=== PATIENT | female | born 1945 | race Caucasian/White ===

== ENCOUNTER 2023-12-21 10:20 | Outpatient (CLI) | payer MEDICARE, OTHER, SELFPAY ==
[2023-12-21 11:41] LABS: Basophils Absolute Auto 0.1 K/mm3 (0.0-0.1); Eosinophils Absolute Auto 0.2 K/mm3 (0-0.3); Hematocrit 37.6 % (37.0-47.0); Immature Granulocyte Absolute 0.02 K/mm3 (0.00-0.031); Immature Granulocyte Percent A 0.3 % (0-0.5); Lymphocytes Percent Auto 28.7 % (18.3-44.2); Mean Corpuscular HGB Conc 34.6 g/dl (32-36); Mean Corpuscular Hemoglobin 33.7 pg (26-34); Mean Corpuscular Volume 97.4 fl (80-100); Mean Platelet Volume 9.4 fl (7.4-10.4); Monocytes Absolute Auto 0.5 K/mm3 (0.1-0.6); Monocytes Percent Auto 8.1 % (2.6-8.5); Neutrophils Absolute Auto 3.5 K/mm3 (1.3-6.7); Neutrophils Percent Auto 58.9 % (45.5-73.1); Platelet Count Result 171 k/mm3 (150-375); Red Blood Count 3.86 M/mm3 (4.2-5.4); White Blood Count 5.9 K/mm3 (4.5-10.0)
[2023-12-21 11:59] LABS: Alanine Aminotransferase 49 U/L (6-35); Albumin Level 4.6 g/dL (3.5-5.1); Alkaline Phosphatase 40 U/L (38-126); Anion Gap 8 mmol/L (4-12); Aspartate Amino Transferase 49 U/L (14-36); Bilirubin,Total 0.7 mg/dL (0.2-1.3); Blood Urea Nitrogen 15 mg/dL (7-17); Calcium 8.7 mg/dL (8.4-10.2); Carbon Dioxide 29 mmol/L (22-30); Chloride 102 mmol/L (98-107); Cholesterol 148 mg/dL (0-200); Estimated Glomerular Filt Rate > 60; Glucose 88 mg/dL (65-110); HDL Direct 68 mg/dL; Potassium 4.6 mmol/L (3.4-5.0); Sodium 139 mmol/L (137-145); Triglycerides 116 mg/dL (<150)
[2023-12-21 12:09] LABS: LDL Cholesterol Direct 56 mg/dL
== END 2023-12-21 10:21 | disposition home or self-care (01) ==
DX: I10 Essential (primary) hypertension (principal); E78.5 Hyperlipidemia, unspecified
CPT/HCPCS: 36415; 80053; 80061; 84443; 85025

== ENCOUNTER 2024-09-26 21:56 | Inpatient (IN) | payer MEDICARE, OTHER, SELFPAY ==
[2024-09-26] VITALS (7 sets, daily range): BP systolic 93–138; BP diastolic 48–106; PULSE 73; RESP 16; TEMP 36.3; O2SAT 99–100
--- NOTE | ~2024-09-26 | MR_ITS ---
EXAMINATION: MR MRCP wo/w con/w 3D wo ind DATE: 09/28/2024 11:53 INDICATION: Pancreatic lesion. Elevated liver function tests. TECHNIQUE: Magnetic resonance imaging (MRI) of the abdomen was performed without and with 14 mL Multi tara intravenous contrast. Sequences included coronal T2-weighted SS-FSE, coronal T2-weighted FS SS- FSE, coronal T2-weighted FS FIESTA, axial T2-weighted FS FIESTA, axial T2-weighted FIESTA, sagittal T 2-weighted SS-FSE, axial T1-weighted dual-echo FSPGR, axial T2-weighted SS-FSE, axial T1-weighted LAV A, axial T2-weighted STIR FSE. Thick-slab T2-weighted FRFSE-XL images were obtained for magnetic reso nance cholangiopancreatography (MRCP). Rotating maximum intensity projection 3-D reconstructions of t he volumetric data were created by the technologist. Postcontrast sequences included a time course of axial T1-weighted LAVA. COMPARISON: CT dated 09/27/2024 FINDINGS: ABDOMEN MRI: Heart size is normal. No pericardial effusion. Small bilateral pleural effusions with dependent conso lidation in the bilateral lower lobes. Couple T2 hyperintense nonenhancing hepatic cysts the larger m easuring 1.5 cm in the right hepatic lobe with a few thin internal septations. Gallbladder, spleen, p ancreas, bilateral adrenal glands and left kidney are normal. 5 mm T2 hyperintense cyst at the mid ri ght kidney. 1.6 x 1.2 cm cystic lesion at the head of the pancreas with a few smaller cystic lesions at the tail of the pancreas the next largest measuring 9 mm in maximal diameter. These all appear to demonstrate communication to the main pancreatic duct and are without evident solid enhancing soft ti ssue components again seen is edematous wall thickening of the colon beginning at the mid transverse colon and extending through the descending colon consistent with colitis. The appendix and visualized small bowel are unremarkable. Small amount of ascites scattered throughout the abdomen and pelvis. M etallic magnetic field artifact associated with bilateral vertical yarelis and pedicle screw fixation for an L2-L5 instrumented posterior spinal fusion as well as an anterior plate and screws for L5-S1 ante rior spinal fusion. ABDOMEN MRCP: No intrahepatic biliary ductal dilation. Common bile duct measures up to 5 mm in janee l diameter which is normal. No intraluminal filling defects to suggest choledocholithiasis. IMPRESSION: 1. Prominent edematous wall thickening of the distal transverse and descending colon consistent with colitis which could be infectious, inflammatory or ischemic in etiology. 2. 1.6 x 1.2 cm cystic lesion at the head of the pancreas with a few subcentimeter cystic lesions at the tail the pancreas which appear to demonstrate communication with the main pancreatic duct favorin g either pseudocysts and dilated pancreatic side branches related to prior acute pancreatitis or intr aductal papillary mucinous neoplasm (IPMN) versus less likely mucinous cystic neoplasm (MCN), and the less common serous cystadenoma and neuroendocrine tumor. Correlate for history of pancreatitis. Cons ider 2 year follow-up pre and postcontrast MRI. 3. Small amount of likely reactive ascites in the abdomen and pelvis. 4. Small bilateral pleural effusions with dependent consolidation the bilateral lower lobes which cou ld represent atelectasis or pneumonia. Reviewed, dictated and finalized at location A. IMPRESSION: 1. Prominent edematous wall thickening of the distal transverse and descending colon consistent with colitis which could be infectious, inflammatory or ischem ic in etiology. 2. 1.6 x 1.2 cm cystic lesion at the head of the pancreas with a few subcentime ter cystic lesions at the tail the pancreas which appear to demonstrate communi cation with the main pancreatic duct favoring either pseudocysts and dilated pa ncreatic side branches related to prior acute pancreatitis or intraductal papil deja mucinous neoplasm (IPMN) versus less likely mucinous cystic neoplasm (MCN) , and the less common serous cystadenoma and neuroendocrine tumor. Correlate fo r history of pancreatitis. Consider 2 year follow-up pre and postcontrast MRI. 3. Small amount of likely reactive ascites in the abdomen and pelvis. 4. Small bilateral pleural effusions with dependent consolidation the bilateral lower lobes which could represent atelectasis or pneumonia.
--- NOTE | ~2024-09-26 | CT_ITS ---
CT of the Abdomen and Pelvis: Indication: Abdominal pain Technique: 2.5 mm axial scans were obtained through the abdomen and pelvis following intravenous adm inistration of 100 cc of Omnipaque 350. Dose reduction technique was used on this scan by utilizing a utomated exposure control and iterative reconstruction technique. The dose-length product (DLP) was 6 47.05 mGy-cm. Findings: Scans through the lung bases are unremarkable. Small hepatic cysts are present. There is a probable cystic mass of the pancreatic head/neck measurin g 1.5 cm in diameter (axial image 69). The spleen, gallbladder, adrenals and kidneys are within letha l limits. There are atherosclerotic calcifications of the aorta. No lymphadenopathy. Suspected mild wall thickening of the large bowel, especially the distal transverse colon, descending colon, and sigmoid colon. No bowel obstruction. No abscess or free air. Images through the pelvis were performed. Urinary bladder unremarkable. No pelvic mass evident. No as cites. There is fusion of the spine from L2 through S1. Impression: Suspected infectious/inflammatory colitis involving the distal transverse colon, descending colon, an d sigmoid colon. No bowel obstruction. No abscess or free air. 1.5 cm probable cystic mass in the pancreatic head/neck. Consider follow-up MR/MRCP to further evalua te. Reviewed, dictated and finalized at location . Impression: Suspected infectious/inflammatory colitis involving the distal transverse colon , descending colon, and sigmoid colon. No bowel obstruction. No abscess or free air. 1.5 cm probable cystic mass in the pancreatic head/neck. Consider follow-up MR/ MRCP to further evaluate.
--- NOTE | ~2024-09-26 | XR_ITS ---
CHEST RADIOGRAPH CLINICAL HISTORY: syncope . COMPARISON: None available TECHNIQUE: Single portable view of the chest. FINDINGS The cardiomediastinal silhouette is unremarkable. The lungs are clear. IMPRESSION: No focal infiltrate or effusion. Reviewed, dictated and finalized at location A.
--- NOTE | ~2024-09-26 | CT_ITS ---
History: Syncope PROCEDURE: CT head without contrast. COMPARISON: None TECHNIQUE: Axial imaging of the head performed from the skull base to the vertex without IV contrast. Sagittal a nd coronal reformations obtained. DLP: 681 mGy-cm FINDINGS: The ventricles are enlarged. The dilatation of the ventricles is proportional to the degree of sulcal prominence, not uncommon in the senescent brain. Calcifications of the basal ganglia are present, a nonspecific finding. Decreased attenuation is identified within the periventricular white matter, likely secondary to micr ovascular ischemic disease, in a patient of this age. There is no mass, mass effect or midline shift. There is no abnormal extra-axial fluid collection or intracranial hemorrhage. Air-fluid level is identified within the bilateral maxillary sinuses. Mucoperiosteal thickening within the ethmoid sinuses. Air-fluid levels within the sphenoid sinuses. The mastoid air cells are well aerated. No acute displaced fractures within the overlying cranium. Impression: No acute intracranial hemorrhage or suspicious mass effect. Inflammatory sinus disease Reviewed, dictated and finalized at location A. Impression: No acute intracranial hemorrhage or suspicious mass effect. Inflammatory sinus disease
--- NOTE | 2024-09-26 22:07 | ECG_ITS ---
Test Date: 2024-09-26 22:01:22 Measurements Intervals [place] Rate: 70 P: 4 [place]: 176 QRS: -48 QRSD: 151 T: 92 QT: 449 QTc: 485 Interpretive Statements SINUS RHYTHM LEFT AXIS DEVIATION LEFT BUNDLE BRANCH BLOCK BASELINE ARTIFACT- I, II, III, AVR, AVL, AVF, V1-V2 ABNORMAL ECG No previous ECG available for comparison Electronically Signed On 09-27-2024 07:07:33 CDT by Vicente Potter D.O.
--- NOTE | 2024-09-26 22:17 | ED_ITS ---
HPI - General Adult General Chief complaint: Syncope Stated complaint: syncope Time Seen by Provider: 09/26/24 22:02 History of Present Illness HPI narrative: Patient 79-year-old female who presents emergency department with chief complaint of syncope and abdominal pain. The patient reports that she has had problems with irritable bowel and reports that she normally has a bowel movement every other day patient states that this evening she started having cramping in her abdomen reports he had ago the bathroom and went to the bathroom the patient states her stomach was cramping and then she became very lightheaded diaphoretic and briefly passed out the patient states she is having no chest pain reports she feels weak and reports he feels as though she needs to have a bowel movement. The patient reports that she has had issues since she had a surgery that was complicated with a bowel perforation that was done in [place] Related Data Allergies Allergy/AdvReac Type Severity Reaction Status Date / Time No Known Allergies Allergy Mild Unverified 12/09/03 08:12 Penicillins Allergy Unknown Verified 08/25/10 10:22 NKDA, NKFA Allergy Unknown Uncoded 10/01/02 12:10 Review of Systems 2 Review of Systems: A 10 system review of systems was completed on the patient and is negative except for what is stated in the HPI. Nursing and ancillary documentation was reviewed. [facility] Social History Social History Smoking status: Never smoker Alcohol intake: never Exam 2 Narrative: GENERAL: Ill-appearing, well-nourished, and in no acute distress. Diaphoretic HEAD: Normocephalic, atraumatic. EYES: PERRLA and EOMI. ENT: Nares clear, no rhinorrhea or epistaxis. Mucous membranes moist. NECK: Supple. CHEST: Clear to auscultation. No respiratory distress. HEART: Regular rate and rhythm. No murmur heard. Normal peripheral pulses. ABDOMEN: Soft, diffusely tender to palpation, nondistended, normal active bowel sounds. gu: guiac positive stool EXTREMITIES: Normal range of motion. No edema. SKIN: Warm, dry, no rash. NEURO: No focal deficits. Alert and oriented x3. PSYCH: Normal mood and affect. Course Vital Signs Vital signs: Vital Signs Temperature 36.3 C L 09/26/24 21:56 Pulse Rate 73 09/26/24 21:56 Respiratory Rate 16 09/26/24 21:56 Blood Pressure 93/48 L 09/26/24 21:56 Pulse Oximetry 100 09/26/24 21:56 Oxygen Delivery Room Air 09/26/24 21:56 Temperature 36.3 C L 09/26/24 21:56 Pulse Rate 83 09/27/24 01:00 Respiratory Rate 17 09/27/24 01:00 Blood Pressure 121/59 L 09/27/24 01:00 Pulse Oximetry 100 09/27/24 01:00 Oxygen Delivery Room Air 09/26/24 21:56 Medical Decision Making Vital Signs Vital Signs: Vital Signs Temperature 36.3 C L 09/26/24 21:56 Pulse Rate 73 09/26/24 21:56 Respiratory Rate 16 09/26/24 21:56 Blood Pressure 93/48 L 09/26/24 21:56 Pulse Oximetry 100 09/26/24 21:56 Oxygen Delivery Room Air 09/26/24 21:56 Temperature 36.3 C L 09/26/24 21:56 Pulse Rate 83 09/27/24 01:00 Respiratory Rate 17 09/27/24 01:00 Blood Pressure 121/59 L 09/27/24 01:00 Pulse Oximetry 100 09/27/24 01:00 Oxygen Delivery Room Air 09/26/24 21:56 Lab Data 09/26/24 22:23 09/26/24 22:23 Labs: Lab Results 09/26/24 09/26/24 09/26/24 Range/Units 22:22 22:23 22:39 WBC 7.9 (4.5-10.0) K/mm3 RBC 4.35 (4.2-5.4) M/mm3 Hgb 13.8 (12.0-15.0) g/dL Hct 40.6 (37.0-47.0) % MCV 93.3 (80-100) fl MCH 31.7 (26-34) pg MCHC 34.0 (32-36) g/dl RDW 11.9 (11.5-14.5) % Plt Count 197 (150-375) k/mm3 MPV 9.0 (7.4-10.4) fl Immature Gran % (Auto) 0.3 (0-0.5) % Neut % (Auto) 44.1 L (45.5-73.1) % Lymph % (Auto) 47.9 H (18.3-44.2) % [place] % (Auto) 3.5 (2.6-8.5) % Eos % (Auto) 3.4 (0-4.4) % Baso % (Auto) 0.8 (0.2-1.2) % Lymph # (Auto) 3.80 H (0.9-3.2) K/mm3 [place] # (Auto) 0.3 (0.1-0.6) K/mm3 Eos # (Auto) 0.3 (0-0.3) K/mm3 Baso # (Auto) 0.1 (0.0-0.1) K/mm3 Abs Immat Gran (auto) 0.02 (0.00-0.031) K/mm3 Absolute Neuts (auto) 3.5 (1.3-6.7) K/mm3 Absolute Nucleated RBC 0.000 (0.0-0.012) K/mm3 Nucleated RBC % 0.0 (0.0-0.2) % PT 13.9 (11.1-14.7) Seconds INR 1.1 APTT 24.1 (22.3-36.8) Seconds Sodium 138 (137-145) mmol/L Potassium 3.4 (3.4-5.0) mmol/L Chloride 106 (98-107) mmol/L Carbon Dioxide 22 (22-30) mmol/L Anion Gap 10 (4-12) mmol/L BUN 18 H (7-17) mg/dL Creatinine 0.81 (0.7-1.0) mg/dL Estim Creat Clear Calc 42 ml/min Estimated GFR > 60 (59 - ) Glucose 122 H (65-110) mg/dL Lactic Acid 2.7 H (0.7-2.0) mmol/L Calcium 9.5 (8.4-10.2) mg/dL Magnesium 3.1 H (1.6-2.3) mg/dL Total Bilirubin 0.8 (0.2-1.3) mg/dL AST 49 H (14-36) U/L ALT 47 H (6-35) U/L Alkaline Phosphatase 46 (38-126) U/L Troponin I < 0.012 (0.000-0.034) ng/mL Total Protein 7.6 (6.3-8.2) g/dL Albumin 4.6 (3.5-5.1) g/dL Lipase 190 (23-300) U/L Urine Color Dark yellow (Yellow) Urine Appearance Clear (Clear) Urine pH 6.5 (5.0-9.0) Ur Specific [place] 1.020 (1.001-1.035) Urine Protein 1+ H (Negative) mg/dL Urine Glucose (UA) Negative (Negative) mg/dL Urine Ketones Trace H (Negative) mg/dL Ur Blood (Man) Negative (Negative) Urine Nitrate Negative (Negative) Urine Bilirubin Negative (Negative) Urine Urobilinogen 1.0 (<2.0) mg/dL Add Ur Microanalysis Reviewed Leukocyte Esterase Rfl Negative (Negative) LAURIE/UL Urine RBC 0-2 (0-2) /hpf Urine WBC 0-5 (0-3) /hpf Ur Squamous Epith Cells None seen (Few) /hpf Urine Bacteria None seen /hpf Urine Casts 3-5 Hyaline Casts Present (None) /lpf Blood Type Antibody Screen 09/27/24 Range/Units 00:51 WBC (4.5-10.0) K/mm3 RBC (4.2-5.4) M/mm3 Hgb (12.0-15.0) g/dL Hct (37.0-47.0) % MCV (80-100) fl MCH (26-34) pg MCHC (32-36) g/dl RDW (11.5-14.5) % Plt Count (150-375) k/mm3 MPV (7.4-10.4) fl Immature Gran % (Auto) (0-0.5) % Neut % (Auto) (45.5-73.1) % Lymph % (Auto) (18.3-44.2) % [place] % (Auto) (2.6-8.5) % Eos % (Auto) (0-4.4) % Baso % (Auto) (0.2-1.2) % Lymph # (Auto) (0.9-3.2) K/mm3 [place] # (Auto) (0.1-0.6) K/mm3 Eos # (Auto) (0-0.3) K/mm3 Baso # (Auto) (0.0-0.1) K/mm3 Abs Immat Gran (auto) (0.00-0.031) K/mm3 Absolute Neuts (auto) (1.3-6.7) K/mm3 Absolute Nucleated RBC (0.0-0.012) K/mm3 Nucleated RBC % (0.0-0.2) % PT (11.1-14.7) Seconds INR APTT (22.3-36.8) Seconds Sodium (137-145) mmol/L Potassium (3.4-5.0) mmol/L Chloride (98-107) mmol/L Carbon Dioxide (22-30) mmol/L Anion Gap (4-12) mmol/L BUN (7-17) mg/dL Creatinine (0.7-1.0) mg/dL Estim Creat Clear Calc ml/min Estimated GFR (59 - ) Glucose (65-110) mg/dL Lactic Acid 2.2 H (0.7-2.0) mmol/L Calcium (8.4-10.2) mg/dL Magnesium (1.6-2.3) mg/dL Total Bilirubin (0.2-1.3) mg/dL AST (14-36) U/L ALT (6-35) U/L Alkaline Phosphatase (38-126) U/L Troponin I < 0.012 (0.000-0.034) ng/mL Total Protein (6.3-8.2) g/dL Albumin (3.5-5.1) g/dL Lipase (23-300) U/L Urine Color (Yellow) Urine Appearance (Clear) Urine pH (5.0-9.0) Ur Specific [place] (1.001-1.035) Urine Protein (Negative) mg/dL Urine Glucose (UA) (Negative) mg/dL Urine Ketones (Negative) mg/dL Ur Blood (Man) (Negative) Urine Nitrate (Negative) Urine Bilirubin (Negative) Urine Urobilinogen (<2.0) mg/dL Add Ur Microanalysis Leukocyte Esterase Rfl (Negative) LAURIE/UL Urine RBC (0-2) /hpf Urine WBC (0-3) /hpf Ur Squamous Epith Cells (Few) /hpf Urine Bacteria /hpf Urine Casts Hyaline Casts (None) /lpf Blood Type A Positive Antibody Screen Negative Discharge Plan Discharge Clinical Impression: Colitis, Vasovagal syncope Patient Disposition: Still a Patient Condition: Stable Patient Language: Urdu Follow-up/Referrals: [place], [place] [Other] Time of Disposition: 03:28
--- OUTSIDE RECORDS SUMMARY | 2024-09-26 22:23 | XMS_ITS | Data Portability ---
Author Organization [place] - [facility], [facility] - Address [address] [place] [address] Assessment No assessment recorded. Plan of Treatment Reminders Order Date Submit Date Provider Last Modified By Organization Details Last Modified Time Details Appointments None recorded. Lab CMP, serum or plasma 2024 025 [facility] (Lab), [place], [address], 5 13:41:52 CMP, serum or plasma [address] (Lab), [place], [address], 4 13:08:30 CBC [address] (Lab), [place] [address], [address], 4 13:08:31 TSH, serum or plasma [address] (Lab), [place] [address], [address], 4 13:08:31 LDL, calculated , serum (OBS) [address] (Lab), [place] [address], [address], 4 13:08:31 Referral physical therapist [facility] [address] [place], [address], 4 15:15:22 Procedures None recorded. Surgeries None recorded. Imaging US, breast, unilateral 2022 023 [email or web address] 0 [facility] (Radiology), [address], [place], [address], 3 16:40:32 Medication Orders dexamethas one sodium phosphate 10 mg/mL injection solution 2024 025 [email or web address], [address] [place] [address], [id number], 5 14:11:15 metoprolol succinate ER 25 mg tablet,ext ended release 24 hr 2023 024 [email or web address], [address] [place] [address], [id number], 5 13:16:06 gabapentin 100 mg capsule 2023 024 [email or web address], [address] [place] [address], [address], 5 13:15:25 Valium 2 mg tablet [address]23 [address] [facility]Pharmacy #[id number], [address] [place], [address], 4 16:39:28 Actonel 150 mg tablet 2022 [address] [facility]/Pharmacy #[id number], [address] [place], [address], 3 16:36:01 Voltaren Arthritis Pain 1 % topical gel [address]22 [address] [facility]/Pharmacy #[id number], [address] [place], [address], 3 16:25:22 Patient TargetsNo targets recorded. Patient Instructions Encounter Date Encounter Id Patient Instructions Last Modified By Organization Details Last Modified Time 04/17/2024 [id number] high blood pressure: care instructions Not available 04/17/2024 13:41:52 learning about high blood pressure Not available 04/17/2024 13:41:52 high cholesterol : care instructions Not available 04/17/2024 13:41:52 Reason for Referral Physical Therapist Referral for Spasm of back muscles Referring Physician: Clinton Mckay, Family Medicine, Encounter Date: 04/27/2023 Results Created Date Observation Date Name Description Value Unit Range Abnormal Flag Note LastModifiedBy Organization Detail LastModifiedTime 02/29/20 23 02/15/2023 MAMMO , scree robert, digit al, bilat eral No observ ation record ed. [id number] [place], [place], [address], 06/10/2023 10:38:04 03/21/20 23 02/15/2023 MAMMO , scree robert, bilat eral No observ ation record ed. [email or web address] Not Available 2022 18:21:24 Result Notes None recorded. Problems Name Problem SNOMED Code Status Onset Date Resolution Date Notes Provider Name and Address Organization Details Recorded Time Essential hypertensio n 28202491 Active 2022 Jordyn armendariz [facility] [place] 3 11:33:07 Mammography abnormal 716286748 Active [address], [address], [facility] 3 16:21:52 Osteoarthri tis 223589193 Active [address], [address], [facility] [place] 3 16:24:28 Osteoporosi s 10602259 Active [address], [place], [address], [place] [facility] 3 16:35:08 Spasm of back muscles 523932703 Active [address], [place], [address], [place] [facility] 4 15:46:32 Hyperlipide mya 05602115 Active 2023 Jordyn Gianni null, [facility] 4 09:27:56 Occult blood detected in feces 06660844 Active 2023 Jordyn Gianni null, [facility] 4 09:28:07 Pain of right knee joint 6728061005771 00 Active 2023 Jordyn Gianni null, [facility] 4 09:28:13 Rheumatoid arthritis 59535846 Active 2023 Jordyn Gianni [facility], [facility] 4 09:28:17 Strain of neck muscle 224399578 Active [address], [address], [place] [facility] 4 17:21:12 Neuropathy 562615179 [facility], [address], [place] [facility] 4 17:10:18 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 Procedures Surgical History Date Name Laterality Status Provider Name and Address Organization Details Recorded Time 08/10/19 Knee Replacement completed Not Available [facility] 05/2023 10:37:05 Neurosurgery completed Jennifer Prince [facility] 04/24/2018 16:21:54 Back Surgery [facility] 10:37:05 Cataract Surgery completed Not Available [facility] 06/10/2023 10:37:05 Unlisted procedure stomach completed Not Available [facility] 06/10/2023 10:37:05 Unlisted procedure shoulder completed Not Available [facility] 06/10/2023 10:37:05 Imaging Results None recorded. Procedure Notes None recorded. Medical Equipment None Reported. Allergies No known drug allergies Medications Name Sig Start Date Stop Date Status Note LastModified by Organization Details LastModified Time atorvasta tin 40 mg tablet Take 1 tablet every day by oral route. 03/13 completed Not Available Not Available Not Available atorvasta tin 80 mg tablet take 1 tablet by oral route every day 2023 active Not Available Not Available Not Avai lable doxycycli ne hyclate 100 mg capsule TAKE 1 CAPSULE BY MOUTH TWICE A DAY 02/02 completed Not Available Not Available Not Available sulfasala zine 500 mg tablet 12/28 completed Not Available Not Available Not Available Medrol (Liam) 4 mg tablets in a dose pack take tablets as directed 07/04 completed Not Available Not Available Not Available Noritate 1 % topical cream APPLY TO AFFECTED AREA EVERY DAY 12/28 completed Not Available Not Available Not Available tramadol 50 mg tablet Take 1 tablet every 6 hours by oral route. active Not Available Not Available No t Available oxycodone -acetamin ophen 5 mg-325 mg tablet TAKE 1 TABLET BY MOUTH EVERY 6 HOURS NEEDED 07/04 completed Not Available Not Available Not Available quinapril 10 mg tablet Take 1 tablet every day by oral route. 03/13 completed Not Available Not Available Not Available Valium 2 mg tablet Take 1 tablet 3 times a day by oral route. 07/04 completed Not Available Not Available Not Available oxycodone -acetamin ophen 10 mg-325 mg tablet TAKE 1 TABLET BY MOUTH EVERY 4 HOURS NEEDED FOR PAIN 12/28 completed Not Available Not Available Not Available cephalexi n 500 mg capsule TAKE 1 CAPSULE (500 MG) BY ORAL ROUTE EVENING AFTER SURGERY AND TAKE ONE THE FOLLOWIN G MORNING. 07/04 completed Not Available Not Available Not Available pantopraz ole 40 mg tablet,de layed release take 1 tablet by oral route every day 02/02 completed Prescrib ed Elsewher e: No Brand Name: PANTOPRA ZOLE SODIUM M odify By: HATTIE Elizabeth e ID: [id number] Enc ounter DateTime : 09/09/19 11:53:42 AM Not Available Not Available Not Available erythromy zenia 5 mg/gram (0.5 %) eye ointment PLACE A THIN RIBBON ON THE THE AFFECTED EYELID 4 TIMES DAILY FOR 5-7 DAYS 02/02 completed Not Available Not Available Not Available Cipro 500 mg tablet take 1 tablet by oral route every 12 hours 10/19 completed Prescrib ed Elsewher e: No Brand Name: CIPRO Or iginal Start Date: 20211007 Modify By: HATTIE Elizabeth e ID: [id number] Enc ounter DateTime : 10/08/19 02:26:48 PM Not Available Not Available Not Available lisinopri l 10 mg tablet Take 1 tablet(s ) every day by oral route. 2023 active Not Available Not Available Not Avai lable mupirocin 2 % topical ointment APPLY A SMALL AMOUNT TO THE AFFECTED AREA BY TOPICAL ROUTE 3 TIMES PER DAY. 07/04 completed Not Available Not Available Not Available gabapenti n 100 mg capsule TAKE 1 CAPSULE BY MOUTH THREE TIMES DAILY 04/17 completed Not Available Not Available Not Available metoprolo l succinate ER 25 mg tablet,ex tended release 24 hr Take 1 tablet(s ) every day by oral route. 2024 active Not Available Not Available Not Avai lable hydroxych loroquine 200 mg tablet Take 1 tablet twice a day by oral route. 04/17 completed Not Available Not Available Not Available celecoxib 100 mg capsule 02/02 completed Not Available Not Available Not Available ondansetr on 4 mg disintegr ating tablet TAKE 1 TABLET BY MOUTH EVERY 4 HOURS 12/28 completed Not Available Not Available Not Available dexametha sone sodium phosphate 10 mg/mL injection solution Take 10 mg by injectio n route. 2024 active Not Available Not Available Not Avai lable metronida zole 0.75 % topical gel APPLY TO AFFECTED AREA ON FACE EVERY DAY 04/17 completed Not Available Not Available Not Available azelaic acid 15 % topical gel 02/02 completed Not Available Not Available Not Available nitrofura ntoin monohydra te/macroc rystals 100 mg capsule TAKE 1 TABLET BY MOUTH TWICE A DAY 12/28 completed Not Available Not Available Not Available Cymbalta 60 mg capsule,d elayed release Take 1 capsule every day by oral route. 03/13 completed Not Available Not Available Not Available calcium 333 mg-vit D3 200 unit-magn esium 133 mg-zinc 5 mg tablet Take by oral route. 03/13 completed Not Available Not Available Not Available risedrona te 150 mg tablet TAKE 1 TABLET BY MOUTH EVERY MONTH 2024 active Not Available Not Available Not Avai lable Eliquis 5 mg tablet TAKE 1 TABLET BY MOUTH TWICE A DAY 12/28 completed Not Available Not Available Not Available ivermecti n 1 % topical cream APPLY TO AFFECTED AREA AT BEDTIME 04/17 completed Not Available Not Available Not Available Voltaren Arthritis Pain 1 % topical gel APPLY 2 GRAMS TO THE AFFECTED AREA(S) BY TOPICAL ROUTE 4 TIMES PER DAY 2024 active Not Available Not Available Not Avai lable Sutab 1.479-0.1 88-0.225 gram tablet USE DIRECTED . 07/04 completed Not Available Not Available Not Available Vitals Date Recorded Body height Body mass index (BMI) Body weight Heart rate Oxygen saturation Oxygen saturation in Arterial blood by Pulse oximetry Systolic blood pressure Diastolic blood pressure Provider Name and Address Organization Details Last Updated DateTime 152.4 cm 27.7 kg/m2 85173.1 2 g 72 /min 97 % 97 % 110 mm[Hg] 68 mm[Hg] [facility] 5 13:19:10 Date Recorded Body height Oxygen saturation Oxygen saturation in Arterial blood by Pulse oximetry Heart rate Body mass index (BMI) Body weight Systolic blood pressure Diastolic blood pressure Provider Name and Address Organization Details Last Updated DateTime 4 152.4 cm 99 % 99 % 97 /min 26.4 kg/m2 36480.9 7 g 97 mm[Hg] 53 mm[Hg] Gail montalvo [facility] 4 15:24:57 Date Recorded Body height Heart rate Oxygen saturation Oxygen saturation in Arterial blood by Pulse oximetry Systolic blood pressure Diastolic blood pressure Provider Name and Address Organization Details Last Updated DateTime 4 152.4 cm 101 /min 99 % 99 % 116 mm[Hg] 62 mm[Hg] [facility] [place] 4 17:26:11 Date Recorded Body height Body mass index (BMI) Body weight Heart rate Oxygen saturation Oxygen saturation in Arterial blood by Pulse oximetry Systolic blood pressure Diastolic blood pressure Provider Name and Address Organization Details Last Updated DateTime 4 152.4 cm 26.6 kg/m2 50744.5 6 g 80 /min 98 % 98 % 110 mm[Hg] 60 mm[Hg] [facility] [place] 4 16:43:21 Date Recorded Body weight Body mass index (BMI) Body height Oxygen saturation Oxygen saturation in Arterial blood by Pulse oximetry Heart rate Systolic blood pressure Diastolic blood pressure Provider Name and Address Organization Details Last Updated DateTime 3 37132.3 8 g 26.2 kg/m2 152.4 cm 98 % 98 % 78 /min 120 mm[Hg] 62 mm[Hg] [facility] [place] 3 16:13:28 Social History Question Answer Notes LastModified by Organizat ion Details LastModified Time Tobacco Smoking Status [facility]2018 16:29:31 Do You Have An Advance Directive? Yes Information not available 04/24/2018 Are You Blind Or Do You Have Difficulty Seeing? No Information not available 04/17/2024 What Is Your Level Of Caffeine Consumption? Occasional Information not available 03/13/2023 Are You Deaf Or Do You Have Serious Difficulty Hearing? No [email or web address] Information not available 04/17/2024 Diabetes No Information no t available 04/24/2018 What Type Of Diet Are You Following? REGULAR Information not available 04/24/2018 Family History Of Heart Disease? Yes Information not available 04/24/2018 High Blood Pressure Yes Information not available 04/24/2018 High Cholesterol No Informat ion not available 04/24/2018 Do You Have Difficulty Bathing Yourself Without Assistance? No [email or web address] Information not available 04/17/2024 Are You Able To Eat And Drink Without Assistance? Yes [email or web address] Information not available 04/17/2024 Is It Difficult To Get Yourself Up And Out Of Bed Or A Chair? No Information not available 04/17/2024 Marital Status Informatio n not available 04/24/2018 Do You Have A Medical Power Of Radiator Repairer? Yes [email or web address] Information not available 04/17/2024 What Was The Date Of Your Most Recent Tobacco Screening? 04/17/2024 Information not available 04/17/2024 What Is Your Relationship Status? [id number] Information not available 06/10/2023 Do You Use Your Seat Belt Or Car Seat Routinely? Yes [email or web address] Information not available 04/17/2024 How Much Tobacco Do You Smoke? No Information not available 04/24/2018 General Stress Level Low Information not available 04/24/2018 Do You Use Sunscreen Routinely? Yes [email or web address] Information not available 04/17/2024 Has Tobacco Cessation Counseling Been Provided? Yes Information not available 03/13/2023 On What Date Was Tobacco Cessation Counseling Provided? 04/17/2024 [email or web address] Information not available 04/17/2024 How Many Years Have You Smoked Tobacco? 0 Information not available 04/24/2018 Do You Have Difficulty Walking Or Climbing Stairs? No [email or web address] Information not available 04/17/2024 Sex: Unknown Functional Status Question Answer Note LastModified by Organizat ion Details LastModified Time Do you use any illicit or recreational drugs? No Information not available 03/13/2023 Do you or have you ever used any other forms of tobacco or nicotine? No Information not available 03/13/2023 What is your level of alcohol consumption? None Information not available 04/24/2018 Do you have transportation difficulties? No Information not available 04/17/2024 Are you able to walk? YESWOREST [email or web address] Information not available 04/17/2024 Do you have difficulty doing errands alone? No [email or web address] Information not available 04/17/2024 Are you able to care for yourself? Yes [id number] Information not available 06/10/2023 What is your occupation? retired Information not available 04/24/2018 Do you have difficulty dressing or bathing? No [email or web address] Information not available 04/17/2024 What is your exercise level? Occasional Information not available 04/24/2018 Mental Status Question Answer Note LastModified by Organization D etails LastModified Time Do you have difficulty concentrating, remembering or making decisions? No [email or web address] Information no t available 04/17/2024 Family History Relationship Description Onset Age of this Age Resolved Age Notes LastModified by Organization Details LastModified Time Father Heart disease Not available 2018 16:21:13 Mother Heart disease Not available 2018 16:21:13 Medical History Condition Response Coronary Artery Disease N CVA/TIA (Stroke) N Neurologic Disorder (Parkinson's, tremor , MS) N COPD N Depression/Anxiety N Pacemaker N Peripheral Arterial Disease N Anemia N Genitourinary Disease N Gastrointestinal Disease N Heart Attack (CA) N Deep Vein Thrombosis N Diabetes N Cardiomyopathy N Antiplatelet/Anticoagulant Therapy N Congestive Heart Failure (CHF) N Hyperlipidemia N Cancer Y Asthma N Aortic Aneurysm N Liver Disease N Valvular Abnormalities N Arrhythmia N Hypertension Y Kidney Disease N Hematologic Disease N Gynecological HistoryNo gynecological history recorded. Obstetrics History GPAL:G 0 P 0 0 0 0 Past Encounters Encounter ID Performer Location Encounter Start Date Encounter Closed Date Diagnosis/Indication Diagnosis SNOMED-CT Code Diagnosis ICD10 Code Diagnosis Note [id number] PEDRO JOHN MD. OFFICE - [facility] (SPECIAL[facility] Y OFFICE) [address] [place] [address] 04/24/2018 15:42:55 08/15/2020 03:48:50 Peripheral cyanosis 72271189 R23.0 Patient here to establish with CV with discolorat ion of her digits. Had been doing well with h/o RA until few months ago when she began to notice blue fingers/to es. Not painful and doesn't have any set trigger. Saw PCP who referred to Rhe[facility] and sent here. No CV c/o at all. Differenti al of this situation is very narrow from the cardiology . Doubt CHD Exam- no significan t abnormalit ies. Plan- echo and f/u in four weeks. Does not appear to be CV in origin. Rheumatoid arthritis 698 80113 M06.9 See above [id number] PEDRO JOHN MD. OFFICE - [facility] ([facility] OFFICE) [address] [place] [place] [address] 06/05/2018 14:17:41 06/05/2018 14:36:14 Peripheral cyanosis 76571241 R23.0 Patient here to establish with CV with discolorat ion of her digits. Had been doing well with h/o RA until few months ago when she began to notice blue fingers/to es. Not painful and doesn't have any set trigger. Saw PCP who referred to Rheum and sent here. No CV c/o at all. Differenti al of this situation is very narrow from the cardiology . Since our last visit, her echo was negative for etiology of her problem and her EF is normal. To have surgery and ok from my perspectiv e. Exam- no changes Plan- f/u six months and sooner if needed. Rheumatoid arthritis 698 95899 M06.9 See above Pre-surger y evaluation 492409114 Z01.818 RCRI would be moderate with FC >4 METs. No on exam and EKG noted No further testing needed prior prior [id number] [facility] [address] [place] [address] 03/13/2023 15:36:33 03/13/2023 16:40:32 Mammography abnormal 945005504 R92.8 will order ultrasound of left breast Osteoarthritis 021386924 M19.90 trial voltaren gel AAA qidl prn Osteoporosis 73782618 M8 1.0 will cont vitamin d and calciumwil l start actonel 150mg monthly [id number] [facility] [address] [place] [address] 04/27/2023 15:13:02 04/27/2023 16:17:05 Essential hypertension 62084647 I10 cont to monitor bp at homelow salt and caffeineco nt medication Osteoporosis 83528765 M8 1.0 will cont vitamin d and calciumwil l resume actonel 150mg monthly Spasm of back muscles 20 6033109 M62.830 will cont pain medication will refer to physical therapy [id number] [facility] [address] [place] [address] 05/16/2023 16:18:36 05/16/2023 17:37:00 Strain of neck muscle 692478866 S16.1XXA will give valium 2mg one po tid prn.use otc motrin /[facility]olma [facility] [id number] K[facility] [address] [place] [address] 02/02/2022 00:00:00 02/02/2022 16:50:16 [id number] [facility] [address] [place] [address] 12/28/2022 00:00:00 12/28/2022 14:06:10 [id number] [facility] [address] [place] [address] 01/18/2023 00:00:00 01/18/2023 15:08:02 [id number] [facility] [address] [place] [address] 07/05/2023 16:29:41 07/05/2023 17:44:30 Essential hypertension 39205263 I10 cont to monitor bp at homelow salt and caffeineco nt medication Hyperlipidemia 25405059 E78.5 discussed diet and exerciseco nt current medication labs in 3-6 mos Neuropathy 345039428 G62 .9 medication refilled. [id number] [facility] [address] [place] [address] 04/17/2024 13:00:42 04/17/2024 14:11:16 Essential hypertension 61595564 I10 cont to monitor bp at homelow salt and caffeineco nt medication Hyperlipidemia 90898765 E78.5 discussed diet and exerciseco nt current medication labs in 3-6 mos Physical examination 588 0005 Z00.00 exam completed today Rheumatoid arteritis 399 462585 M05.20 will give decadron 10mg imfollow up with rheumatolo gy in [place] Liver enzy mes level above reference range 753304562 R74.8 will repeat liver enzymes in 6 moscall with results. Health Concerns Section Related Observation LastModified by Organization Detai ls LastModified Time None Recorded Concern Status LastModified by Organization Details LastModified Time None Recorded Advance Directives Directive Y: Payers Insurance Date Sequence Insurance Name Policy Number Policy Cárdenas Covered Member ID Cárdenas Member ID Guarantor Name 05/14/2024 2 [employer] (MEDICARE SUPPLEMENT) Belen Miriam [id number] Belen Pineda 04/17/2024 1 [place] Belen Pineda [id number] Belen Miriam Notes Date Note Type Note Provider Name and Address Organization Details Recorded Time 023 text/ht ml Pt is here for f/u mammo.dexa scan demonstrates osteoporosis of upper ext and osteopenia of lower spine and pelvis. [facility] [address] [place] [address], [place], [address] , [facility] 03/13/2023 16:36:45 024 text/ht ml Mrs. Pineda is a 77yo female who has a history of basal cell carcinoma and hypertension. Pt is here for a medication review. Risedronate- states took it and felt woozy. Thinks this caused her fall. Been taking hydrocodone 5/325 from [facility], states not helping.Fell 03/21/23. seen at [facility]. got Xrays. Theresefarzana did surgery 03/31/23. currently doing rehab in [place] for wrist. Also has pain in shoulder and neck on lft side. Requesting muscle relaxer instead of pain pill. ELIF [address] [place] [address], [address] , [facility] 04/27/2023 15:48:31 024 text/ht ml Pt requesting referral. Pt reports left shoulder aching pain. She has noted since recent fall 03/21. Pt fell onto left side and tried to catch herself with the left wrist. She states pain is episodic. She has treated with acupuncture/massage/ice/heat with mild improvement. She would like to discuss options. ELIF [address] [place] [address], [place], [address] , [facility] 05/16/2023 17:33:28 024 text/ht ml HyperlipidemiaReported bypatient.Compliance:compliantHyperte nsionReported bypatient.Associated Symptoms:no shortness of breath; no palpitations Pt is here to have labs ordered for annual wellness appt. ELIF [address] [place] [address], [place], [address] , [facility] 07/05/2023 17:11:42 025 text/ht ml Annual Wellness VisitReported bypatient.Diet and Nutrition:healthy diet Fracture Risk:no recent explained fracture Physical Activity:exercises on a regular basis; good physical condition Additional Lifestyle Factors:no tobacco use Depression Risk:never feels sad, empty, or tearful; no loss of interest in activities; no significant changes in weight; no sleep disturbances or insomnia; no agitation; no loss of energy; no feelings of worthlessness or guilt; no thoughts of suicide; no history of depression; no history of mood disorders Hearing:wears hearing aids Vision:no vision problems Activities of Daily Living:able to bathe independently; able to dress independently; able to feed self independently; able to get out of chair or bed independently; able to groom independently; able to shop independently; able to toilet independently Falling:no fall in the past year Instrumental activities of daily living:able to grocery shop independently; able to manage medications independently; able to manage money independently; able to meal prep independently; able to use the phone independentlyHyperlipidemiaReported bypatient.Prior Tests:highest cholesterol level: 148 date:; highest LDL level: 56 date:; highest triglyceride level: 116 date:HypertensionReported bypatient.Associated Symptoms:no shortness of breath; no palpitations Pt is here for annual wellness visit with labs.Last colon screening-[facility]BT 01/02/23 negativeLast mammo-3DEXA-3Depress ion-noneUrinary esivyg-[id number] blood count-3.86 [facility] [address] [place] [address], [id number] , [facility] 04/17/2024 15:01:51 OBGyn Episode No OBEpisode recorded.
--- OUTSIDE RECORDS SUMMARY | 2024-09-26 22:23 | XMS_ITS | Continuity of Care Document ---
Author Organization [facility] Address [facility] [address] Phone Care Team Providers Care Costumer Assistant Name Role Phone Brian Ontiveros MD Unavailable Unavailable Allergies, Adverse Reactions, Alerts Substance Reaction Status Criticality No Known Allergies Active No Inform ation Medications Medication Instructions Dosage Effective Dates (start - stop) Status Comments Systane Balance 0.6 % eye drops - Active metoprolol tartrate 25 mg tablet take 1 tablet by oral route 2 times every day 25 MG - Active atorvastatin 40 mg tablet take 1 tablet by oral route every day 40 MG - Active PLAQUENIL (unknown strength) take 1 tablet by oral route every day Not Available - Active 10 mg quinapril 10 mg tablet take 1 tablet by oral route every day 10 MG - Active Procedures Procedure Date Scan Computerized; Retina Est Patient E/M Moderate MDM Scan Computerized; Retina Est Pt Complete Visual Akers, Extended Scan Computerized; Retina Est Pt Complete Est Patient E/M Low MDM Chalazion Exc Single Ophth Serv: Med Exam; Interm E Visual Akers, Extended Est Patient E/M Low MDM Scan Computerized; Retina Est Patient E/M Moderate MDM Ophth Serv: Exam-eval; Interme 20 Visual Akers, Extended Est Pt Complete Visual Akers, Extended Est Pt Complete Scan Computerized; Retina Visual Akers, Extended Est Pt Exp Prob Focused Visual Akers, Extended Est Pt Exp Prob Focused Visual Akers, Extended Scan Computerized; Retina Est Pt Complete Visual Akers, Extended Scan Computerized; Retina Est Pt Exp Prob Focused Est Pt Complete Visual Akers, Extended Est Pt Complete Visual Akers, Extended Scan Computerized; Retina Advance Directives Directive Yes / No Effective Date File Name No Information Encounters Encounter Description Practice Location Reason(s) For Visit Diagnoses Date Provider Providers Copied on Encounter [facility], [address] [place] [address], [id number] , tel:[phone] [facility] No Information 4 Rama Torres. [address] [place], [place], [id number], [place]. tel:[phone] Est Patient E/M Moderate MDM [email or web address], [address] [place], [place], [id number] , [place] tel:[phone] [facility] high risk med follow up (chief complaint) Drusen (degenerative) of macula, bilateralOther alf (current) drug therapy 4 Rama Torres. [address] [place], [place], [id number], [place]. tel:[phone] Referring Provider: Marc Chisholm, [address], [place], [address] . tel:[phone] [email or web address], [address] [place], [place], [id number] , tel:[phone] [facility] Plaquenil Check (chief complaint) Other alf (current) drug therapyDrusen (degenerative) of macula, bilateral Feb-2 0- 4 Senamdelyn Marc. [address] [facility], [place], [place], [id number], [place]. tel:[phone] Referring Provider: Marc Chisholm, [address] [facility], [place], [address] . tel:[phone] [email or web address], [address] [place] [address], [id number] , [place] tel:[phone] [facility] plaquenil (chief complaint) Other alf (current) drug therapyRheumatoid arthritis, unspecifiedVitreou s degeneration, bilateralDrusen (degenerative) of macula, bilateral Nov- 2 Yosi Tran. [address] [facility], [place], [place], [id number], [place]. tel:[phone] Referring Provider: Marc Chisholm, [address] [facility] [address] [facility], [place], [address] . tel:[phone] Est Patient E/M Low MDM [email or web address], [address] [place] [address], [id number] , [place] tel:[phone] [facility] Follow Up of Chalazion (chief complaint) Chalazion right upper eyelid Carlos-0 2 Rush Parr. [address], [place], [place], [id number], [place]. tel:[phone] Referring Provider: Keshav Beverly, [address], [place], [address] . tel:[phone] [email or web address], [address] [place] [address], [id number] , [place] tel:[phone] [facility] Chalazion excision (chief complaint) Chalazion right upper eyelid Apr-2 2 Rush Parr. [address], [place], [place], [id number], [place]. tel:[phone] Referring Provider: Keshav Beverly, [address], [place], [address] . tel:[phone] [email or web address], [address], [id number] , [place] tel:[phone] [facility] stye (chief complaint) Neoplasm of uncertain behavior of skin Apr-2 0- 2 Rush Parr. [address], [place], [place], [id number], [place]. tel:[phone] Est Patient E/M Low MDM [email or web address], [address] [place], [place], [id number] , [place] tel:[phone] [facility] Follow Up of CVF (chief complaint) Other extermination supervisor (current) drug therapyRheumatoid arthritis, unspecified 1 Yosi Tran. [address] [facility], [place], [place], [id number], [place]. tel:[phone] Referring Provider: Marc Chisholm, [address] [facility], [place], [address] . tel:[phone] Est Patient E/M Moderate MDM [email or web address], [address] [place], [place], [id number] , [place] tel:[phone] [facility] Plaquenil (chief complaint) Other extermination supervisor (current) drug therapy 1 Yosi Tran. [address], [place], [place], [id number], [place]. tel:[phone] Referring Provider: Marc Chisholm, [address] [facility], [place], [address] . tel:[phone] [email or web address], [address] [place], [place], [id number] , [place] [phone] [facility] Other secondary cataract, bilateral 0 No Information Referring Provider: Marc Chisholm, [address], [place], [address] . tel:[phone] [email or web address] [facility], [address] [place] [address], [id number] , tel:[phone] [facility] Other alf (current) drug therapyRheumatoid arthritis, unspecifiedOther secondary cataract, bilateral Nov-0 3-202 0 Senica Marc. [address], [place], [place], [id number], [place]. tel:[phone] Referring Provider: Marc Yosi Phan, [address], [place], [address] . tel:[phone] [email or web address], [address] [place] [address], [id number] , tel:[phone] [facility] Other extermination supervisor (current) drug therapyRheumatoid arthritis, unspecifiedOther secondary cataract, bilateral Aug-2 8-201 9 Senica Marc. [address], [place], [place], [id number], [place]. tel:[phone] Referring Provider: Marc Yosi Phan, [address], [place], [address] . tel:[phone] Est Pt Exp Prob Focused [facility], [address] [place] [address], [id number] , tel:[phone] [facility] Other alf (current) drug therapyRheumatoid arthritis, unspecified Apr-2 0-201 8 Senica Marc. [address], [place], [place], [id number], [place]. tel:[phone] Referring Provider: Marc Yosi Phan, [address], [place], [address] . tel:[phone] Est Pt Exp Prob Focused [facility], [address] [place] [address], [id number] , tel:[phone] [facility] Other alf (current) drug therapy 2-201 8 Senica Marc. [address] [facility], [place], [place], [id number], [place]. tel:[phone] Referring Provider: Marc Chisholm, [address] [facility], [place], [address] . tel:[phone] [email or web address], [address] [place] [address], [id number] , tel:[phone] [facility] Other extermination supervisor (current) drug therapy 5 8 Senica Marc. [address] [facility], [place], [place], [id number], [place]. tel:[phone] Referring Provider: Marc Chisholm, [address] [facility], [place], [address] . tel:[phone] Est Pt Exp Prob Focused [email or web address], [address] [place] [address], [id number] , tel:[phone] [facility] Other alf (current) drug therapy 8 7 Yosi Tran. [address] [facility], [place], [place], [id number], [place]. tel:[phone] Referring Provider: Marc Chisholm, [address] [facility], [place], [address] . tel:[phone] [email or web address], [address] [place] [address], [id number] , tel:[phone] [facility] Other alf (current) drug therapyOcular pain, right eye 6 Yosi Tran. [address] [facility], [place], [id number], [place]. tel:[phone] Referring Provider: Marc Chisholm, [address] [facility], [place], [address] . tel:[phone] [facility], [address] [place] [address], [id number] , tel:[phone] [facility] No Information 8-201 6 Senmadelyn Pembertonant. [address] [facility] [address] [place] [address], [id number], . tel:[phone] [facility], [address] [place] [address], [id number] , tel:[phone] [facility] No Information 0-201 5 Senmadelyn Tran. [address], [id number], . tel:[phone] Referring Provider: Marc Chisholm, [address], [address] . tel:[phone] [facility], [address] [place] [address], [id number] , tel:[phone] [facility] No Information 4 5 Yosi Tran. [address], [id number], . tel:[phone] Referring Provider: Kortney Driver, [address] [facility] [address] [place] [address], [address]. tel:[phone] Family History Family Member Type Diagnosis Age At Onset Problem (finding) Family history of Arthr itis Payers Payer name Insurance type Covered democrat ID Authoriza tion(s) [place] [employer] MB [id number] [facility] [id number] Social History Type Description Quantity Date Captured Comments Alcohol Use Details Unknown Caffeine Use Details Unknown Tobacco Use Status No Information Smoking Status No Information Sex Female Sexual Orientation Choose not to disclose Chief Complaint And Reason For Visit No Information Reason For Referral Reason For Referral No Information Plan Of Treatment Date Type Action Status Goal Tobacco cessation counseling completed Future Order: Radiology Order OC T Retina ([id number]), Ordered on: Ordered Future Order: Radiology Order OC T Retina ([id number]), Ordered on: Ordered History Of Present Illness Encounter Date Complaint History Of Prese nt Illness high risk med follow up 78 year old female here for high risk med follow up, patient still taking Plaquenil and has noticed it's taking longer for her to focus when reading. Patient isn't using any gtts at this time but does take Lutein Plaquenil Check The 78 year old female presents for evaluation of Plaquenil Check, Pt report blurriness at near only and occasionally having difficulties reading NVA OU on pill bottles. Normal reading has been fine. Pt denies any pain or irritation OU. Pt is not using eye drops at this time. Patient has been taking plaquenil for about 30 plus years. plaquenil The 76 year old female presents for evaluation of plaquenil. Pt reports no va changes. Pt reports some glare at night time although they've had it since after YAG OU. Pt uses OTC lubricant gtts PRN. Follow Up of Chalazion The 76 ye ar old female presents for Follow Up of Chalazion in the RUL. The patient had an office procedure about 6 weeks ago and she states the bump never went away. She did continue warm compresses but it did not seem to help. Chalazion excision The 76 year o ld female presents for Chalazion excision in the RUL. The patient was informed of procedure details and has signed the consent form. She has no concerns at this time. stye The 76 year old female presents for evaluation of stye in the right eye. The symptom is constant. The condition is described as itchy. Pt states she went to see primary doctor and had the doctor diane the growth on RUL. Pt states the growth started to get a little better but hasn't gone away. Pt states she can see the growth in VA. Pt denies using any gtts. Follow Up of CVF The 75 year old female presents for evaluation of Follow Up of (plaquenil) CVF in the right eye and left eye. Patient reports vision stable. Plaquenil The 75 year old female presents for evaluation of Plaquenil Evaluation in right and left eye. Patient was not scheduled for CVF today. Patient denies any vision changes since last visit. Functional Status Date Functional Assessmen t No Information Instructions Date Instruction Additional Infor kaela Impression/Plan - Th e exam and OCT show no significant RPE changes OU. Return in one year for a dilated exam and MAC OCT. Related to Drusen (degenerative) of macula, bilateral Impression/Plan - No Plaquenil toxicity noted in exam or OCT. 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 Discussed the potential of irreversible retinal toxicity secondary to Plaquenil therapy increases with increased cumulative dose. Discussed any pre-existing macular conditions can make monitoring for macular toxicity extremely difficult. Discussed importance of compliance with follow up and need to be seen if any vision change noted. RTC soon with Dr Ontiveros for evaluation regarding potential early toxicity with 10-2 CVF or RTC LESLY if decreased VA or AG change. Related to Other alf (current) drug therapy Impression/Plan - Di scussed Macular drusen findings with patient. Will continue to monitor vision and the patient has been instructed to call with any vision changes. Discussed AREDS II recommendations and studies showing potential slowing of progression. Consult with FMD to make sure there is no contraindication to AREDS II formulation use from their perspective. Pt. given written list of AREDS II formulation. Discussed home Amsler Grid (AG) monitoring QD and demonstrated use in office. Pt. given AG for home monitoring. Pt. instructed to call LESLY if acute VA change or change on AG, as that may indicate conversion to exudative macular degeneration. Related to Drusen (degenerative) of macula, bilateral Impression/Plan - Te sting completed today. Discussed the potential of irreversible retinal toxicity secondary to Plaquenil therapy increases with increased cumulative dose. Discussed any pre-existing macular conditions can make monitoring for macular toxicity extremely difficult. Discussed importance of compliance with follow up and need to be seen if any vision change noted. Return in 1 year for CEE with 5 line OCT, 10-2 CVF, and color VA or LESLY if decreased VA or AG change. 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 Will continue to monitor vision and the patient has been instructed to call with any vision changes. Discussed AREDS II recommendations and studies showing potential slowing of progression. Consult with FMD to make sure there is no contraindication to AREDS II formulation use from their perspective. Pt. given written list of AREDS II formulation. Discussed home Amsler Grid (AG) monitoring QD and demonstrated use in office. Pt. given AG for home monitoring. Pt. instructed to call LESLY if acute VA change or change on AG, as that may indicate conversion to exudative macular degeneration. Related to Drusen (degenerative) of macula, bilateral Impression/Plan - PV D without current retinal detachment or retinal tear. Warning signs of retinal tear (RT) and retinal detachment (RD) discussed with patient. Pt. instructed to contact our office LESLY if loss of vision, any worsening of symptoms, or changes consistent with RT or RD. 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 Impression/Plan - Di scussed reoccurent Chalazion RUL. Re roofed opening with sterile 30Gneedle. Initiate Keflex 500mg 4 times a day for 1 week. RTC in February for routine annual exam for Plaquenil. Related to Chalazion right upper eyelid Follow up - RTC in 6 months for CEE with Dr. Deluca or LESLY if pain, decreased VA, or any worsening of symptoms. Impression/Plan - Dustin temple presents for surgical approach with incision and curettage today for Chalazion Right Upper Lid(see procedure notes). Patient instructed to continue warm compresses with massages 2-3 times daily for a few days. Related to Chalazion right upper eyelid Follow up - as sched uled or sooner if change in condition or vision occurs Impression/Plan - Di scussed findings with patient. Educated patient on recommended surgical excision with and treatment options. Pt elects surgical approach with excision. REC no NSAID x2 weeks and if on any blood thinners D.C 5 days prior. Related to Neoplasm of uncertain behavior of skin Impression/Plan - Di scussed stable findings with patient. No toxicity or change on CVF. Continue to monitor annually with routine testing. 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 Impression/Plan - Di scussed the potential of irreversible retinal toxicity secondary to Plaquenil therapy increases with increased cumulative dose. Discussed importance of compliance with follow up and need to be seen if any vision change noted. Return soon for 10-2 CVF and follow up. 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 The patient elects to proceed OD first then OS Related to Other secondary cataract, bilateral - See Above Related to Rheum atoid arthritis, unspecified - Discussed the pote ntial of irreversible retinal toxicity secondary to Plaquenil therapy increases with increased cumulative dose. Discussed importance of compliance with follow up and need to be seen if any vision change noted. RTC for Yag Cap eval with DR. Craig and a 5-line OCT. VF OD) No progressive change from last CVF. VF OS) No progressive change from last CVF. VF Assessment/Plan: See today's plan for further clinical correlation and recommendations based on test results and other clinical findings.. Related to Other alf (current) drug therapy - Opacified capsule with option for YAG laser capsulotomy. Discussed procedure, risks, benefits and side effects. Patient would like to schedule a consult with Dr. Craig for a Yag Cap eval with a 5-line OCT. Related to Other secondary cataract, bilateral - OCT MAC OD) no sig nificant thinning. OCT MAC OS) no significant thinning. OCT Macula Assessment/Plan: See today's plan for further clinical correlation and recommendations based on test results and other clinical findings.. VF OD) no significant defect. VF OS) no significant defect. VF Assessment/Plan: See today's plan for further clinical correlation and recommendations based on test results and other clinical findings.. Testing completed today. Discussed the potential of irreversible retinal toxicity secondary to Plaquenil therapy increases with increased cumulative dose. Discussed importance of compliance with follow up and need to be seen if any vision change noted. Return in 1 year or LESLY if decreased VA or AG change. Related to Other extermination supervisor (current) drug therapy - Opacified capsule with option for YAG laser capsulotomy. Discussed procedure, risks, benefits and side effects. Patient declines YAG laser capsulotomy at this time. YAG laser can be done PRN in future if patient desires. Related to Other secondary cataract, bilateral - See Above Related to Rheum atoid arthritis, unspecified - VF OS) NO repeatab le defect. VF Assessment/Plan: See today's plan for further clinical correlation and recommendations based on test results and other clinical findings.. Follow up in 1 year with CEE, OCT, 10-2 CVF, and color VA.Discussed the potential of irreversible retinal toxicity secondary to Plaquenil therapy increases with increased cumulative dose. Return in 1 year or LESLY if decreased VA or AG change. 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 Pt. reports head not in position for portion of test. discussed abnormal VF again today, however defect in different area of field so question of reliability. Repeat CVF again OS soon with careful attention to head postitioning in instrument. If defect is repeatable, will recommend D/C plaquenil. Related to Other alf (current) drug therapy - OCT MAC OD) No thi nning. OCT MAC OS) No thinning. VF OD) normal. VF OS) scatt depression. Testing completed today. Discussed the potential of irreversible retinal toxicity secondary to Plaquenil therapy increases with increased cumulative dose. Need for repeat CVF 10-2 OS only and f/u. Related to Other alf (current) drug therapy - OCT MAC OD) No thi nning. OCT MAC OS) No thinning. VF OD) No defect. VF OS) No defect. Testing completed today. Discussed the potential of irreversible retinal toxicity secondary to Plaquenil therapy increases with increased cumulative dose. Return in 1 year or LESLY if decreased VA or AG change. RTC 11 months CEE with CVF10-2, OCT5-line and color va. Related to Other extermination supervisor (current) drug therapy - No signs of inflam mation or other findings from the ophthalmic perspective expected to be contributory regarding patients intermittent symptoms. Discussed ophthalmodynia. Related to Ocular pain, right eye - Need for testing. Discussed the potential of irreversible retinal toxicity secondary to Plaquenil therapy increases with increased cumulative dose. Return soon for OCT, CVF with follow up. Related to Other alf (current) drug therapy Assessments Type Assessment Date No Information Patient Care Teams Name Effective Dates (start - stop) Status Members No Information
--- OUTSIDE RECORDS SUMMARY | 2024-09-26 22:23 | XMS_ITS | Patient Health Record ---
Author Organization [facility] Address [address] [place] [address] Care Team Providers Care Atmospheric Scientist Name Role Phone ALANNA [phone] [facility] Primary Care Provider Unavailable Hugo Alarcon Unavailable [phone] Reason For Referral No Information Medications Medication SIG (Take, Route, Frequency, Duration) Notes Start Date End Date Status Atorvastatin Calcium 40 MG 1 tablet Oral ly Once a day Active Aspir-81 81 MG 1 tablet Orally Once a day Active Fish Oil 1000 MG 1 capsule Orally Onc e a day Active Plaquenil 200 MG 1 tablet with food o r milk Orally Once a day Active Metoprolol Succinate ER 25 MG 1 tablet Orally Once a day Active Zinc 10 MG Orally Active D3 Adult 1000 UNIT 1 tablet Orally Once a day Active Lecithin 1200 MG 1 capsule Orally Onc e a day Active Calcium & Magnesium Carbonates 311-232 MG Orally Active Fiber 600 MG Orally Active HYDROcodone-Acetaminophen 7.5-325 MG 1 tablet as needed Orally every 6 hrs Active Vitamin E 100 UNIT 1 capsule Orally Onc e a day Active Cinnamon 500 MG Orally Acti ve Social History Tobacco Use: Social History Observation Description Date Details (start date - stop date) Never Smoker NA - NA Alcohol screen Question Answer Notes Did you have a drink containing alcohol in the p ast year? No Points 0 Interpretation Negative Tobacco Use: Question Answer Notes Are you a: Never Smoker Problems Problem Type SNOMED Code ICD Code Onset Dates Problem Status W/U Status Risk Notes Problem [id number] Pain of both sacroiliac joints (M53.3) Active confirmed Problem 682958800 Hx of laminectomy (Z98.890) Active confirmed Plan Of Treatment No Information Insurance Providers Payer Name Payer Address Payer Phone Subscriber Number Group Number Insured Name Patient Relationship to Insured Coverage Start Date Coverage End Date MEDICARE PART B [address] [phone] [id number] SINTIA GUEVARA Self - [place] [address] [id number] PLAN F SINTIA GUEVARA Self - patient is the insured Medical (General) History Medical History History ICD Code HTN Surgical History Surgery Date(Month/Year) HYSTERECTOMY 1974 LEFT SHOULDER SURGERY 1981 RT SHOULDER SURGERY 1983 LEFT/RT TOE SURGERY CARPAL TUNNEL LEFT HAND 2002 BIG TOE RIGHT FOOT 2003 BACK SURGERY 2008 EYE SURGERY ON BOTH EYES/CATARACTS 2013 BACK SURGERY 07/2016 BASIL CELL-SCALP 02/2017 Hospitalization History Reason Date(Month/Year) NONE IN THE PAST 6 MONTHS 02/2017
--- OUTSIDE RECORDS SUMMARY | 2024-09-26 22:23 | XMS_ITS | Data Portability ---
Author Organization [facility], [facility] Address [address] [place] [address] Assessment No assessment recorded. Plan of Treatment Reminders Order Date Submit Date Provider Last Modified By Organization Details Last Modified Time Details Appointments None record ed. Lab None record ed. Referral None record ed. Procedures None record ed. Surgeries None record ed. Imaging None record ed. Medication Orders None record ed. Patient TargetsNo targets recorded. Patient InstructionsNo instructions recorded. Reason for Referral None Reported. Problems Name Problem SNOMED Code Status Onset Date Resolution Date Notes Provider Name and Address Organization Details Recorded Time Lumbosacral radiculitis 85275303 Active Asha Janneth [facility] 8 17:36:13 Chronic pain syndrome 823011277 Active Asha Janneth [facility] 8 17:36:32 Low back pain 579164382 Active Asha Janneth [facility] 8 17:36:56 Ischemic neuropathy 603216303 Completed 04/13/2018 Juli Sharpe [facility] 9 13:02:40 Hyperlipide mya 13139977 Active Asha Janneth [facility] 8 17:38:38 Obesity 017852333 Active Asha Janneth [facility] 8 17:39:01 Insomnia 251812001 Active Asha Janneth [facility] 8 17:39:23 Rheumatoid arthritis 71342448 Active Asha Janneth [facility] 8 17:39:54 Carpal tunnel syndrome 10336699 Active [facility] 8 17:40:25 Essential hypertensio n 10436021 Active [facility] 8 17:40:49 Neuropathy 673078429 Active 2018 [facility] 9 13:02:48 Problem Notes None recorded. Procedures Surgical History Date Name Laterality Status Provider Name and Address Organization Details Recorded Time 06/09/19 12 Back Surgery completed [facility] 04/13/2018 13:05:41 04/10/19 09 Back Surgery completed [facility] 04/13/2018 13:04:11 04/10/18 80 Carpal tunnel surgery completed [facility] 04/13/2018 13:04:47 04/10/18 70 hysterectomy completed [facility] 04/13/2018 13:04:26 Unlisted procedure shoulder completed [facility] 04/13/2018 13:05:03 Unlisted px foot/toes completed [facility] 04/13/2018 13:05:18 Imaging Results None recorded. Procedure Notes None recorded. Medical Equipment None Reported. Allergies No known drug allergies Medications Name Sig Start Date Stop Date Status Note LastModified by Organization Details LastModified Time Plaquenil 200 mg tablet Take 1 tablet every day by oral route. active Not Available Not Available No t Available simvastatin 40 mg tablet Take 1 tablet every day by oral route. active Not Available Not Available No t Available Neurontin 100 mg capsule Take 2 capsules every day by oral route. 02/28 completed Not Available Not Available Not Available Accupril 10 mg tablet Take 1 tablet every day by oral route. 2018 active Not Available Not Available Not Avai lable metoprolol succinate ER 25 mg tablet,exte nded release 24 hr TAKE 1 TABLET BY MOUTH EVERY DAY active Not Available Not Available No t Available [place] 5 mg-325 mg tablet Take 1 tablet every day by oral route. 03/05 completed Not Available Not Available Not Available metoprolol succ 25 mg-hydrochl orothiazide 12.5 mg tablet,ext. rel 24 hr Take 1 tablet every day by oral route. 03/05 completed Not Available Not Available Not Available Vitals Date Recorded Body weight Oxygen saturation Oxygen saturation in Arterial blood by Pulse oximetry Heart rate Respiratory rate Systolic blood pressure Diastolic blood pressure Provider Name and Address Organization Details Last Updated DateTime 9 08753.2 2 g 97 % 97 % 88 /min 16 /min 112 mm[Hg] 60 mm[Hg] Cecilia Randolph [facility] 9 17:21:22 Social History Question Answer Notes LastModified by Organizat ion Details LastModified Time Tobacco Smoking Status [facility] 13:03:56 What Was The Date Of Your Most Recent Tobacco Screening? 04/13/2018 Information n ot available 11/02/2018 Sex: Unknown Functional Status None recorded. Mental Status None recorded. Family History Relationship Description Onset Age of this Age Resolved Age Notes LastModified by Organization Details LastModified Time Father Heart disease [facility] Not available 04/13/2018 13:03:26 Mother Malignant tumor of pancreas [facility] Not available 04/13/2018 13:03:52 Medical History Condition Response Coronary Artery Disease N Other N Gout N Kidney Stones N Blood Diseases N Hyperthyroidism N Breast Cancer N Blood Transfusion N Depression N Hypothyroidism N Lung Disease N COPD N Developmental or Behavioral Disorders N Defects or Inherited Disease N Breast Problem N Difficulty Swallowing N Anesthesia Complications N Meniere's disease N Anxiety Disorder N Muscle, Joint, or Bone Problems N Vision or Eye Problems N Arthritis N Polyps N Infertility N Cancer N Varicosities N Stroke N Endometriosis N Bladder or Kidney Problems N High Cholesterol N Liver Disease N Headaches N Fibromyalgia N Kidney Disease N Allergies/Hayfever N Heart Problems N Ear or Hearing Problems N Hospitalizations N Thyroid Problems N GI Problems N ADD/ADHD N Skin Problems N Eating Disorder N Anemia N Constipation N Mental Illness N Ovarian Cancer N Diabetes N Bedwetting N Seizures/Epilepsy N Tuberculosis N Eczema N Diverticulitis N Abuse/Domestic Violence N Asthma N Reflux/GERD N Hepatitis N Heart Disease N Pulmonary Embolism N Pre-Eclampsia N Hypertension N Chronic Ear Infections N Osteoporosis N Chicken Pox N Autism Spectrum Disorder (ASD) N Thrombophilias N Gynecological History Statement/Question Response Last Eye Exam 07/28/2017 Obstetrics History GPAL:G 0 P 0 0 0 0 Past Encounters Encounter ID Performer Location Encounter Start Date Encounter Closed Date Diagnosis/Indication Diagnosis SNOMED-CT Code Diagnosis ICD10 Code Diagnosis Note [id number] Mark Roberts MD [facility] [address] [place] [address] 03/05/2018 13:30:32 03/05/2018 15:21:46 [id number] Mark Roberts MD [facility] [address] [place] [address] 04/16/2018 16:57:34 04/16/2018 19:14:12 Raynaud's phenomenon 625044131 I73.00 pt will discuss with her rheumatolo gist. Consider amlodipine if cond worsens. Health Concerns Section Related Observation LastModified by Organization Detai ls LastModified Time None Recorded Concern Status LastModified by Organization Details LastModified Time None Recorded Advance Directives Directive None Recorded Payers Insurance Date Sequence Insurance Name Policy Number Policy Cárdenas Covered Member ID Cárdenas Member ID Guarantor Name 04/13/2018 1 [place] [employer] - [facility] Belen Pineda [id number] Belen Pineda 04/13/2018 2 [employer] (MEDICARE SUPPLEMENT) Belen Pineda [id number] Belen Pineda Notes Date Note Type Note Provider Name and Address Organization Details Recorded Time 04/16/2018 text/html Went to ER 03/29 with blue hands. Dx with Raynauds, B UE arterial US was normal. Pt has been to several dermatologists for finger cracking and bleeding. Denies H/O ulceration. Has had 2 episodes of hands turning blue. Denies pain. Never a smoker. Manuel armendariz, [facility] 04/16/2018 17:39:02 OBGyn Episode No OBEpisode recorded.
--- OUTSIDE RECORDS SUMMARY | 2024-09-26 22:23 | XMS_ITS | Data Portability ---
Author Organization [place] [facility] [place], OFFICE Address [address] [facility] [address] [address] [address] [place] [address] Care Team Providers Care Instrument Mechanic Name Role Phone DARLING MONDRAGON Referring Provider Assessment Encounter Date Assessment Date Assessment LastModified by Organization Details LastModified Time 01/20/2016 01/20/2016 01/20/2016 70 year old female comes in today for back pain. Pt c/o B/L LBP that radiates to B/L legs, Rt worse than Lt, to the ankle. She has the pain for many years, and it is getting worse over the past couple of years. She describes constant ache. Ice and pain medication helps the pain. Walking and lifting make the pain worse. She is taking hydrocodone 5-325mg TID PRN and gabapentin 200mg TID which help the pain. She has tried physical therapy which did not help the pain. She had injections prior to L2-5 instrumented fusion in [address]with Dr. Sheppard in [place] but none since surgery. CT Lspine done 12/29/15 and MRI Lspine done 10/13/15. Following her surgery, her pain improved, but she does have episodes of low back and bilateral leg pain. MRI scan done 10/13/15 shows L2 to L5 pedicle screw construct in good position with solid posterolateral arthrodesis. There appears to be a decompression from L2 to 5 as well. At L5/S1, there is marked spondylosis and disc space narrowing resulting in moderately severe klaus foraminal stenosis. Her neurologic examination is benign. Options were discussed with the pt. She is managing on her analgesics at this time. She declines therapy. Surgery would be an option. She would require a decompresssion and aninstrumented posterior and interbody L5/S1 fusion with likely sacral fixation. The risks and benefits of the surgery were discussed with the pt. At this point in time, she would like to continue to manage with medications. Follow up with us should her pain worsen. [email or web address] Not available 01/20/2016 18:17:19 03/08/2016 03/08/2016 01/20/2016 70 year old female comes in today for back pain. Pt c/o B/L LBP that radiates to B/L legs, Rt worse than Lt, to the ankle. She has the pain for many years, and it is getting worse over the past couple of years. She describes constant ache. Ice and pain medication helps the pain. Walking and lifting make the pain worse. She is taking hydrocodone 5-325mg TID PRN and gabapentin 200mg TID which help the pain. She has tried physical therapy which did not help the pain. She had injections prior to L2-5 instrumented fusion in [address]with Dr. Sheppard in [place] but none since surgery. CT Lspine done 12/29/15 and MRI Lspine done 10/13/15. Following her surgery, her pain improved, but she does have episodes of low back and bilateral leg pain. MRI scan done 10/13/15 shows L2 to L5 pedicle screw construct in good position with solid posterolateral arthrodesis. There appears to be a decompression from L2 to 5 as well. At L5/S1, there is marked spondylosis and disc space narrowing resulting in moderately severe klaus foraminal stenosis. Her neurologic examination is benign. Options were discussed with the pt. She is managing on her analgesics at this time. She declines therapy. Surgery would be an option. She would require a decompresssion and aninstrumented posterior and interbody L5/S1 fusion with likely sacral fixation. The risks and benefits of the surgery were discussed with the pt. At this point in time, she would like to continue to manage with medications. Follow up with us should her pain worsen. 03/08/2016 Pt comes in today for a low back pain. Pt c/`o B/L LBP that radiates to B/L legs, Rt worse than Lt, to the ankle. She has the pain for many years, and it is getting worse over the past couple of years. She describes constant ache. Ice and pain medication helps the pain. Walking and lifting make the pain worse. She is taking hydrocodone 5-325mg TID PRN and gabapentin 200mg TID which help the pain. She has tried physical therapy which did not help the pain. She had injections prior to L2-5 instrumented fusion [place] [address] Sheppard in [place] but none since surgery. CT Lspine done 12/29/15 and MRI Lspine done 10/13/15. Pt with adjacent level disease and unfortunately severe facet spurs into neural foraminal L5/S1 Leading to bilateral facet hypertrophy. Pt with fusion L2-L5 and L1/L2 also severe facet hypertrophy and pressure on the fecets and fusion mass. I discussed options of stimulator or L1-L2 lumbar fusion to L5/S1 ALIF and lumbar fusion, vs MIS TLIF. Pt will discuss with family. COMPARISON: Compared to MRI dated 10/13/2015. FINDINGS: Shows spinal instrumentation, pedicular screw and yarelis fixation spanning L2 through L5 without acute compression fracture. Grade I listhesis L4-5. Moderate to severe left neuroforaminal stenosis secondary to facet disease at L1-2. L2 pedicular screws appear well aligned without definite stenosis. L3 pedicular screw is also well aligned without evidence of significant stenosis or hardware fracture. L4 posterior decompression, pedicular screws appear intact. L5 moderate facet disease, posterior decompression. Pedicular screws also appear intact. IMPRESSION: 1. Pedicular screw and yarelis fixation spans L2 through L5 without acute compression fracture. Hardware appears intact. Grade I listhesis L4-5. 2. Moderate to severe left neuroforaminal stenosis secondary to facet disease at L1-2. 3. Moderate to severe bilateral neuroforaminal stenosis at L5-S1, left greater than right. [email or web address] Not available 03/08/2016 18:33:46 Plan of Treatment Reminders Order Date Submit Date Provider Last Modified By Organization Details Last Modified Time Details Appointments None record ed. Lab None record ed. Referral None record ed. Procedures None record ed. Surgeries None record ed. Imaging None record ed. Medication Orders None record ed. Patient TargetsNo targets recorded. Patient Instructions Encounter Date Encounter Id Patient Instructions Last Modified By Organization Details Last Modified Time 01/20/2016 [id number] low back arthritis: exercises [email or web address] Not available 01/20/2016 18:19:05 back care and preventing injuries: care instructions Not available 01/21/2016 18:34:33 getting back to normal after low back pain: care instructions Not available 01/21/2016 18:34:33 learning about relief for back pain Not available 01/21/2016 18:34:33 Reason for Referral None Reported. Results Created Date Observation Date Name Description Value Unit Range Abnormal Flag Note LastModifiedBy Organization Detail LastModifiedTime 01/18/20 16 12/29/2015 CT, lumba r spine , w/o contr ast No observ ation record ed. [email or web address] Not Available 2015 17:32:02 01/18/20 16 10/13/2015 MRI, lumba r spine , w/o contr ast No observ ation record ed. [email or web address] Not Available 2015 17:32:27 Result Notes None recorded. Problems Name Problem SNOMED Code Status Onset Date Resolution Date Notes Provider Name and Address Organization Details Recorded Time Lumbosacral spondylosis without myelopathy [id number] Soha Gruber MD [address] [address], [place], [address] , [facility], [facility] 18:34:21 Degeneration of lumbosacral intervertebral disc 91335991 Active Miguel Gruber MD [address] [address], [place], [address] , [facility], [facility] 18:34:21 Low back pain [id number] Soha Gruber MD [address] [place] [address], [place], [address] , [facility], [facility] 18:34:21 Lumbar post-laminecto my syndrome [id number] Soha Gruber MD [address] [address], [place], [address], [facility], [facility] 18:34:21 Lumbosacral radiculitis 76999894 Soha Gruber MD [address], [place], [address], [facility] [place], [facility] 18:34:21 Problem Notes None recorded. Procedures Surgical History Date Name Laterality Status Provider Name and Address Organization Details Recorded Time 04/10/19 14 Cataract Surgery completed [facility] [place], [facility] 01/20/2016 17:03:25 09/07/19 09 Spinal Surgery completed [facility] [place], [facility] 01/20/2016 17:24:18 04/10/18 84 Shoulder Surgery completed [facility] [place], [facility] 01/20/2016 17:03:25 04/10/18 82 Shoulder Surgery completed [facility] [place], [facility] 01/20/2016 17:03:25 04/10/18 74 Hysterectomy completed [facility] [place], [facility] 01/20/2016 17:03:25 Other completed [facility] 01/20/2016 17:03:25 Imaging Results None recorded. Procedure Notes None recorded. Medical Equipment None Reported. Allergies No known drug allergies Medications Name Sig Start Date Stop Date Status Note LastModified by Organization Details LastModified Time atorvastatin 40 mg tablet active Not Available Not Available No t Available trazodone 50 mg tablet active Not Available Not Available Not Available hydrocodone 5 mg-acetaminophe n 325 mg tablet active Not Available Not Availa ble Not Available meloxicam 7.5 mg tablet active Not Available Not Available No t Available quinapril 10 mg tablet active Not Available Not Available Not Available magnesium 250 mg tablet Take by oral route. active Not Available Not Available No t Available gabapentin 100 mg capsule active Not Available Not Available N ot Available metoprolol succinate ER 25 mg tablet,extended release 24 hr active Not Available Not Availabl e Not Available Aspir-81 mg tablet,delayed release Take 2 tablets every day by oral route. active Not Available Not Available No t Available hydroxychloroqu ine 200 mg tablet active Not Available Not Available Not Available methylprednisol one 4 mg tablets in a dose pack active Not Available Not Available No t Available Calcium 600 2 tablets qd active Not Available Not Available No t Available gabapentin 200 mg TID active Not Available Not Available No t Available Vitals Date Recorded Body weight Body temperature Body height Body mass index (BMI) Systolic blood pressure Diastolic blood pressure Provider Name and Address Organization Details Last Updated DateTime 6 22588.5 45290 g 98.2 [degF] 154.94 cm 28.1 kg/m2 149 mm[Hg] 77 mm[Hg] Leon Neumann [facility] [place], [facility] 6 17:20:13 Date Recorded Heart rate Systolic blood pressure Diastolic blood pressure Provider Name and Address Organization Details Last Updated DateTime 03/08/2016 78 /min 147 mm[Hg] 89 mm[Hg] Miguel Gruber MD [address] [facility] [address], [place], [address], [facility] [place], [facility] 03/08/2016 17:57:44 Date Recorded Body mass index (BMI) Body height Body weight Provider Name and Address Organization Details Last Updated DateTime 03/08/2016 28 kg/m2 154.94 cm 07731.49321 g aida huff [facility] [place], [facility] 03/08/2016 16:58:33 Social History Question Answer Notes LastModified by Organizat ion Details LastModified Time Tobacco Smoking Status Never Smoker Not Available [employer] 02/04/2020 03:20:54 Are You Blind Or Do You Have Difficulty Seeing? No [id number] Information not available 02/04/2020 What Is Your Level Of Caffeine Consumption? None [id number] Information not available 02/04/2020 Are You Deaf Or Do You Have Serious Difficulty Hearing? No [id number] Information not available 02/04/2020 Which Illicit Or Recreational Drugs Have You Used? Denies [id number] Information not available 02/04/2020 Marital Status [id number] Informati on not available 01/20/2016 Do You Have Difficulty Walking Or Climbing Stairs? Yes [id number] Information not available 02/04/2020 Sex: Unknown Functional Status Question Answer Note LastModified by Organization D etails LastModified Time What is your level of alcohol consumption? None [id number] Information not available 02/04/2020 Do you have difficulty doing errands alone? No [id number] Information not available 02/04/2020 What is your occupation? retired [id number] Information not available 02/04/2020 Do you have difficulty dressing or bathing? No [id number] Information not available 02/04/2020 Mental Status Question Answer Note LastModified by Organization D etails LastModified Time Do you have difficulty concentrating, remembering or making decisions? No [id number] Information no t available 02/04/2020 Family History Relationship Description Onset Age of this Age Resolved Age Notes LastModified by Organization Details LastModified Time Mother Heart disease chartley Not available 2015 17:04:08 Mother Benign neoplastic disease chartley Not available 2015 17:04:08 Father Heart disease chartley Not available 2015 17:04:08 Medical History Condition Response Coronary Artery Disease N Heart Problems N Hyperthyroidism N Head Trauma/Injury N Migraines N Thyroid Problems N Hypothyroidism N Depression N COPD N Multiple Sclerosis N Heart Attack ([place]) N Ulcers N Anxiety Disorder N Diabetes N Bleeding Disorder N Arthritis Y Seizures/Epilepsy N Cancer N Back Problems N Stroke N Asthma N Neck Injury N Lupus N Sleep Disorder Y Hepatitis N Aneurysm N Liver Disease N Headaches N Fibromyalgia N Hypertension N Osteoporosis N Kidney Disease N Gynecological HistoryNo gynecological history recorded. Obstetrics History GPAL:G 0 P 0 0 0 0 Past Encounters Encounter ID Performer Location Encounter Start Date Encounter Closed Date Diagnosis/Indication Diagnosis SNOMED-CT Code Diagnosis ICD10 Code Diagnosis Note [id number] [facility] [address] [place] [address] 01/20/2016 16:53:38 01/20/2016 18:19:25 Lumbosacral spondylosis without myelopathy 02382585 M47.817 Degenerati on of lumbosacral intervertebral disc 27657289 M51.37 Low back pain 037248030 M54.5 Lumbar post-laminectomy syndrome 089300091 M96.1 Lumbosacra l radiculitis 01944869 M54.17 [id number] Miguel Gruber MD [address] [place] [address] 03/08/2016 16:32:40 03/08/2016 18:31:42 Lumbosacral spondylosis without myelopathy 75642026 M47.817 Degenerati on of lumbosacral intervertebral disc 87860249 M51.37 Low back pain 616704229 M54.5 Lumbosacra l radiculitis 43748991 M54.17 Lumbar post-laminectomy syndrome 733924824 M96.1 Health Concerns Section Related Observation LastModified by Organization Detai ls LastModified Time None Recorded Concern Status LastModified by Organization Details LastModified Time None Recorded Advance Directives Directive None Recorded Payers Insurance Date Sequence Insurance Name Policy Number Policy Cárdenas Covered Member ID Cárdenas Member ID Guarantor Name 03/05/2016 1 [place] Belen Pineda [id number] Belen Pineda 03/05/2016 2 [facility] (MEDICARE SUPPLEMENT) Belen Pineda [id number] Belen Pineda Notes Date Note Type Note Provider Name and Address Organization Details Recorded Time 01/20/2016 text/html Back PainReporte d bypatient.Location :pain radiating to the buttocks;pain radiating to the legs;pain radiating to the ankle Describe your painconstant ache Rate your pain levelworsening;gunjan n level 9/10;severe (8-10) How long is your painacute; chronic When did your pain startyears ago How did your pain startprior back problems What makes your pain BETTERice; pain medication What makes your pain WORSElifting Associated Symptoms:no fever; no weak limbs; no incontinence; no shortness of breath Yobany Ibarra [address] [place] [address] [address], [place], [address], [facility], [facility] 01/20/2016 18:19:07 03/08/2016 text/html Back PainReporte d bypatient.Location :pain radiating to the buttocks;pain radiating to the legs;pain radiating to the ankle Describe your painconstant ache Rate your pain levelworsening;gunjan n level 9/10;severe (8-10) How long is your painacute; chronic When did your pain startyears ago How did your pain startprior back problems What makes your pain BETTERice; pain medication What makes your pain WORSElifting Associated Symptoms:no fever; no weak limbs; no incontinence; no shortness of breath Miguel Gruber MD [address] [facility] [address], [place], [address], [facility], [facility] 03/09/2016 14:18:20 OBGyn Episode No OBEpisode recorded.
--- OUTSIDE RECORDS SUMMARY | 2024-09-26 22:23 | XMS_ITS | Continuity of Care Document ---
Author Organization [facility] Address [address] [place] [address] Phone Care Team Providers Care Corporate Human Resources Manager Name Role Phone Joshua Wade Unavailable Unavailable Procedures Procedure Date Office/outpatient Visit, [facility] Office/outpatient Visit, [facility] Script Printed/Phoned Pt Requ Or Pharm N ot Availab Advance Directives Directive Yes / No Effective Date File Name No Information Encounters Encounter Description Practice Location Reason(s) For Visit Diagnoses Date Provider Providers Copied on Encounter Office/outpat ient Visit, [facility], [address] [place] [address] [address], [place], [place], [id number], tel:[phone] [facility] No Information August- 6-201 0 Krishnasamy Joshua. [facility] [address], [facility], [place]. tel:[phone] Office/outpat ient Visit, [facility], [address] [place] [address] [address], [place], [place], [id number], tel:[phone] [facility] No Information August- 0-200 9 Krishnasamy Joshua. [address] [address], [place], [place], [facility], [place]. tel:[phone] Family History Family Member Type Diagnosis Age At Onset No Information Payers Payer name Insurance type Covered alliance party ID Authoriza tion(s) Medicare [facility] [id number] [facility] [id number] Social History Type Description Quantity Date Captured Comments Sex Female Smoking Status No Information Chief Complaint And Reason For Visit No Information Reason For Referral Reason For Referral No Information History Of Present Illness Encounter Date Complaint History Of Prese nt Illness No Information Functional Status Date Functional Assessmen t No Information Instructions Date Instruction Additional Infor mation No Information Assessments Type Assessment Date No Information Patient Care Teams Name Effective Dates (start - stop) Status Members No Information
--- OUTSIDE RECORDS SUMMARY | 2024-09-26 22:23 | XMS_ITS | Data Portability ---
Author Organization [place] [facility] [employer], auto[employer] Address [address] [place] [address] Care Team Providers Care Staff Interpreter Name Role Phone ARMANDO MISTY Referring Provider Assessment Encounter Date Assessment Date Assessment LastModified by Organization Details LastModified Time 07/23/2012 07/23/2012 1. Myalgia: Resolved. Consistent with PMR. See #2 below. 2. Polymyalgia rheumatica: Does not appear to be active at the present time.Inflammatory markers from early part of May were normal. It is unclear if the patient was on prednisone at this time or not. Patient does not have any signs or symptoms of GCA or vascular claudication. Most recent inflammatory markers normal prednisone taper as described 3. Rheumatoid arthritis: Does not appear to be active at this time.Patient with a history of seropositive rheumatoid arthritis which has been treated with gold, NSAIDs and hydroxychloroquine. Patient does not have any active evidence of synovitis. No signs or symptoms of inflammatory arthritis at the present time. Inflammatory markers normal. Weakly positive rheumatoid factor with normal anti-CCP antibody. X-rays of the hands have not been done. Patient currently on prednisone for PMR and therefore no need for any further antirheumatic medications. 4. Long-term steroid use: Discussed the fact the patient will need to be on long-term steroids. Patient has not had a bone density scan for a while. Discussed side effect profile of prednisone. Vitamin D level is within normal limits. Discussed with patient that she should get a bone density scan done in the future. 5. Medication adverse reaction: Patient had been on hydroxychloroquine in the past for rheumatoid arthritis however this caused loss of color vision and this was discontinued. 6. Back pain: This is chronic. Mechanical in nature with possible radicular symptoms. History of spinal surgery with hardware. Patient will need to be seen by orthopedic spinal surgery or near surgery in the future. Patient is not requiring Vicodin on a fairly regular basis for back pain. Prescription for Vicodin 5/325, 60 pills given at this time 7. Paresthesia: Affecting right lower extremity. Could be coming from the level of the spine. Patient history of back surgery. Nerve conduction study can be done however patient does have a history of back surgery and therefore will likely benefit from neurosurgery/orthope dic spinal surgery review prior to order any further testing. Discussed potentially starting Neurontin which the patient does not want to at this time. Disposition: Very pleasant 67-year-old female referred here for evaluation of possible rheumatoid arthritis and polymyalgia rheumatica. Patient signs and symptoms are suggestive of PMR. Successfully treated with prednisone. Continue taper 1 mg every 2 weeks until maintained on 10 mg. Signs or symptoms of active PMR or GCA. Rheumatoid arthritis/inflammato ry arthritis is not active. Return to office in 3-4 months for reevaluation. Greater than 25 minutes spent, greater than 50% of the office visit was dedicated to counseling, reviewing tests & labs, treatment options and follow up plans. Addressed patient's questions and/ or concerns to his/ her satisfaction [email or web address] Not available 07/25/2012 15:39:53 02/04/2013 02/04/2013 1. Myalgia: Resolved. Consistent with PMR. See #2 below. 2. Polymyalgia rheumatica: Does not appear to be active at the present time. Inflammatory markers from early part of May were normal. It is unclear if the patient was on prednisone at this time or not. Patient does not have any signs or symptoms of GCA or vascular claudication. Accidental decrease her prednisone from 10 mg to 2 mg without any recurrence of symptoms. Continue current dose since the patient has been on this for the last 4-5 weeks 3. Rheumatoid arthritis: Does not appear to be active at this time. Patient with a history of seropositive rheumatoid arthritis which has been treated with gold, NSAIDs and hydroxychloroquine. Patient does not have any active evidence of synovitis. No signs or symptoms of inflammatory arthritis at the present time. Inflammatory markers normal. Weakly positive rheumatoid factor with normal anti-CCP antibody. X-rays of the hands have not been done. Repeat serologic analysis reordered. 4. Long-term steroid use: Discussed the fact the patient will need to be on long-term steroids. Patient has not had a bone density scan for a while. Discussed side effect profile of prednisone. Vitamin D level is within normal limits. Discussed with patient that she should get a bone density scan done in the future. 5. Medication adverse reaction: Patient had been on hydroxychloroquine in the past for rheumatoid arthritis however this caused loss of color vision and this was discontinued. 6. Paresthesia: Stable. Affecting right lower extremity. Could be coming from the level of the spine. Patient history of back surgery. Nerve conduction study can be done however patient does have a history of back surgery and therefore will likely benefit from neurosurgery/orthope dic spinal surgery review prior to order any further testing. Discussed potentially starting Neurontin which the patient does not want to at this time. Disposition: Very pleasant 67-year-old female referred here for evaluation of possible rheumatoid arthritis and polymyalgia rheumatica. Patient signs and symptoms are suggestive of PMR. Successfully treated with prednisone. Patient has accidentally decreased the prednisone from 10 mg to 2 mg without any changes in her symptoms. Blood work ordered. RTO 6 weeks. [email or web address] Not available 02/04/2013 14:05:50 03/14/2013 03/14/2013 1. Myalgia: Resolved. Consistent with PMR. See #2 below. 2. Polymyalgia rheumatica: In remission. Inflammatory markers from early part of May were normal. It is unclear if the patient was on prednisone at this time or not. Patient does not have any signs or symptoms of GCA or vascular claudication. Patient is completely off of prednisone. Will monitor. 3. Rheumatoid arthritis: Does not appear to be active at this time. Patient with a history of seropositive rheumatoid arthritis which has been treated with gold, NSAIDs and hydroxychloroquine. Patient does not have any active evidence of synovitis. No signs or symptoms of inflammatory arthritis at the present time. Inflammatory markers normal. Weakly positive rheumatoid factor with normal anti-CCP antibody. Repeat serology with weakly positive rheumatoid factor and normal anti-CCP antibody again. 4. Long-term steroid use: Finally off of prednisone. Patient has not had a bone density scan for a while. Discussed side effect profile of prednisone. Discussed with patient that she should get a bone density scan done in the future. 5. Medication adverse reaction: Patient had been on hydroxychloroquine in the past for rheumatoid arthritis however this caused loss of color vision and this was discontinued. 6. Paresthesia: Stable. Affecting right lower extremity. Could be coming from the level of the spine. Patient history of back surgery. Nerve conduction study can be done however patient does have a history of back surgery and therefore will likely benefit from neurosurgery/orthope dic spinal surgery review prior to order any further testing. Discussed potentially starting Neurontin which the patient does not want to at this time. Disposition: Very pleasant 67-year-old female referred here for evaluation of possible rheumatoid arthritis and polymyalgia rheumatica. Patient signs and symptoms are suggestive of PMR. Successfully treated with prednisone. Completely off of prednisone. Cockup wrist splint for hand paresthesia. Diabetic foot cream. RTO 3 months. Mild elevation in CPK. [email or web address] Not available 03/14/2013 12:39:09 04/16/2013 04/16/2013 1. Myalgia: Resolved. Consistent with PMR. See #2 below. 2. Polymyalgia rheumatica: In remission. Inflammatory markers from early part of May were normal. It is unclear if the patient was on prednisone at this time or not. Patient does not have any signs or symptoms of GCA or vascular claudication. Patient is completely off of prednisone. 3. Rheumatoid arthritis: Does not appear to be active at this time. No objective evidence of synovitis. Patient with a history of seropositive rheumatoid arthritis which has been treated with gold, NSAIDs and hydroxychloroquine. Patient does not have any active evidence of synovitis. No signs or symptoms of inflammatory arthritis at the present time. Inflammatory markers normal. Weakly positive rheumatoid factor with normal anti-CCP antibody. Repeat serology with weakly positive rheumatoid factor and normal anti-CCP antibody again. 4. Long-term steroid use: Off of prednisone. Patient has not had a bone density scan for a while. Discussed side effect profile of prednisone. Discussed with patient that she should get a bone density scan done in the future. 5. Medication adverse reaction: Patient had been on hydroxychloroquine in the past for rheumatoid arthritis however this caused loss of color vision and this was discontinued. Methotrexate has caused hair loss. 6. Paresthesia: Stable. Affecting right lower extremity. Could be coming from the level of the spine. Patient history of back surgery. Nerve conduction study can be done however patient does have a history of back surgery and therefore will likely benefit from neurosurgery/orthope dic spinal surgery review prior to order any further testing. Discussed potentially starting Neurontin which the patient does not want to at this time. Patient is not sure if the cockup wrist splint is working. Offered nerve conduction study which the patient deferred on. 7. History of bleeding ulcer: Patient with a history of probable gastric ulcer which has bled requiring 11 pints of blood. Patient is using Aleve. I have advised the patient to discontinue this. Patient would like to continue using an NSAID. Arthrotec prescribed. Patient understands that she is at higher risk for bleeding. Patient assumes all responsibility. Disposition: Very pleasant 67-year-old female referred here for evaluation of possible rheumatoid arthritis and polymyalgia rheumatica. Patient signs and symptoms are suggestive of PMR. Successfully treated with prednisone. Completely off of prednisone. Arthrotec started. If not covered can consider tramadol. RTO 1 month. [email or web address] Not available 04/16/2013 14:02:52 05/21/2013 05/21/2013 1. Myalgia: Resolved. Consistent with PMR. See #2 below. 2. Polymyalgia rheumatica: In remission. Inflammatory markers from early part of May 2013 were normal. It is unclear if the patient was on prednisone at this time or not. Patient does not have any signs or symptoms of GCA or vascular claudication. Patient is completely off of prednisone. 3. Rheumatoid arthritis: Does not appear to be active at this time. No objective evidence of synovitis. Patient with a history of seropositive rheumatoid arthritis which has been treated with gold, NSAIDs and hydroxychloroquine. Patient does not have any active evidence of synovitis. No signs or symptoms of inflammatory arthritis at the present time. Inflammatory markers normal. Weakly positive rheumatoid factor with normal anti-CCP antibody. Repeat serology with weakly positive rheumatoid factor and normal anti-CCP antibody again. 4. Long-term steroid use: Off of prednisone. Patient has not had a bone density scan for a while. Advised patient to get a bone density scan. 5. Medication adverse reaction: Patient had been on hydroxychloroquine in the past for rheumatoid arthritis however this caused loss of color vision and this was discontinued. Methotrexate has caused hair loss. 6. Paresthesia: Stable. Affecting right lower extremity. Could be coming from the level of the spine. Patient history of back surgery. Nerve conduction study can be done however patient does have a history of back surgery and therefore will likely benefit from neurosurgery/orthope dic spinal surgery review prior to order any further testing. Discussed potentially starting Neurontin which the patient does not want to at this time. Patient is not sure if the cockup wrist splint is working. Offered nerve conduction study which the patient deferred on. 7. History of bleeding ulcer: Patient with a history of probable gastric ulcer which has bled requiring 11 pints of blood. Patient is using Aleve. I have advised the patient to discontinue this. Patient would like to continue using an NSAID. Arthrotec prescribed. Patient understands that she is at higher risk for bleeding. Patient assumes all responsibility. Patient given tramadol to see if this will help instead of the Arthrotec due to diarrhea. 8. Shoulder pain: Left shoulder pain. Patient with history of rotator cuff surgery. Most consistent with frozen shoulder. Patient can consider intra-articular cortisone injection to see if this will help. Disposition: Very pleasant 67-year-old female referred here for evaluation of possible rheumatoid arthritis and polymyalgia rheumatica. Patient signs and symptoms are suggestive of PMR. Successfully treated with prednisone. Completely off of prednisone. Arthrotec is extensive and causes diarrhea. Tramadol trial. RTO 3 months. [email or web address] Not available 05/21/2013 13:20:15 Plan of Treatment Reminders Order Date Submit Date Provider Last Modified By Organization Details Last Modified Time Details Appointments None recorded . Lab C-reacti ve protein (CRP) 2012 [email or web address] Not available 4 18:19:14 CPK 2012 Not available 4 18:19:14 ESR, westergr en 2012 [email or web address] Not available 4 18:19:14 vitamin B12 & folate 2012 013 GELY Not available 3 11:18:20 C-reacti ve protein (CRP) 2012 013 GELY Not available 3 10:52:19 ESR, westergr en 2012 013 GELY Not available 3 10:52:18 CPK 2012 013 [email or web address] Not available 4 18:19:13 cyclic citrulli nated peptide ccp Ab igg 2012 Not available 4 18:19:13 comprehe nsive metaboli c panel 2012 013 GELY Not available 3 10:52:17 CBC (include s diff/crow telets) 2012 [email or web address] Not available 4 18:19:13 rheumato id factor 2012 GELY Not available 3 10:52:18 Referral None recorded . Procedures None recorded . Surgeries None recorded . Imaging None recorded . Medication Orders tramadol 50 mg tablet 2013 014 INTERFACE [facility]armacy #[id number], [address] [place], [address], 4 13:25:55 Arthrote c 50 mg-200 mcg tablet,f ilm-coat ed 2013 014 INTERFACE [facility]/Pharmacy #[id number], [address], [place], [address], 4 14:02:44 predniso ne 1 mg tablet 2012 013 [email or web address] [facility]/Pharmacy #[id number], [address], [place], [address], 3 12:11:41 hydrocod one 5 mg-aceta minophen 325 mg tablet 2012 013 GELY [facility]/Pharmacy #[id number], [address] [place], [address], 3 03:09:53 Patient TargetsNo targets recorded. Patient InstructionsNo instructions recorded. Reason for Referral None Reported. Results Created Date Observation Date Name Description Value Unit Range Abnormal Flag Note LastModifiedBy Organization Detail LastModifiedTime 07/07/19 13 07/07/2012 rheum atoid facto r rheumatoid factor 31 IU/mL <14 high Not Available [email or web address] ([employer]) [address] [place] [address], [place], [address], 07/07/2012 07:55:16 02/05/20 13 02/05/2013 C-dewayne ctive prote in (CRP) C-reactive protein, quant 0.8 mg/L 0.0-4. 9 Not Available [facility] ([facility]) [address] [place], [address], 02/07/2013 09:24:23 02/05/20 13 02/05/2013 creat ine kinas e (CK), total creatine kinase,total ,serum 271 U/L 24-173 high Not Available [facility] ([facility]) [address] [place], [address], 02/07/2013 09:24:23 02/05/20 13 02/05/2013 ESR, weste rgren sedimentatio n rate-westerg alejandra 14 mm/HR 0-32 Not Available [facility] ([facility]) [address] [place], [address], 02/07/2013 09:24:23 02/05/20 13 02/06/2013 cycli c citru llina mauro pepti de ccp Ab iga/i gg ccp antibodies IgG/IgA 11 units 0-19 negat tomeka <20 weak posit tomeka 20 - 39 moder ate posit tomeka 40 - 59 stron g posit tomeka >59 Not Available [facility] ([facility]) [address] [place], [address], 02/07/2013 09:24:22 02/05/20 13 02/05/2013 rheum atoid facto r RA latex turbid. 27.9 IU/mL 0.0-13 .9 high Not Available [facility] ([facility]) [address] [place], [address], 02/07/2013 09:24:22 02/05/20 13 02/05/2013 comp. metab olic panel (14) glucose, serum 134 mg/dL 65-99 high Not Available [facility] ([facility]) [address] [place] [address], [address], 02/07/2013 09:24:22 02/05/20 13 02/05/2013 comp. metab olic panel (14) BUN 12 mg/dL 6-24 Not Available [facility] ([facility]) [address] [place] [address], [address], 02/07/2013 09:24:22 02/05/20 13 02/05/2013 comp. metab olic panel (14) creatinine, serum 0.58 mg/dL 0.57-1 .00 Not Available [facility] ([facility]) [address] [place] [address], [address], 02/07/2013 09:24:22 02/05/20 13 02/05/2013 comp. metab olic panel (14) eGFR if nonafricn AM 112 mL/mi n/1.7 3 >59 Not Available [facility] ([facility]) [address] [place], [address], 02/07/2013 09:24:22 02/05/20 13 02/05/2013 comp. metab olic panel (14) eGFR if africn AM 129 mL/mi n/1.7 3 >59 Not Available [facility] ([facility]) [address] [place] [address], [address], 02/07/2013 09:24:22 02/05/20 13 02/05/2013 comp. metab olic panel (14) BUN/creatini ne ratio 21 9-23 Not Available [facility] ([facility]) [address] [place] [address], [address], 02/07/2013 09:24:22 02/05/20 13 02/05/2013 comp. metab olic panel (14) sodium, serum 141 mmol/ L 134-14 4 Not Available [facility] ([facility]) [address] [facility] [place], [address], 02/07/2013 09:24:22 02/05/20 13 02/05/2013 comp. metab olic panel (14) potassium, serum 3.7 mmol/ L 3.5-5. 2 Not Available [facility] ([facility]) [address] [facility] [place], [address], 02/07/2013 09:24:22 02/05/20 13 02/05/2013 comp. metab olic panel (14) chloride, serum 105 mmol/ L 97-108 Not Available [facility] ([facility]) [address] [facility] [place], [address], 02/07/2013 09:24:22 02/05/20 13 02/05/2013 comp. metab olic panel (14) carbon dioxide, total 22 mmol/ L 19-28 Not Available [facility] ([facility]) [address] [facility] [place], [address], 02/07/2013 09:24:22 02/05/20 13 02/05/2013 comp. metab olic panel (14) calcium, serum 9.1 mg/dL 8.7-10 .2 Not Available [facility] ([facility]) [address] [place], [address], 02/07/2013 09:24:22 02/05/20 13 02/05/2013 comp. metab olic panel (14) protein, total, serum 6.8 g/dL 6.0-8. 5 Not Available [facility] ([facility]) [address] [place], [address], 02/07/2013 09:24:22 02/05/20 13 02/05/2013 comp. metab olic panel (14) albumin, serum 4.5 g/dL 3.5-5. 5 Not Available [facility] ([facility]) [address] [place], [address], 02/07/2013 09:24:22 02/05/20 13 02/05/2013 comp. metab olic panel (14) globulin, total 2.3 g/dL 1.5-4. 5 Not Available [facility] ([facility]) [address] [place], [address], 02/07/2013 09:24:22 02/05/20 13 02/05/2013 comp. metab olic panel (14) A/G ratio 2.0 1.1-2. 5 Not Available [facility] ([facility]) [address] [place], [address], 02/07/2013 09:24:22 02/05/20 13 02/05/2013 comp. metab olic panel (14) bilirubin, total 0.4 mg/dL 0.0-1. 2 Not Available [facility] ([facility]) [address] [facility], [place], [address], 02/07/2013 09:24:22 02/05/20 13 02/05/2013 comp. metab olic panel (14) alkaline phosphatase, S 35 IU/L 42-107 low eff ectiv e novem dada 2012 the refer ence inter hipolito for alkal ine phosp hatas e, S will BE reed ing to: age male femal e 0 - 1 day 45 - 111 45 - 111 2 - 5 days 46 - 119 46 - 119 6 - 10 days 48 - 229 48 - 229 11 - 30 days 59 - 414 59 - 414 1 - 6 month s 91 - 445 91 - 445 7 - 12 month s 124 - 341 124 - 341 1 - 3 years 130 - 317 130 - 317 4 - 6 years 133 - 309 133 - 309 7 - 12 years 134 - 349 134 - 349 13 years 143 - 396 68 - 209 14 years 107 - 340 62 - 149 15 years 84 - 254 54 - 121 16 years 71 - 186 49 - 108 17 years 61 - 146 45 - 101 18 years 56 - 127 43 - 101 >18 years 39 - 117 39 - 117 Not Available [facility] ([facility]) [address] [facility], [place], [address], 02/07/2013 09:24:22 02/05/20 13 02/05/2013 comp. metab olic panel (14) AST (SGOT) 24 IU/L 0-40 Not Available [facility] ([facility]) [address] [facility], [place], [address], 02/07/2013 09:24:22 02/05/20 13 02/05/2013 comp. metab olic panel (14) ALT (SGPT) 26 IU/L 0-32 Not Available [facility] ([facility]) [address] [facility], [place], [address], 02/07/2013 09:24:22 02/05/20 13 02/05/2013 CBC w/dif f WBC 5.0 x10e3 /uL 3.4-10 .8 Not Available [facility] ([facility]) [address] [facility], [place], [address], 02/07/2013 09:24:21 02/05/20 13 02/05/2013 CBC w/dif f RBC 4.14 x10e6 /uL 3.77-5 .28 Not Available [facility] ([facility]) [address] [facility], [place], [address], 02/07/2013 09:24:21 02/05/20 13 02/05/2013 CBC w/dif f hemoglobin 13.3 g/dL 11.1-1 5.9 Not Available [facility] ([facility]) [address] [facility], [place], [address], 02/07/2013 09:24:21 02/05/20 13 02/05/2013 CBC w/dif f hematocrit 39.2 % 34.0-4 6.6 Not Available [facility] ([facility]) [address] [facility], [place], [address], 02/07/2013 09:24:21 02/05/20 13 02/05/2013 CBC w/dif f MCV 95 fL 79-97 Not Available [facility] ([facility]) [address] [facility], [place], [address], 02/07/2013 09:24:21 02/05/20 13 02/05/2013 CBC w/dif f MCH 32.1 pg 26.6-3 3.0 Not Available [facility] ([facility]) [address] [facility], [place], [address], 02/07/2013 09:24:21 02/05/20 13 02/05/2013 CBC w/dif f MCHC 33.9 g/dL 31.5-3 5.7 Not Available [facility] ([facility]) [address] [facility], [place], [address], 02/07/2013 09:24:21 02/05/20 13 02/05/2013 CBC w/dif f RDW 13.4 % 12.3-1 5.4 Not Available [facility] ([facility]) [address] [facility], [place], [address], 02/07/2013 09:24:21 02/05/20 13 02/05/2013 CBC w/dif f platelets 247 x10e3 /uL 155-37 9 Not Available [facility] ([facility]) [address] [facility], [place], [address], 02/07/2013 09:24:21 02/05/20 13 02/05/2013 CBC w/dif f neutrophils 47 % 40-74 Not Available [facility] ([facility]) [address] [facility], [place], [address], 02/07/2013 09:24:21 02/05/20 13 02/05/2013 CBC w/dif f lymphs 40 % 14-46 Not Available [facility] ([facility]) [address] [facility], [place], [address], 02/07/2013 09:24:21 02/05/20 13 02/05/2013 CBC w/dif f monocytes 10 % 4-12 Not Available [facility] ([facility]) [address] [facility], [place], [address], 02/07/2013 09:24:21 02/05/20 13 02/05/2013 CBC w/dif f eos 2 % 0-5 Not Available [facility] ([facility]) [address] [facility], [place], [address], 02/07/2013 09:24:21 02/05/20 13 02/05/2013 CBC w/dif f basos 1 % 0-3 Not Available [facility] ([facility]) [address] [place], [address], 02/07/2013 09:24:21 02/05/20 13 02/05/2013 CBC w/dif f neutrophils (absolute) 2.4 x10e3 /uL 1.4-7. 0 Not Available [facility] ([facility]) [address] [place], [address], 02/07/2013 09:24:21 02/05/20 13 02/05/2013 CBC w/dif f lymphs (absolute) 2.0 x10e3 /uL 0.7-3. 1 Not Available [facility] ([facility]) [address] [place], [address], 02/07/2013 09:24:21 02/05/20 13 02/05/2013 CBC w/dif f monocytes(ab solute) 0.5 x10e3 /uL 0.1-0. 9 Not Available [facility] ([facility]) [address] [place], [address], 02/07/2013 09:24:21 02/05/20 13 02/05/2013 CBC w/dif f eos (absolute) 0.1 x10e3 /uL 0.0-0. 4 Not Available [facility] ([facility]) [address] [place], [address], 02/07/2013 09:24:21 02/05/20 13 02/05/2013 CBC w/dif f baso (absolute) 0.0 x10e3 /uL 0.0-0. 2 Not Available [facility] ([facility]) [address] [facility], [place], [address], 02/07/2013 09:24:21 02/05/20 13 02/05/2013 CBC w/dif f immature granulocytes 0 % 0-2 Not Available [facility] ([facility]) [address] [facility], [place], [address], 02/07/2013 09:24:21 02/05/20 13 02/05/2013 CBC w/dif f immature grans (abs) 0.0 x10e3 /uL 0.0-0. 1 Not Available [facility] ([facility]) [address] [facility], [place], [address], 02/07/2013 09:24:21 04/08/20 13 04/09/2013 CBC w/dif f WBC 5.9 x10e3 /uL 3.4-10 .8 Not Available [facility] ([facility]) [address] [place] [address], [place], [address], 04/09/2013 11:18:18 04/08/20 13 04/09/2013 CBC w/dif f RBC 4.26 x10e6 /uL 3.77-5 .28 Not Available [facility] ([facility]) [address] [place] [address], [address], 04/09/2013 11:18:18 04/08/20 13 04/09/2013 CBC w/dif f hemoglobin 13.8 g/dL 11.1-1 5.9 Not Available [facility] ([facility]) [address] [place] [address], [address], 04/09/2013 11:18:18 04/08/20 13 04/09/2013 CBC w/dif f hematocrit 40.0 % 34.0-4 6.6 Not Available [facility] ([facility]) [address] [facility], [place], [address], 04/09/2013 11:18:18 04/08/20 13 04/09/2013 CBC w/dif f MCV 94 fL 79-97 Not Available [facility] ([facility]) [address] [facility], [place], [address], 04/09/2013 11:18:18 04/08/20 13 04/09/2013 CBC w/dif f MCH 32.4 pg 26.6-3 3.0 Not Available [facility] ([facility]) [address] [facility], [place], [address], 04/09/2013 11:18:18 04/08/20 13 04/09/2013 CBC w/dif f MCHC 34.5 g/dL 31.5-3 5.7 Not Available [facility] ([facility]) [address] [facility], [place], [address], 04/09/2013 11:18:18 04/08/20 13 04/09/2013 CBC w/dif f RDW 12.3 % 12.3-1 5.4 Not Available [facility] ([facility]) [address] [facility], [place], [address], 04/09/2013 11:18:18 04/08/20 13 04/09/2013 CBC w/dif f platelets 269 x10e3 /uL 155-37 9 Not Available [facility] ([facility]) [address] [facility], [place], [address], 04/09/2013 11:18:18 04/08/20 13 04/09/2013 CBC w/dif f neutrophils 48 % 40-74 Not Available [facility] ([facility]) [address] [facility], [place], [address], 04/09/2013 11:18:18 04/08/20 13 04/09/2013 CBC w/dif f lymphs 39 % 14-46 Not Available [facility] ([facility]) [address] [facility], [place], [address], 04/09/2013 11:18:18 04/08/20 13 04/09/2013 CBC w/dif f monocytes 8 % 4-12 Not Available [facility] ([facility]) [address] [place] [address], [address], 04/09/2013 11:18:18 04/08/20 13 04/09/2013 CBC w/dif f eos 4 % 0-5 Not Available [facility] ([facility]) [address] [place] [address], [address], 04/09/2013 11:18:18 04/08/20 13 04/09/2013 CBC w/dif f basos 1 % 0-3 Not Available [facility] ([facility]) [address] [place] [address], [place], [address], 04/09/2013 11:18:18 04/08/20 13 04/09/2013 CBC w/dif f neutrophils (absolute) 2.9 x10e3 /uL 1.4-7. 0 Not Available [facility] ([facility]) [address] [place] [address], [place], [address], 04/09/2013 11:18:18 04/08/20 13 04/09/2013 CBC w/dif f lymphs (absolute) 2.3 x10e3 /uL 0.7-3. 1 Not Available [facility] ([facility]) [address] [place] [address], [address], 04/09/2013 11:18:18 04/08/20 13 04/09/2013 CBC w/dif f monocytes(ab solute) 0.5 x10e3 /uL 0.1-0. 9 Not Available [facility] ([facility]) [address] [place] [address], [address], 04/09/2013 11:18:18 04/08/20 13 04/09/2013 CBC w/dif f eos (absolute) 0.2 x10e3 /uL 0.0-0. 4 Not Available [facility] ([facility]) [address] [facility], [place], [address], 04/09/2013 11:18:18 04/08/20 13 04/09/2013 CBC w/dif f baso (absolute) 0.1 x10e3 /uL 0.0-0. 2 Not Available [facility] ([facility]) [address] [place] [address], [place], [address], 04/09/2013 11:18:18 04/08/20 13 04/09/2013 CBC w/dif f immature granulocytes 0 % 0-2 Not Available [facility] ([facility]) [address] [place] [address], [place], [address], 04/09/2013 11:18:18 04/08/20 13 04/09/2013 CBC w/dif f immature grans (abs) 0.0 x10e3 /uL 0.0-0. 1 Not Available [facility] ([facility]) [address] [place] [address], [place], [address], 04/09/2013 11:18:18 04/08/20 13 04/09/2013 compr ehens tomeka metab olic panel glucose, serum 105 mg/dL 65-99 high Not Available [facility] ([facility]) [address] [place] [address], [address], 04/09/2013 11:18:19 04/08/20 13 04/09/2013 compr ehens tomeka metab olic panel BUN 14 mg/dL 8-27 Not Available [facility] ([facility]) [address] [place] [address], [address], 04/09/2013 11:18:19 04/08/20 13 04/09/2013 compr ehens tomeka metab olic panel creatinine, serum 0.56 mg/dL 0.57-1 .00 low Not Available [facility] ([facility]) [address] [facility], [place], [address], 04/09/2013 11:18:19 04/08/20 13 04/09/2013 compr ehens tomeka metab olic panel eGFR if nonafricn AM 96 mL/mi n/1.7 3 >59 Not Available [facility] ([facility]) [address] [facility], [place], [address], 04/09/2013 11:18:19 04/08/20 13 04/09/2013 compr ehens tomeka metab olic panel eGFR if africn AM 111 mL/mi n/1.7 3 >59 Not Available [facility] ([facility]) [address] [place], [address], 04/09/2013 11:18:19 04/08/20 13 04/09/2013 compr ehens tomeka metab olic panel BUN/creatini ne ratio 25 11-26 Not Available [facility] ([facility]) [address] [place] [address], [address], 04/09/2013 11:18:19 04/08/20 13 04/09/2013 compr ehens tomeka metab olic panel sodium, serum 142 mmol/ L 134-14 4 Not Available [facility] ([facility]) [address] [place] [address], [address], 04/09/2013 11:18:19 04/08/20 13 04/09/2013 compr ehens tomeka metab olic panel potassium, serum 4.0 mmol/ L 3.5-5. 2 Not Available [facility] ([facility]) [address] [place] [address], [address], 04/09/2013 11:18:19 04/08/20 13 04/09/2013 compr ehens tomeka metab olic panel chloride, serum 103 mmol/ L 97-108 Not Available [facility] ([facility]) [address] [place], [address], 04/09/2013 11:18:19 04/08/20 13 04/09/2013 compr ehens tomeka metab olic panel carbon dioxide, total 24 mmol/ L - Not Available [facility] ([facility]) [address] [facility], [place], [address], 04/09/2013 11:18:19 04/08/20 13 04/09/2013 compr ehens tomeka metab olic panel calcium, serum 9.6 mg/dL 8.6-10 .2 Not Available [facility] ([facility]) [address] [facility], [place], [address], 04/09/2013 11:18:19 04/08/20 13 04/09/2013 compr ehens tomeka metab olic panel protein, total, serum 7.1 g/dL 6.0-8. 5 Not Available [facility] ([facility]) [address] [place], [address], 04/09/2013 11:18:19 04/08/20 13 04/09/2013 compr ehens tomeka metab olic panel albumin, serum 4.7 g/dL 3.6-4. 8 Not Available [facility] ([facility]) [address] [place], [address], 04/09/2013 11:18:19 04/08/20 13 04/09/2013 compr ehens tomeka metab olic panel globulin, total 2.4 g/dL 1.5-4. 5 Not Available [facility] ([facility]) [address] [place], [address], 04/09/2013 11:18:19 04/08/20 13 04/09/2013 compr ehens tomeka metab olic panel A/G ratio 2.0 1.1-2. 5 Not Available [facility] ([facility]) [address] [place] [address], [address], 04/09/2013 11:18:19 04/08/20 13 04/09/2013 compr ehens tomeka metab olic panel bilirubin, total 0.3 mg/dL 0.0-1. 2 Not Available [facility] ([facility]) [address] [facility] [place], [address], 04/09/2013 11:18:19 04/08/20 13 04/09/2013 compr ehens tomeka metab olic panel alkaline phosphatase, S 38 IU/L 39-117 low Not Available [facility] ([facility]) [address] [facility] [place], [address], 04/09/2013 11:18:19 04/08/20 13 04/09/2013 compr ehens tomeka metab olic panel AST (SGOT) 23 IU/L 0-40 Not Available [facility] ([facility]) [address] [facility], [place], [address], 04/09/2013 11:18:19 04/08/20 13 04/09/2013 compr ehens tomeka metab olic panel ALT (SGPT) 21 IU/L 0-32 Not Available [facility] ([facility]) [address] [facility], [place], [address], 04/09/2013 11:18:19 04/08/20 13 04/09/2013 vitam in B12 & folat e vitamin B12 1272 pg/mL 211-94 6 high Not Available [facility] ([facility]) [address] [place], [address], 04/09/2013 11:18:20 04/08/20 13 04/09/2013 vitam in B12 & folat e folate (folic acid), serum 18.7 NG/mL >3.0 A serum folat e markos ntrat ion of less than 3.1 NG/mL IS consi dered to repre sent clini shirley defic iency . Not Available [facility] ([facility]) [address] [facility], [place], [address], 04/09/2013 11:18:20 04/08/20 13 04/09/2013 ESR, weste rgren sedimentatio n rate-westerg alejandra 6 mm/HR 0-40 Not Available [facility] ([facility]) [address] [place], [address], 04/09/2013 11:18:20 04/08/20 13 04/09/2013 creat ine kinas e (CK), total creatine kinase,total ,serum 287 U/L 24-173 high Not Available [facility] ([facility]) [address] [facility], [place], [address], 04/09/2013 11:18:21 04/08/20 13 04/09/2013 C-dewayne ctive prote in (CRP) C-reactive protein, quant 1.0 mg/L 0.0-4. 9 Not Available [facility] ([facility]) [address] [place], [address], 04/09/2013 11:18:21 04/08/20 13 04/08/2013 repor t comme nts an abbrev CMP14 default SPRCS A hand- writt en panel /prof joe was recei de from your offic e. in accor dance with the labco rp an daugherty test code polic y dated october 2002, we have compl eted your order by using the close st curre ntly or [facility] recog nized AMA panel . we have assig monserrat compr ehens tomeka metab olic panel (14), test code #[address]. if this IS not the testi ng you wishe d to recei ve on this speci men, pleas e conta ct the labco rp clien t inqui ry/te chnic al servi jack depar tment to steph fy the test order . we appre ciate your busin ess. Not Available [facility] ([facility]) [address] [facility], [place], [address], 04/09/2013 11:18:22 07/24/19 13 07/23/2012 x-ray , hand No observ ation record ed. [facility] [address], [place], [address], 11/02/2012 03:09:55 07/24/19 13 07/23/2012 x-ray , hand No observ ation record ed. [facility] [address], [place], [address], 11/02/2012 03:09:55 Result Notes None recorded. Problems Name Problem SNOMED Code Status Onset Date Resolution Date Notes Provider Name and Address Organization Details Recorded Time Anemia 280202503 Active Not Available [facility] 3 03:02:23 Arteritis 69899982 Active Not Available [facility] 3 03:02:23 Pain of multiple joints 88933248 Active Not Available [facility] 3 03:02:23 Low back pain 882117924 Active Betty Masterson MD [facility] [address], [place], [address] , [facility] 4 13:20:15 Urine finding 468029454 Active Not Available [facility] 3 03:02:23 Rheumatoid arthritis 62724908 Active Betty Masterson MD [address], [place], [address] , [facility] - [facility] [employer] 4 14:02:52 Vitamin D deficiency 47349935 Active Not Available [facility] 3 03:02:23 Polymyalgia rheumatica 28339806 Active Betty Matserson MD [address], [place], [address] , [facility] - [facility] [employer] 3 13:59:45 Problem Notes None recorded. Procedures Surgical History Date Name Laterality Status Provider Name and Address Organization Details Recorded Time 06/22/19 13 RAC - Trisha Articular completed Betty Masterson MD [address], [place], [address], [place] - [facility] 06/24/2012 17:23:02 04/10/19 09 Back Surgery completed Pooja Parker [place] - [facility] 05/28/2012 17:47:54 04/10/18 92 Other completed Pooja [facility] - [facility] [employer] 05/28/2012 17:47:54 04/10/18 90 Breast Surgery completed Pooja [facility] - [facility] 05/28/2012 17:47:54 04/10/18 80 Hysterectomy completed [facility] - [facility] [employer] 05/28/2012 17:47:54 Imaging Results None recorded. Procedure Notes None recorded. Medical Equipment None Reported. Allergies No known drug allergies Medications Name Sig Start Date Stop Date Status Note LastModified by Organization Details LastModified Time hydrocodone 5 mg-acetamin ophen 325 mg tablet Take 1 tablet twice a day by oral route as needed. active Not Available Not Available No t Available prednisone 5 mg tablet Take 3 tablets every day by oral route in the morning for 30 days. 2012 active Not Available Not Available Not Avai lable tramadol 50 mg tablet Take 1 tablet 3 times a day by oral route as needed. 2013 active Not Available Not Available Not Avai lable quinapril 10 mg tablet Take 1 tablet every day by oral route. active Not Available Not Available No t Available Vitamin D3 10 mcg (400 unit) tablet active Not Available Not Available Not Available calcium and magnesium carbonates 311 mg-232 mg tablet TAKE 2 TABLETS BY ORAL ROUTE NEEDED OR DIRECTED. NOT TO EXCEED 24 TABLETS IN 24HRS active Not Available Not Available No t Available prednisone 1 mg tablet Currently on 15 mg daily. Decrease by 1 mg every 2 weeks until maintaine d on 10 mg. 2012 active Not Available Not Available Not Avai lable Arthrotec 50 mg-200 mcg tablet,film -coated Take 1 tablet twice a day by oral route as directed for 30 days. 05/16 completed Not Available Not Available Not Available hydrocodone 5 mg-acetamin ophen 500 mg tablet Take 1 tablet 3 times a day by oral route as needed. active Not Available Not Available No t Available quinapril 20 mg tablet active Not Available Not Available Not Available zolpidem 10 mg tablet active Not Available Not Available No t Available methylpredn isolone 4 mg tablets in a dose pack active Not Available Not Available Not Available vitamin E active Not Available Not Gretchen ilable Not Available Cinnamon active Not Available Not Avai lable Not Available fenofibrate nanocrystal lized 48 mg tablet Take 1 tablet every day by oral route. active Not Available Not Available No t Available aspirin 81 mg effervescen t tablet active Not Available Not Available Not Available Probiotic active Not Available Not Gretchen ilable Not Available Vicodin 5 mg-300 mg tablet Take 1 tablet every 4 hours by oral route. active Not Available Not Available No t Available Vitals Date Recorded Body height Body weight Body mass index (BMI) Heart rate Oxygen saturation Oxygen saturation in Arterial blood by Pulse oximetry Systolic blood pressure Diastolic blood pressure Provider Name and Address Organization Details Last Updated DateTime 4 152.4 cm 22173.3 50715 g 30.9 kg/m2 89 /min 99 % 99 % 128 mm[Hg] 70 mm[Hg] Ilir resendez [place] - [facility] 4 13:49:40 Date Recorded Body height Body weight Body mass index (BMI) Heart rate Oxygen saturation Oxygen saturation in Arterial blood by Pulse oximetry Systolic blood pressure Diastolic blood pressure Provider Name and Address Organization Details Last Updated DateTime 4 152.4 cm 61142.0 61895 g 30 kg/m2 81 /min 98 % 98 % 126 mm[Hg] 68 mm[Hg] Kavya toro [place] - [facility] [employer] 4 12:48:11 Date Recorded Body height Body weight Body mass index (BMI) Heart rate Body temperature Systolic blood pressure Diastolic blood pressure Provider Name and Address Organization Details Last Updated DateTime 3 152.4 cm 35079.8 9365 g 28.3 kg/m2 88 /min 98.4 [degF] 124 mm[Hg] 69 mm[Hg] Pallavi Lynn [place] - [facility] 3 12:41:04 Date Recorded Body height Body weight Body mass index (BMI) Heart rate Oxygen saturation Oxygen saturation in Arterial blood by Pulse oximetry Systolic blood pressure Diastolic blood pressure Provider Name and Address Organization Details Last Updated DateTime 3 152.4 cm 20134.6 94142 g 31.7 kg/m2 103 /min 98 % 98 % 142 mm[Hg] 76 mm[Hg] Kavya toro [place] - [facility] 3 13:56:31 Date Recorded Body height Body weight Body mass index (BMI) Heart rate Oxygen saturation Oxygen saturation in Arterial blood by Pulse oximetry Systolic blood pressure Diastolic blood pressure Provider Name and Address Organization Details Last Updated DateTime 3 152.4 cm 44213.5 9446 g 30.9 kg/m2 93 /min 95 % 95 % 110 mm[Hg] 74 mm[Hg] Kavya toro [place] - [facility] 3 12:11:40 Social History Question Answer Notes LastModified by Organizat ion Details LastModified Time Tobacco Smoking Status Never Smoker Not Available [facility] 01/24/2020 03:09:35 Do You Have An Advance Directive? No [id number] Information not available 01/24/2020 What Is Your Level Of Caffeine Consumption? Occasional [id number] Information not available 01/24/2020 How Much Tobacco Do You Chew? None [id number] Information not available 01/24/2020 Education 12 [email or web address] Information not available 05/28/2012 Hours Of Sleep Per Night On Average 6-7 Information not available 05/28/2012 Marital Status [email or web address] Informat ion not available 05/28/2012 How Much Tobacco Do You Smoke? No [id number] Information not available 01/24/2020 Do You Use Sunscreen Routinely? No [id number] Information not available 01/24/2020 Sex: Unknown Functional Status Question Answer Note LastModified by Organizat ion Details LastModified Time What is your level of alcohol consumption? 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 Heavy [id number] Information not available 01/24/2020 Mental Status None recorded. Family History Relationship Description Onset Age of this Age Resolved Age Notes LastModified by Organization Details LastModified Time Father Myocardial infarction 56 previo usly record ed as Heart Attack ([place]) [email or web address] Not available 05/21/2013 12:48:11 Mother Malignant neoplastic disease 71 previo usly record ed as Cancer [email or web address] Not available 05/21/2013 12:48:11 Medical History Condition Response Coronary Artery Disease N Gout N Osteoarthritis N Arthritis (unkown type) N Kidney Stones N Bad headaches Y UlcerativeColitis/Crohn's Dz N Vasculitis N COPD N Sarcoidosis N Glaucoma N Depression N Recurrent Infections N Catarcts N Pneumonia N Sjogren's Syndrome N Anemia N Multiple Sclerosis N Celiac Disease N Cystic Fibrosis N Diabetes N Stomach ulcers Y Rheumatic Fever N CHF N Lupus or SLE N Pulmonary Embolism/DVT N Tuberculosis N Cancer N Stroke N Asthma N Ankylosing Spondylitis N HIV/AIDS N Psoriasis N Jaundice N GERD/Reflux N High Cholesterol N leukemia N Liver Disease N Rheumatoid Arthritis N Fibromyalgia N Thyroid disese N Hypertension Y Osteoporosis N Kidney Disease N Gynecological History Statement/Question Response Menses Monthly N Current Control Method None History of Miscarriages? N Obstetrics History GPAL:G 0 P 0 0 0 0 Immunizations Vaccine Type Date Status Note Provider Nam e and Address Organization Details Recorded Time Pneumococcal conjugate PCV 13 0 completed Ilir armendariz, [place] - [facility] 06/21/2012 18:57:16 Influenza, high-dose, trivalent, PF 2 completed Kavya armendariz, [place] - [facility] 02/04/2013 13:56:32 Influenza, split virus, trivalent, preservative 3 completed Kavya armendariz [facility] [employer] 05/21/2013 12:48:10 Past Encounters Encounter ID Performer Location Encounter Start Date Encounter Closed Date Diagnosis/Indication Diagnosis SNOMED-CT Code Diagnosis ICD10 Code Diagnosis Note [id number] Betty Masterson MD OFFICE- [facility] [address] [place] [address] 05/28/2012 17:40:47 05/28/2012 19:07:06 [id number] Betty Masterson MD OFFICE- [facility] [address] [place] [address] 06/21/2012 18:51:56 06/21/2012 20:10:03 [id number] Betty Masterson MD OFFICE- [facility] [address] [place] [address] 07/23/2012 12:34:14 07/23/2012 13:03:10 [id number] Betty Masterson MD OFFICE- [facility] [address] [place] [address] 02/04/2013 13:51:53 02/04/2013 14:37:14 [id number] Betty Masterson MD OFFICE- [facility] [address] [place] [address] 03/14/2013 12:05:17 03/14/2013 12:35:20 [id number] Betty Masterson MD OFFICE- [facility] [address] [place] [address] 04/16/2013 13:44:30 04/16/2013 14:33:37 Rheumatoid arthritis 65624970 [id number] Betty Masterson MD OFFICE- [facility] [address] [place] [address] 05/21/2013 12:37:01 05/21/2013 13:18:40 Low back pain 564849636 Health Concerns Section Related Observation LastModified by Organization Detai ls LastModified Time None Recorded Concern Status LastModified by Organization Details LastModified Time None Recorded Advance Directives Directive N: Payers Insurance Date Sequence Insurance Name Policy Number Policy Cárdenas Covered Member ID Cárdenas Member ID Guarantor Name 11/23/2013 1 [place] Belen Pineda [id number] Belen Pineda 11/23/2013 2 [facility] (MEDICARE SUPPLEMENT) Belen Pineda [id number] Belen Pineda Notes Date Note Type Note Provider Name and Address Organization Details Recorded Time 07/23/2012 text/html PMR/RA. Pt denie s any signs or sxs of GCA or vascular claudication sxs. Pt has been seen by rheumatology in the past for RA and was treated with Gold shots, followed by diclofenace, HCQ and this was d/c due to color vision changes. Pt denies any signs or sxs of RA/IA with am stiffness lasting < 15 minutes. Patient returns today for reevaluation. Patient is currently on 15 mg of prednisone daily. The patient was started on prednisone at the initial visit based active signs and symptoms of PMR. Patient had a comprehensive workup for inflammatory arthritis. Patient with positive rheumatoid factor and normal anti-CCP antibody. X-ray of the hands have not been done. Patient's right hip pain has improved significantly. Patient continues to have back pain which is being treated as mechanical back pain. Patient continues to take the Vicodin as needed for her back pain. Patient continues to have paresthesias in mainly affecting the right lower extremity. Patient with a history of spinal surgery including hardware in the spine. At the present time the patient does not have any signs or symptoms of active PMR and denies any signs or symptoms of GCA. Patient does note right shoulder pain which is intermittent in nature and mechanical. [facility] - [facility] 07/25/2012 15:39:56 02/04/2013 text/html PMR/RA. Pt denie s any signs or sxs of GCA or vascular claudication sxs. Pt has been seen by rheumatology in the past for RA and was treated with Gold shots, followed by diclofenace, HCQ and this was d/c due to color vision changes. Pt denies any signs or sxs of RA/IA with am stiffness lasting < 15 minutes. Patient returns today for reevaluation. Patient has not followed up with me for nearly 6 months. It appears there has been some confusion on the patient's part on the prednisone. Has been on 10 mg until one month ago when the patient accidentally took 21 mg tablets as opposed to taking 2, 5 mg tablets and has been taking 2 mg. Patient has not noticed any worsening of her symptoms. Denies any signs or symptoms of PMR or GCA. Patient is able to form a fist in the morning. Morning stiffness lasting less than 15 min. Patient uses Aleve OTC for pain control. Overall the patient is doing quite well and is happy to be back in town. [facility] - [facility] 02/04/2013 16:35:48 03/14/2013 text/html PMR/RA. Pt denie s any signs or sxs of GCA or vascular claudication sxs. Pt has been seen by rheumatology in the past for RA and was treated with Gold shots, followed by diclofenace, HCQ and this was d/c due to color vision changes. Pt denies any signs or sxs of RA/IA with am stiffness lasting < 15 minutes. Patient returns today for reevaluation. Patient has completely taken herself off the prednisone. Has not noticed any changes in her symptoms. Denies any myalgias in the proximal shoulder or hip girdle regions. Is able to form a fist. Morning stiffness less than 10 min. Patient's major complaint today is paresthesia affecting bilateral feet and hands. Screening for inflammatory arthritis otherwise negative. Overall the patient is quite happy with her symptom control other than the paresthesia. [facility] - [facility] 03/15/2013 14:11:56 04/16/2013 text/html PMR/RA. Pt denie s any signs or sxs of GCA or vascular claudication sxs. Pt has been seen by rheumatology in the past for RA and was treated with Gold shots, followed by diclofenace, HCQ and this was d/c due to color vision changes. Pt denies any signs or sxs of RA/IA with am stiffness lasting < 15 minutes. Patient returns today for reevaluation. Patient has been having diffuse joint pain. Mainly affecting the hands to reverse the shoulders and knees to feet consistent with mechanical joint pain. This has gotten worse over the last 1-2 weeks with the recent weather changes. Screening for PMR and GC negative. Since then symptoms are not consistent with an active inflammatory arthritis. Patient has been using Aleve over the last 2-3 weeks since this does seem to help. [facility] - [facility] 04/18/2013 12:51:36 05/21/2013 text/html PMR/RA. Pt denie s any signs or sxs of GCA or vascular claudication sxs. Pt has been seen by rheumatology in the past for RA and was treated with Gold shots, followed by diclofenace, HCQ and this was d/c due to color vision changes. Pt denies any signs or sxs of RA/IA with am stiffness lasting < 15 minutes. Patient returns today for reevaluation. Patient is doing fairly well. Tolerating Arthrotec without any major side effects but is having a hard time tolerating it due to diarrhea. Is able to form a fist in the morning. Morning stiffness less than 10-15 min. Denies any signs or symptoms of PMR or GCA. Patient with left shoulder pain and range of motion limitation. Mechanical in nature. Denies any radiation of the pain. Screen for inflammatory arthritis negative. Betty Masterson MD [address] [facility],[address], [place], [address], [facility] - [facility] 05/21/2013 13:21:27 OBGyn Episode No OBEpisode recorded.
[2024-09-26] MEDS: ONDANSETRON INJ 4 MG/2 ML VIAL IV PUSH (22:26)
[2024-09-26] MEDS: SODIUM CHLORIDE 0.9% IV 1,000 ML 999 ML IV CONT (22:27)
[2024-09-26 22:29] LABS: Basophils Absolute Auto 0.1 K/mm3 (0.0-0.1); Basophils Percent Auto 0.8 % (0.2-1.2); Eosinophils Absolute Auto 0.3 K/mm3 (0-0.3); Eosinophils Percent Auto 3.4 % (0-4.4); Hematocrit 40.6 % (37.0-47.0); Hemoglobin 13.8 g/dL (12.0-15.0); Immature Granulocyte Absolute 0.02 K/mm3 (0.00-0.031); Immature Granulocyte Percent A 0.3 % (0-0.5); Lymphocytes Percent Auto 47.9 % (18.3-44.2); Mean Corpuscular Hemoglobin 31.7 pg (26-34); Mean Corpuscular Volume 93.3 fl (80-100); Monocytes Absolute Auto 0.3 K/mm3 (0.1-0.6); Monocytes Percent Auto 3.5 % (2.6-8.5); Neutrophils Absolute Auto 3.5 K/mm3 (1.3-6.7); Neutrophils Percent Auto 44.1 % (45.5-73.1); Platelet Count Result 197 k/mm3 (150-375); Red Blood Count 4.35 M/mm3 (4.2-5.4); Red Cell Distribution Width 11.9 % (11.5-14.5); White Blood Count 7.9 K/mm3 (4.5-10.0)
[2024-09-26 22:41] LABS: INR 1.1; Prothrombin Time 13.9 Seconds (11.1-14.7)
[2024-09-26 22:42] LABS: Partial Thromboplastin Time 24.1 Seconds (22.3-36.8)
[2024-09-26 22:45] LABS: Alanine Aminotransferase 47 U/L (6-35); Albumin Level 4.6 g/dL (3.5-5.1); Alkaline Phosphatase 46 U/L (38-126); Anion Gap 10 mmol/L (4-12); Aspartate Amino Transferase 49 U/L (14-36); Bilirubin,Total 0.8 mg/dL (0.2-1.3); Blood Urea Nitrogen 18 mg/dL (7-17); Calcium 9.5 mg/dL (8.4-10.2); Carbon Dioxide 22 mmol/L (22-30); Chloride 106 mmol/L (98-107); Estimated CRCL calculation 42 ml/min; Estimated Glomerular Filt Rate > 60; Glucose 122 mg/dL (65-110); Lipase 190 U/L (23-300); Magnesium 3.1 mg/dL (1.6-2.3); Potassium 3.4 mmol/L (3.4-5.0); Sodium 138 mmol/L (137-145); Total Protein 7.6 g/dL (6.3-8.2)
[2024-09-26 22:56] LABS: Add Urine Microscopic? YES; Appearance Urine Clear (Clear); Bacteria Urine None Seen /hpf; Bilirubin Urine Negative (Negative); Blood Urine Negative (Negative); Color Urine Dark Yellow (Yellow); Glucose Urine UA Negative (Negative); Hyaline Casts Urine Present /lpf; Ketones Urine Trace mg/dL (Negative); Leukocyte Esterase Ur Negative LEU/UL (Negative); Need Manual Microscopic Reviewed; Nitrate Urine Negative (Negative); Protein Urine 1+ mg/dL (Negative); RBC Urine 0-2 /hpf (0-2); Squamous Epithelial Cell Urine None Seen /hpf (Few); WBC Urine 0-5 /hpf (0-3); pH Urine 6.5 (5.0-9.0)
[2024-09-26 22:56] LABS: Troponin I < 0.012 ng/mL (0.000-0.034)
[2024-09-26 22:57] LABS: Lactic Acid Reflex 2.7 mmol/L (0.7-2.0)
--- NOTE | 2024-09-26 23:15 | PC.NURSE ---
Pt. had multiple large BM. First BM Large and hard. Subsequent BM brown and watery. Pt. cleaned of BM x4 with soap and water. Pt. now on bedpan. Imaging delayed. Dr. Nieto aware.
[2024-09-27] VITALS (21 sets, daily range): BP systolic 102–146; BP diastolic 44–81; PULSE 68–87; RESP 12–22; TEMP 36.6–37.1; O2SAT 95–100; BMI 25.0
[2024-09-27 00:26] LABS: Reflex Lactic Acid Yes or No Add Lactic
--- NOTE | 2024-09-27 00:44 | PC.NURSE ---
edp at bedside for rectal exam as pt had red blood and clots in last bedpan of stool
--- NOTE | 2024-09-27 01:20 | ECG_ITS ---
Test Date: 2024-09-27 01:27:38 Measurements Intervals [place] Rate: 81 P: 49 NH: 191 QRS: -50 QRSD: 140 T: 114 QT: 433 QTc: 504 Interpretive Statements SINUS RHYTHM LEFT AXIS DEVIATION POSSIBLE LEFT ATRIAL ENLARGEMENT LEFT BUNDLE BRANCH BLOCK ABNORMAL ECG Compared to ECG 09/26/2024 22:01:22 No significant changes Electronically Signed On 09-27-2024 07:10:13 CDT by Vicente Potter D.O.
[2024-09-27 01:22] LABS: Lactic Acid 2.2 mmol/L (0.7-2.0)
[2024-09-27 01:26] LABS: Troponin I < 0.012 ng/mL (0.000-0.034)
[2024-09-27] MEDS: MORPHINE SULFATE (*CRX) 2 MG/ML INJ (02:10)
[2024-09-27] MEDS: SODIUM CHLORIDE 0.9% IV 1,000 ML 999 ML IV CONT (04:05)
--- NOTE | 2024-09-27 06:01 | ADMGEN ---
This patient, Belen Pineda, was admitted to Medical Room 343-01. Patient/family oriented to hospital policies and general routines including ID bracelet, bed and alarms, visiting hours, pain management, procedures, bathroom and other care routines, personal items, smoking policy, room service/diet, and visiting hours. Information on how to activate the Rapid Response Team has been discussed. Patient/Family are encouraged to report perceived risks to care and to ask questions if they do not understand what they are told or what they should do.
[2024-09-27] MEDS: SODIUM CHLORIDE 0.9% IV 1,000 ML 125 ML IV CONT ×2 (06:20→17:18)
[2024-09-27] MEDS: MORPHINE SULFATE (*CRX) 4 MG/ML INJ IV PUSH ×3 (07:30→22:21)
[2024-09-27] MEDS: ONDANSETRON INJ 4 MG/2 ML VIAL IV PUSH (07:30)
[2024-09-27] MEDS: metroNIDAZOLE 500 MG/ISO 100ML 500 MG/100 ML BAG 100 MG IVPB ×3 (07:31→22:23)
--- NOTE | 2024-09-27 08:29 | P.HP_ITS ---
H&P: HPI History of Present Illness Date/Time: 09/27/24 08:29 Chief Complaint: Syncope, abdominal pain Narrative: Belen Pineda is a 79-year-old female with a past medical history of HTN and osteoporosis who presents to the hospital for abdominal pain and a syncopal episode that occurred on the day of admission. Patient states that for the past several days she has felt off and has had intermittent lower abdominal pain. She has a history of constipation, usually only passing stool every 3 days while on a high fiber diet along with regular miralax. She states that her usual pattern includes constipation with strenuous straining, which then progressed to diarrhea after having to use MiraLax or other stool softeners. She says that this has been going on since the 1960s after she had back surgery. She has previously had a barium enema which showed a ?kinked intestine?, and is not able to have a colonoscopy performed. She states that she was straining so much at home to pass a stool, that she caused herself to become diaphoretic and have a syncopal episode for roughly 5 seconds. This was witnessed by , denies falling to the ground or hitting her head, stating that she just slumped over for a few seconds. She states that her lower abdominal pain started prior to arrival to emergency department. Endorses some nausea and vomiting in the ambulance but no episodes since then. He denies any abdominal bloating, dysphagia, regurgitation, appetite loss, unexplained weight loss, or hematochezia. Takes a daily aspirin 81 mg but denies excessive NSAID or anticoagulation use. Denies smoking history, nondrinker. Family history of pancreatic cancer. No family history of IBD. In ED: 37.6C, 73 HR, 16 RR, 121/59, 100% on RA CBC unremarkable. No electrolyte abnormalities. Lactic acid was2.7, decreased to 2.2 after fluid bolus. Mg 3.1. CXR: No focal infiltrate or effusion. Head CT: No acute intracranial hemorrhage or suspicious mass effect. Inflammatory sinus disease Abd/Pelvis CT: Suspected infectious/inflammatory colitis involving the distal transverse colon, descending colon, and sigmoid colon. No bowel obstruction. No abscess or free air. 1.5 cm probable cystic mass in the pancreatic head/neck. Consider follow-up MR/MRCP to further evaluate EKG: Sinus rhythm, LAD, LBBB Review of Systems Review of Systems: All systems reviewed & are unremarkable except as noted in HPI and below [facility] Social History Social History Smoking status: Never smoker Alcohol intake: never Substance use: never Do You Feel Safe in your Home?: Yes Lack of Transportation: No Lack of Food: Never True Current Housing: I Have Housing Concerned About Future Housing: No Difficulty Paying Gas/Electric Bills: No Difficulty Paying for Meds: No Currently Unemployed: No Education: High School Diploma/GED Difficulty w/ Childcare or Family Care: No Spiritual care concerns: No Meds Home Medications and Allergies Home Medications ?Medication ?Instructions ?Recorded ?Confirmed ?Type atorvastatin 80 mg tablet 80 mg PO QPM 09/27/24 09/27/24 History calcium 250 mg tablet 250 mg PO DAILY 09/27/24 09/27/24 History cholecalciferol (vitamin D3) 125 125 mcg PO DAILY 09/27/24 09/27/24 History mcg (5,000 unit) tablet lisinopril 10 mg tablet 10 mg PO DAILY 09/27/24 09/27/24 History magnesium 100 mg capsule 100 mg PO DAILY 09/27/24 09/27/24 History metoprolol succinate 25 mg 25 mg PO Q12H 09/27/24 09/27/24 History tablet,extended release 24 hr risedronate 150 mg tablet 150 mg PO MONTHLY 09/27/24 09/27/24 History Allergies Allergy/AdvReac Type Severity Reaction Status Date / Time Penicillins Allergy Unknown Unknown Verified 09/27/24 06:29 Vital Signs Vital Signs - 24 hr 09/26/24 21:56 09/26/24 23:19 09/26/24 23:20 Temperature 97.4 F L Pulse Rate 73 Respiratory Rate 16 Blood Pressure 93/48 L 138/106 H Pulse Oximetry 100 100 99 Oxygen Delivery Room Air 09/26/24 23:30 09/26/24 23:31 09/26/24 23:45 Temperature Pulse Rate Respiratory Rate Blood Pressure 105/52 L Pulse Oximetry 100 99 100 Oxygen Delivery 09/26/24 23:46 09/27/24 00:21 09/27/24 00:22 Temperature Pulse Rate 81 78 Respiratory Rate 16 14 Blood Pressure 109/60 121/55 L Pulse Oximetry 100 99 100 Oxygen Delivery 09/27/24 00:30 09/27/24 00:31 09/27/24 00:45 Temperature Pulse Rate 86 78 77 Respiratory Rate 21 H 18 15 Blood Pressure 129/78 Pulse Oximetry 95 100 100 Oxygen Delivery 09/27/24 00:46 09/27/24 01:00 09/27/24 01:01 Temperature Pulse Rate 84 83 82 Respiratory Rate 15 17 22 H Blood Pressure 125/81 121/59 L Pulse Oximetry 100 100 100 Oxygen Delivery 09/27/24 01:15 09/27/24 01:16 09/27/24 01:30 Temperature Pulse Rate 83 84 86 Respiratory Rate 19 16 12 Blood Pressure 117/57 L 126/61 Pulse Oximetry 100 100 100 Oxygen Delivery 09/27/24 01:31 09/27/24 01:46 09/27/24 02:01 Temperature Pulse Rate 85 80 86 Respiratory Rate 20 16 20 Blood Pressure Pulse Oximetry 100 100 Oxygen Delivery 09/27/24 02:15 09/27/24 02:17 09/27/24 05:58 Temperature 98.4 F Pulse Rate 87 87 84 Respiratory Rate 16 16 18 Blood Pressure 119/60 146/66 H Pulse Oximetry 97 96 99 Oxygen Delivery Exam Narrative: Gen - well appearing female in no acute respiratory distress who is nontoxic- appearing lying semi recumbent in bed HEENT - normocephalic. Atraumatic. Pupils equal round and reactive. Sclera clear and anicteric. Nares patent. Oropharynx was clear. No oral lesions. Moist mucous membranes. Neck - neck was supple. No dominant adenopathy, thyromegaly or masses. 2+ carotid upstrokes without bruits. Chest - lungs are clear to auscultation bilaterally. No wheezes or crackles. Breast exam was deferred. CV - heart was regular rate and rhythm. S1-S2. No murmurs gallops or rubs. Abd - abdomen was soft. Nontender. Nondistended. Positive bowel sounds. No organomegaly or masses. Ext - no clubbing, cyanosis or edema. 2+ DP pulses bilaterally. Neuro - patient is alert and oriented x4. Strength is 5/5 in both upper and lower extremities. Cranial nerves 2-12 are intact. Speech is clear. Psych - normal mood and affect. Patient is pleasant and cooperative. Skin - warm and dry. No rashes noted. H&P: Results Labs Labs: Short CBC 09/26/24 Range/Units 22:23 WBC 7.9 (4.5-10.0) K/mm3 Hgb 13.8 (12.0-15.0) g/dL Hct 40.6 (37.0-47.0) % Plt Count 197 (150-375) k/mm3 BMP 09/26/24 22:23 Sodium 138 Potassium 3.4 Chloride 106 Carbon Dioxide 22 BUN 18 H Creatinine 0.81 Glucose 122 H Calcium 9.5 Cardiac Enzymes 09/26/24 09/27/24 Range/Units 22:23 00:51 Troponin I < 0.012 < 0.012 (0.000-0.034) ng/mL Liver Function 09/26/24 Range/Units 22:23 Total Bilirubin 0.8 (0.2-1.3) mg/dL AST 49 H (14-36) U/L ALT 47 H (6-35) U/L Alkaline Phosphatase 46 (38-126) U/L Albumin 4.6 (3.5-5.1) g/dL Urine 09/26/24 Range/Units 22:39 Urine Color Dark yellow (Yellow) Urine Appearance Clear (Clear) Urine pH 6.5 (5.0-9.0) Ur Specific [place] 1.020 (1.001-1.035) Urine Protein 1+ H (Negative) mg/dL Urine Glucose (UA) Negative (Negative) mg/dL Assessment and Plan Assessment and plan (1) Colitis: Code(s): K52.9 - Noninfective gastroenteritis and colitis, unspecified Status: Acute Assessment and Plan: * Abdomen/pelvis CT: Suspected infectious/inflammatory colitis involving the distal transverse colon, descending colon, and sigmoid colon. No bowel obstruction. No abscess or free air. * Monitor vital signs, I&Os, track stool output, watch for bloody stools, neuro status and patient is a fall risk * Monitor serum electrolytes and CBC * Gentle IV fluid resuscitation * Flagyl 500 mg t.i.d. ceftriaxone q24 hr * Diet: Clear liquid * GI consultation * Stool culture, C diff, fecal calprotectin * Continue IV antibiotics PPI * Initiate dicyclomine 10 mg * Monitor signs for upper/lower GI bleed * Hold endoscopic eval at this time (2) Pancreatic mass: Code(s): K86.89 - Other specified diseases of pancreas Status: Acute Assessment and Plan: * Abdomen/pelvis CT: 1.5 cm probable cystic mass in the pancreatic head/neck. Consider follow-up MR/MRCP to further evaluate. * Family history of pancreatic cancer * GI following * MRCP ordered for further evaluation (3) Vasovagal syncope: Code(s): R55 - Syncope and collapse Status: Acute Assessment and Plan: * Syncopal episode occurred wall straining during bowel movement on day of arrival to ED. Patient states that she was trying to pass a bowel movement and became diaphoretic and had a witnessed syncopal episode. was present, states that patient did not fall to the floor or strike her head * Head CT: No acute intracranial hemorrhage or suspicious mass. Inflammatory sinus disease * Chest x-ray: No focal infiltrate or effusion. * EKG: Sinus rhythm, left bundle-branch * Cardiology consult * Likely vasovagal in nature * Monitor on tele, 30 day event monitor at discharge * Obtain TTE, TSH, and free T4 * Monitor electrolytes and daily labs * PT/OT (4) Hypertension: Code(s): I10 - Essential (primary) hypertension Status: Acute Assessment and Plan: Patient's blood pressure was reviewed on 09/27 Blood pressure remains well controlled. Will continue current medications. . Stable (5) Elevated liver transaminase level: Code(s): R74.01 - Elevation of levels of liver transaminase levels Status: Acute Assessment and Plan: * In ED: AST/ALT= 49/49 * Etiology could be secondary to underlying inflammatory/infectious colitis or concerning mass * Monitor daily LFTs (6) Hyperlipidemia: Code(s): E78.5 - Hyperlipidemia, unspecified Status: Acute Assessment and Plan: * Continue atorvastatin 80 mg Plan DVT prophylaxis: [facility] Quality VTE Prophylaxis VTE prophylaxis: mechanical ordered
[2024-09-27] MEDS: PANTOPRAZOLE SODIUM IV 40 MG VIAL IV PUSH (08:55)
--- NOTE | 2024-09-27 09:40 | P.CONGI_ITS ---
Assessment and Plan Assessment and plan (1) Colitis: Code(s): K52.9 - Noninfective gastroenteritis and colitis, unspecified Status: Acute (2) Pancreatic mass: Code(s): K86.89 - Other specified diseases of pancreas Status: Acute (3) Elevated liver transaminase level: Code(s): R74.01 - Elevation of levels of liver transaminase levels Status: Acute (4) Change in bowel habit: Code(s): R19.4 - Change in bowel habit Status: Acute (5) Chronic constipation: Code(s): K59.09 - Other constipation Status: Acute (6) Family history of pancreatic cancer: Code(s): Z80.0 - Family history of malignant neoplasm of digestive organs Status: Acute Plan 1. Colitis/change in bowel habits/chronic constipation/possible melena: Per patient last colonoscopy performed < 5 years ago in [place] was unsuccessful as they were unable to advance even a pediatric scope. Patient states that she had a barium enema following her attempted colonoscopy which she states was normal. CT showed suspected infectious/inflammatory colitis involving distal transverse colon, descending colon, and sigmoid colon. Patient states that a few days before her hospitalization she had been having stools that were looser than normal but she denies any rectal bleeding. She admits to darker colored stools over the past few weeks but she denies that they are tarry or malodorous. She states that if she eats corn or beans her dark colored stools typically resolved. She typically has a history of chronic constipation following her anterior approach back surgery in the 60s at which time she was stated to have a ?kink in her intestine?. She typically has a bowel movement every 3 days with a high-fiber diet and MiraLax as needed but has never required the use of a daily medication for management. Family history negative for IBD. DDX: Acute infectious/inflammatory process versus ischemic versus IBD * Will check fecal calprotectin * Stool culture and C diff currently pending * Continue IV antibiotics * Continue PPI * Start dicyclomine 10 mg 1-2 times daily for abdominal cramping. Decrease frequency if she starts having constipation * Monitor for signs of upper or lower GI bleeding * Will adjust acute infectious/inflammatory process and hold off on endoscopic evaluation at this time 2. Pancreatic mass/family history of pancreatic cancer-mother: CT showed 1.5 cm probable cystic mass in the pancreatic head/neck. Lipase 190. Patients mother had pancreatic cancer. * MRCP ordered to further evaluate 3. Elevated liver transaminase: Patient with mildly elevated and stable liver transaminases since December of 2023. No prior bilirubin or alk-phos elevation or history of liver disease. Labs at time of hospital presentation showed total bilirubin 0.8, AST 49, ALT 47, alkaline phosphatase 46. * Acute elevation may be secondary to acute infectious/inflammatory process versus IBD vs pancreatic etiology if mass is of concerning etiology * Continue monitoring LFTs Thank you very much for allowing me to share in the care of this very nice patient. This report may have been done utilizing a voice recognition system. Attempts have been made to correct errors. However, there may be uncorrected grammatical, spelling, and recognition errors present. GI Consult Note Consult date/time: 09/27/24 09:40 Reason for consult: Colitis HPI: Belen Pineda is a 79 year old female with PMSH of HLD, HTN and osteoporosis. She presented to the emergency room yesterday with complaints of abdominal pain and syncopal episode. GI has been consulted for colitis. Patient was seen with her Franko at her bedside throughout the entire visit. Patient is living in [place] but currently back in [place] visiting friends and family. Patient states that for the past few days she has been feeling a little off. She states that she had been very tired and having looser than normal bowel movements. Patient states she had back surgery in the 60s and had a postop complication of a ?kinked intestine? and since then has been dealing with constipation. She typically has a bowel movement every 3 days with occasional straining. She has been using a high-fiber diet and MiraLax as needed to control bowel frequency. She has does state that occasionally she will have diarrhea but it sounds like it typically starts with a formed stool and then progresses to diarrhea after she had went multiple days without a bowel movement. She states that recently she has been having darker colored stools but states that if she eats corn or beans this dark color resolves. She has been experiencing reflux which is new for her over the past 2 weeks but states that this can sometimes occur when she is under stress or having increased anxiety. Admits to bilateral lower quadrant pain that started acutely prior to her ER visit. She states that the pain since admission is more crampy in nature. She had episodes of nausea and vomiting in the ambulance and in the ER but denies any further episodes since admission. She denies any abdominal bloating, odynophagia, dysphagia, regurgitation, early satiety, appetite loss, unexplained weight loss, or hematochezia. She is on aspirin 81 mg daily but denies any other NSAID or anticoagulant use. She is a nondrinker nonsmoker and denies marijuana use. Family history includes her mother was diagnosed with pancreatic cancer. No family history of IBD. ENDOSCOPY HISTORY: EGD: Last EGD performed < 5 years ago and per patient was normal COLONOSCOPY: Per patient she had an unsuccessful colonoscopy < 5 years ago performed in [place]. Even with the using a pediatric scope they were unable to pass. Patient states that she then had a barium enema which was normal LABS AND STOOL STUDIES: Labs 09/26/2024: Sodium 138, potassium 3.4, BUN 18, creatinine 0.81, GFR >60, calcium 9.5 WBC 8, Hgb 14, Hct 41, MCV 93, platelets 197, INR 1.1 Total bilirubin 0.8, AST 49, ALT 47, Alkaline Phos 46, albumin 4.6, lipase 190 Lactic acid 2.7-->2.2 and magnesium 3.1 IMAGING: CT abd/pelvis w/contrast 09/27/2024: Impression: Suspected infectious/inflammatory colitis involving the distal transverse colon, descending colon, and sigmoid colon. No bowel obstruction. No abscess or free air. 1.5 cm probable cystic mass in the pancreatic head/neck. Consider follow-up MR/MRCP to further evaluate. Review of Systems 2 Constitutional: Constitutional: Reports as per HPI, Reports body ache(s) and Reports fatigue ENT: Reports as per HPI Cardiovascular: Cardiovascular: Reports as per HPI, Denies chest pain and Denies dyspnea Respiratory: Respiratory: Denies cough and Denies dyspnea Gastrointestinal: Gastrointestinal: Reports as per HPI Musculoskeletal: Musculoskeletal: Reports as per HPI Integumentary/Breasts: Skin/Breast: Reports as per HPI Psychiatric: Psychiatric: Reports as per HPI Endocrine: Endocrine: Reports no additional endocrine complaints Hematologic/Lymphatic: Hematologic/Lymphatic: Reports no additional hematologic/lymphatic complaints [facility] Social History Social History Smoking status: Never smoker Alcohol intake: never Substance use: never Do You Feel Safe in your Home?: Yes Lack of Transportation: No Lack of Food: Never True Current Housing: I Have Housing Concerned About Future Housing: No Difficulty Paying Gas/Electric Bills: No Difficulty Paying for Meds: No Currently Unemployed: No Education: High School Diploma/GED Difficulty w/ Childcare or Family Care: No Spiritual care concerns: No Meds Home Medications and Allergies Home Medications ?Medication ?Instructions ?Recorded ?Confirmed ?Type atorvastatin 80 mg tablet 80 mg PO QPM 09/27/24 09/27/24 History calcium 250 mg tablet 250 mg PO DAILY 09/27/24 09/27/24 History cholecalciferol (vitamin D3) 125 125 mcg PO DAILY 09/27/24 09/27/24 History mcg (5,000 unit) tablet lisinopril 10 mg tablet 10 mg PO DAILY 09/27/24 09/27/24 History magnesium 100 mg capsule 100 mg PO DAILY 09/27/24 09/27/24 History metoprolol succinate 25 mg 25 mg PO Q12H 09/27/24 09/27/24 History tablet,extended release 24 hr risedronate 150 mg tablet 150 mg PO MONTHLY 09/27/24 09/27/24 History Allergies Allergy/AdvReac Type Severity Reaction Status Date / Time Penicillins Allergy Unknown Unknown Verified 09/27/24 06:29 Vital Signs Vital Signs - 24 hr 09/26/24 21:56 09/26/24 23:19 09/26/24 23:20 Temperature 97.4 F L Pulse Rate 73 Respiratory Rate 16 Blood Pressure 93/48 L 138/106 H Pulse Oximetry 100 100 99 Oxygen Delivery Room Air 09/26/24 23:30 09/26/24 23:31 09/26/24 23:45 Temperature Pulse Rate Respiratory Rate Blood Pressure 105/52 L Pulse Oximetry 100 99 100 Oxygen Delivery 09/26/24 23:46 09/27/24 00:21 09/27/24 00:22 Temperature Pulse Rate 81 78 Respiratory Rate 16 14 Blood Pressure 109/60 121/55 L Pulse Oximetry 100 99 100 Oxygen Delivery 09/27/24 00:30 09/27/24 00:31 09/27/24 00:45 Temperature Pulse Rate 86 78 77 Respiratory Rate 21 H 18 15 Blood Pressure 129/78 Pulse Oximetry 95 100 100 Oxygen Delivery 09/27/24 00:46 09/27/24 01:00 09/27/24 01:01 Temperature Pulse Rate 84 83 82 Respiratory Rate 15 17 22 H Blood Pressure 125/81 121/59 L Pulse Oximetry 100 100 100 Oxygen Delivery 09/27/24 01:15 09/27/24 01:16 09/27/24 01:30 Temperature Pulse Rate 83 84 86 Respiratory Rate 19 16 12 Blood Pressure 117/57 L 126/61 Pulse Oximetry 100 100 100 Oxygen Delivery 09/27/24 01:31 09/27/24 01:46 09/27/24 02:01 Temperature Pulse Rate 85 80 86 Respiratory Rate 20 16 20 Blood Pressure Pulse Oximetry 100 100 Oxygen Delivery 09/27/24 02:15 09/27/24 02:17 09/27/24 05:58 Temperature 98.4 F Pulse Rate 87 87 84 Respiratory Rate 16 16 18 Blood Pressure 119/60 146/66 H Pulse Oximetry 97 96 99 Oxygen Delivery 09/27/24 09:04 Temperature Pulse Rate Respiratory Rate Blood Pressure Pulse Oximetry 99 Oxygen Delivery Room Air Exam 2 Const: General: cooperative, healthy appearing, comfortable, no acute distress and well developed Orientation/consciousness: oriented to person, oriented to place, oriented to time and patient oriented x3 HENMT: Head: normal to inspection, normocephalic and atraumatic Mouth: Yes Normal oral and palatal mucosa present and Yes moist mucous membranes Eyes: General: appearance normal, both eyes and all related structures C onjunctivae: conjunctivae normal Sclera: sclerae normal Pupils: Equal, round and reactive pupils present Neck: Neck: normal visual inspection Chest: Chest palpation & inspection: normal inspection of the chest Resp: Effort & Inspection: normal respiratory effort and able to speak in complete sentences Auscultation: clear to auscultation bilaterally Cardio: Jugular venous distension: no JVD Rate: regular rate Rhythm: r egular rhythm Heart sounds: S1 normal heart sound present and S2 normal heart sound present GI: Inspection: normal to inspection GI Palp: Yes Soft to palpation, Yes Tenderness to palpation present (GI) (lower abdominal pain with palpation) and Yes No hepatosplenomegaly present Auscultation: normal bowel sounds Rectal Exam: deferred Skin: General skin exam: normal color and no rashes or lesions noted Neuro: General: oriented to person, oriented to place, oriented to time and patient oriented x3 Cranial nerves: Yes Equal, round and reactive pupils present Speech: normal speech Extrem: General: normal to inspection and no clubbing, cyanosis or edema Psych: Appearance: grossly normal and well kempt Affect: normal affect Results Labs 09/26/24 22:23 09/26/24 22:23 Labs: Short CBC 09/26/24 Range/Units 22:23 WBC 7.9 (4.5-10.0) K/mm3 Hgb 13.8 (12.0-15.0) g/dL Hct 40.6 (37.0-47.0) % Plt Count 197 (150-375) k/mm3 BMP 09/26/24 22:23 Sodium 138 Potassium 3.4 Chloride 106 Carbon Dioxide 22 BUN 18 H Creatinine 0.81 Glucose 122 H Calcium 9.5 Cardiac Enzymes 09/26/24 09/27/24 Range/Units 22:23 00:51 Troponin I < 0.012 < 0.012 (0.000-0.034) ng/mL Liver Function 09/26/24 Range/Units 22:23 Total Bilirubin 0.8 (0.2-1.3) mg/dL AST 49 H (14-36) U/L ALT 47 H (6-35) U/L Alkaline Phosphatase 46 (38-126) U/L Albumin 4.6 (3.5-5.1) g/dL Urine 09/26/24 Range/Units 22:39 Urine Color Dark yellow (Yellow) Urine Appearance Clear (Clear) Urine pH 6.5 (5.0-9.0) Ur Specific Snyder 1.020 (1.001-1.035) Urine Protein 1+ H (Negative) mg/dL Urine Glucose (UA) Negative (Negative) mg/dL
[2024-09-27] MEDS: DICYCLOMINE HCL 10 MG CAPSULE PO ×2 (11:23→17:18)
[2024-09-27 13:51] LABS: Toxigenic C. Diff NEGATIVE (NEGATIVE)
[2024-09-27 14:13] LABS: Basophils Percent Auto 0.2 % (0.2-1.2); Hematocrit 34.3 % (37.0-47.0); Hemoglobin 11.6 g/dL (12.0-15.0); Immature Granulocyte Absolute 0.05 K/mm3 (0.00-0.031); Immature Granulocyte Percent A 0.4 % (0-0.5); Lymphocytes Absolute Auto 1.64 K/mm3 (0.9-3.2); Lymphocytes Percent Auto 12.9 % (18.3-44.2); Mean Corpuscular HGB Conc 33.8 g/dl (32-36); Mean Corpuscular Hemoglobin 32.3 pg (26-34); Mean Corpuscular Volume 95.5 fl (80-100); Mean Platelet Volume 9.3 fl (7.4-10.4); Monocytes Absolute Auto 0.9 K/mm3 (0.1-0.6); Monocytes Percent Auto 6.9 % (2.6-8.5); Neutrophils Absolute Auto 10.1 K/mm3 (1.3-6.7); Neutrophils Percent Auto 79.6 % (45.5-73.1); Platelet Count Result 144 k/mm3 (150-375); Red Blood Count 3.59 M/mm3 (4.2-5.4); Red Cell Distribution Width 12.2 % (11.5-14.5); White Blood Count 12.7 K/mm3 (4.5-10.0)
[2024-09-27 14:29] LABS: Lactic Acid Reflex 1.2 mmol/L (0.7-2.0)
[2024-09-27 14:34] LABS: Alanine Aminotransferase 32 U/L (6-35); Albumin Level 3.4 g/dL (3.5-5.1); Alkaline Phosphatase 39 U/L (38-126); Anion Gap 7 mmol/L (4-12); Aspartate Amino Transferase 34 U/L (14-36); Bilirubin,Total 0.9 mg/dL (0.2-1.3); Blood Urea Nitrogen 14 mg/dL (7-17); Calcium 7.9 mg/dL (8.4-10.2); Carbon Dioxide 21 mmol/L (22-30); Chloride 110 mmol/L (98-107); Estimated CRCL calculation 53 ml/min; Estimated Glomerular Filt Rate > 60; Glucose 106 mg/dL (65-110); Potassium 4.1 mmol/L (3.4-5.0); Sodium 138 mmol/L (137-145)
--- NOTE | 2024-09-27 14:49 | P.CONCA_ITS ---
Assessment and Plan Assessment and plan (1) Vasovagal syncope: Code(s): R55 - Syncope and collapse Status: Acute Assessment and Plan: -from history it appears that this syncopal episode is vasovagal in nature (occurred while straining during bowel movement) -troponin negative, no chest pain -monitor on telemetry to rule out any Jose or tachy arrhythmias -30 day event monitor at discharge -check TSH, free T4 -obtain TTE -replace electrolytes to keep potassium greater than 4 and magnesium greater than 2 -management of other medical problems per primary team (2) Hypertension: Code(s): I10 - Essential (primary) hypertension Status: Acute Assessment and Plan: -blood pressure is controlled -continue lisinopril and metoprolol at home dose -continue statin (3) Colitis: Code(s): K52.9 - Noninfective gastroenteritis and colitis, unspecified Status: Acute Assessment and Plan: -suspect her abdominal pain, nausea, emesis is secondary to this colitis -management per primary team History of Present Illness History of Present Illness Consult date/time: 09/27/24 14:49 Reason For Visit: Colitis, Syncope Narrative: 79-year-old female with a past medical history of HTN, irritable bowel syndrome: And osteoporosis presents with chief complaints of syncopal episode that occurred today. She also reports abdominal pain, nausea, emesis. She states she has chronic history of constipation and bowel movements every 3 days while on high-fiber diet along with regular MiraLax. She states that she has been constipated since 1960s when she had a back surgery. Patient states that today she got out of bed and was walking to the bathroom when she felt dizzy and lightheaded. She called her who came and helped her to the bathroom. She was on the toilet and straining very hard to have a bowel movement when she slumped over and lost consciousness for about 5 seconds. Her called her name name several times and she regained consciousness. Patient did not fall down or hit her head. No seizure-like activity. No bowel or bladder incontinence. She did not bite her tongue. She had no confusion either before or after the episode. No similar episodes in the past. She reports abdominal pain for the past 3 days which is crampy. She reports some nausea and emesis today on the way to the ER which has since resolved. No chest pain, shortness of breath, dizziness, lightheadedness, palpitations, recent weight gain, leg swelling, fever, chills, headache, weakness of any part of the body, seizure- like activity. She does not smoke. No personal or family history of premature CAD. Workup: WBC: 12.7 Hemoglobin: 11.2 Troponin: Negative x2 EKG: Sinus rhythm, LAD, LBBB CXR: No focal infiltrate or effusion. Head CT: No acute intracranial hemorrhage or suspicious mass effect. Inflammatory sinus disease. Abd/Pelvis CT: Suspected infectious/inflammatory colitis involving the distal transverse colon, descending colon, and sigmoid colon. No bowel obstruction. No abscess or free air. 1.5 cm probable cystic mass in the pancreatic head/neck. Consider follow-up MR/MRCP to further evaluate Review of Systems 2 Review of Systems: A complete review of systems was performed negative other than those mentioned in [facility] Social History Social History Smoking status: Never smoker Alcohol intake: never Substance use: never Do You Feel Safe in your Home?: Yes Lack of Transportation: No Lack of Food: Never True Current Housing: I Have Housing Concerned About Future Housing: No Difficulty Paying Gas/Electric Bills: No Difficulty Paying for Meds: No Currently Unemployed: No Education: High School Diploma/GED Difficulty w/ Childcare or Family Care: No Spiritual care concerns: No Meds Home Medications and Allergies Home Medications ?Medication ?Instructions ?Recorded ?Confirmed ?Type atorvastatin 80 mg tablet 80 mg PO QPM 09/27/24 09/27/24 History calcium 250 mg tablet 250 mg PO DAILY 09/27/24 09/27/24 History cholecalciferol (vitamin D3) 125 125 mcg PO DAILY 09/27/24 09/27/24 History mcg (5,000 unit) tablet lisinopril 10 mg tablet 10 mg PO DAILY 09/27/24 09/27/24 History magnesium 100 mg capsule 100 mg PO DAILY 09/27/24 09/27/24 History metoprolol succinate 25 mg 25 mg PO Q12H 09/27/24 09/27/24 History tablet,extended release 24 hr risedronate 150 mg tablet 150 mg PO MONTHLY 09/27/24 09/27/24 History Allergies Allergy/AdvReac Type Severity Reaction Status Date / Time Penicillins Allergy Unknown Unknown Verified 09/27/24 06:29 Vital Signs Vital Signs - 24 hr 09/26/24 21:56 09/26/24 23:19 09/26/24 23:20 Temperature 36.3 C L Pulse Rate 73 Respiratory Rate 16 Blood Pressure 93/48 L 138/106 H Pulse Oximetry 100 100 99 Oxygen Delivery Room Air 09/26/24 23:30 09/26/24 23:31 09/26/24 23:45 Temperature Pulse Rate Respiratory Rate Blood Pressure 105/52 L Pulse Oximetry 100 99 100 Oxygen Delivery 09/26/24 23:46 09/27/24 00:21 09/27/24 00:22 Temperature Pulse Rate 81 78 Respiratory Rate 16 14 Blood Pressure 109/60 121/55 L Pulse Oximetry 100 99 100 Oxygen Delivery 09/27/24 00:30 09/27/24 00:31 09/27/24 00:45 Temperature Pulse Rate 86 78 77 Respiratory Rate 21 H 18 15 Blood Pressure 129/78 Pulse Oximetry 95 100 100 Oxygen Delivery 09/27/24 00:46 09/27/24 01:00 09/27/24 01:01 Temperature Pulse Rate 84 83 82 Respiratory Rate 15 17 22 H Blood Pressure 125/81 121/59 L Pulse Oximetry 100 100 100 Oxygen Delivery 09/27/24 01:15 09/27/24 01:16 09/27/24 01:30 Temperature Pulse Rate 83 84 86 Respiratory Rate 19 16 12 Blood Pressure 117/57 L 126/61 Pulse Oximetry 100 100 100 Oxygen Delivery 09/27/24 01:31 09/27/24 01:46 09/27/24 02:01 Temperature Pulse Rate 85 80 86 Respiratory Rate 20 16 20 Blood Pressure Pulse Oximetry 100 100 Oxygen Delivery 09/27/24 02:15 09/27/24 02:17 09/27/24 05:58 Temperature 36.9 C Pulse Rate 87 87 84 Respiratory Rate 16 16 18 Blood Pressure 119/60 146/66 H Pulse Oximetry 97 96 99 Oxygen Delivery 09/27/24 08:00 09/27/24 09:04 Temperature Pulse Rate Respiratory Rate Blood Pressure Pulse Oximetry 99 Oxygen Delivery Room Air Room Air Exam 2 Narrative: General: Alert oriented x3, no acute distress Neck: Supple, no JVD Chest: Bilaterally clear to auscultation, no rales or rhonchi Cardiac: S1, S2 +, regular rate, regular rhythm, no murmurs or rubs Extremities: No pedal edema, no skin rash Neurologic: Alert and oriented x3, no focal neurological deficits Results Labs and Meds 09/27/24 14:08 09/27/24 14:08 Lab results: Cardiac Enzymes 09/26/24 09/27/24 09/27/24 Range/Units 22:23 00:51 14:08 AST 49 H 34 (14-36) U/L Troponin I < 0.012 < 0.012 (0.000-0.034) ng/mL Coagulation 09/26/24 Range/Units 22:23 PT 13.9 (11.1-14.7) Seconds APTT 24.1 (22.3-36.8) Seconds CBC 09/26/24 09/27/24 Range/Units 22:23 14:08 WBC 7.9 12.7 H (4.5-10.0) K/mm3 RBC 4.35 3.59 L (4.2-5.4) M/mm3 Hgb 13.8 11.6 L (12.0-15.0) g/dL Hct 40.6 34.3 L (37.0-47.0) % Plt Count 197 144 L (150-375) k/mm3 Lymph # (Auto) 3.80 H 1.64 (0.9-3.2) K/mm3 [place] # (Auto) 0.3 0.9 H (0.1-0.6) K/mm3 Eos # (Auto) 0.3 0.0 (0-0.3) K/mm3 Baso # (Auto) 0.1 0.0 (0.0-0.1) K/mm3 Comprehensive Metabolic Panel 09/26/24 09/27/24 Range/Units 22:23 14:08 Sodium 138 138 (137-145) mmol/L Potassium 3.4 4.1 (3.4-5.0) mmol/L Chloride 106 110 H (98-107) mmol/L Carbon Dioxide 22 21 L (22-30) mmol/L BUN 18 H 14 (7-17) mg/dL Creatinine 0.81 0.62 L (0.7-1.0) mg/dL Glucose 122 H 106 (65-110) mg/dL Calcium 9.5 7.9 L (8.4-10.2) mg/dL AST 49 H 34 (14-36) U/L ALT 47 H 32 (6-35) U/L Alkaline Phosphatase 46 39 (38-126) U/L Total Protein 7.6 6.0 L (6.3-8.2) g/dL Albumin 4.6 3.4 L (3.5-5.1) g/dL Intake and Output 09/26/24 09/27/24 09/27/24 23:59 07:59 15:59 Intake Total 2000 150 Output Total 75 Balance -75 1999 150 Intake: IV 2000 150 Sodium Chloride 0.9% IV 1,000 2000 ml @ 999 mls/hr IV CONT .Q1H1M ST[facility] Rx#:[id number] cefTRIAXone 1 GM/NS 50 ML 1 gm 50 In 50 ml @ 100 mls/hr IVPB Q24H [facility] Rx#:[id number] metroNIDAZOLE 500 MG/ISO 100ML 100 500 mg In 100 ml @ 100 mls/hr IVPB Q8HR [facility] Rx#:[id number] Output: Urine 75 Other: # Unmeasured Voids 1 Number of Bowel Movements Today 4 Patient Weight 09/27/24 23:59 Weight 66 kg
[2024-09-27] MEDS: ATORVASTATIN 40 MG TABLET 80 MG PO (17:18)
[2024-09-27] MEDS: METOPROLOL SUCCINATE EXT REL 25 MG TABCR PO (22:24)
[2024-09-28] VITALS (7 sets, daily range): BP systolic 105–118; BP diastolic 48–50; PULSE 60–83; RESP 16–18; TEMP 36.5–36.9; O2SAT 94–95
--- NOTE | 2024-09-28 | ECHO_ITS ---
Patient Info Name: Belen Pineda Age: 79 years : 1945 Gender: Female Ht: 64 in Wt: 145 lbs BSA: 1.73 m2 HR: 94 bpm BP: 146 / 66 mmHg Heart Rhythm: Sinus Rhythm Technical Quality: Good Exam Date: 09/28/2024 9:15 AM Patient Status: I Admit Date: 09/28/2024 Exam Type: CA echo doppler color flow Complete two-dimensional, color flow and Doppler transthoracic echocardiogram is performed. Staff Referring Physician: Marina Barba Manager Service Desk: Aliza Cantrell Attending Provider: Lexie Peterson DO Summary 1. Complete two-dimensional, color flow and Doppler transthoracic echocardiogram is performed. 2. Normal left and right ventricular size and systolic contractility. 3. Mild sclerosis of the aortic valve with well maintained leaflet excursion. 4. Small amount of mitral annular calcium. Left Ventricle Left ventricular chamber dimension is normal. Left ventricular systolic function is normal, estimated at 60-65. The left ventricular diastolic function is normal. Right Ventricle Right ventricular chamber dimension is normal. Left Atria Left atrial chamber dimension is normal. Right Atria Right atrial chamber dimension is normal. Aortic Valve The aortic valve is trileaflet. There is mild aortic valve sclerosis. Pulmonic Valve The pulmonic valve is normal. Mitral Valve The mitral valve has normal leaflets. The mitral valve annulus is mildly calcified. Tricuspid Valve The tricuspid valve leaflets are normal. Pericardium/Pleural The pericardium appears normal. Aorta The aortic root size at the sinus of Valsalva is normal. Left Ventricular Outflow Tract Name Value Normal LVOT 2D LVOT Diameter 2.0 cm LVOT Doppler LVOT Peak Velocity 119 cm/s LVOT Peak Gradient 5 mmHg LVOT Mean Gradient 3 mmHg LVOT VTI 24 cm LVOT VTI/AV VTI Ratio 0.5 LVOT Stroke Volume 74 ml LVOT CO 10.7 l/min LVOT CI 6.2 l/min/m2 Pulmonic Valve Name Value Normal RVOT Doppler RVOT Peak Velocity 89 cm/s RVOT Peak Gradient 3 mmHg PV Doppler PV Peak Velocity 153 cm/s PV Peak Gradient 9 mmHg Mitral Valve Name Value Normal MV Diastolic Function MV E Peak Velocity 96 cm/s MV A Peak Velocity 104 cm/s MV E/A 0.9 MV Decel Time (PW) 217 ms MV Annular TDI MV E/e' (Septal) 9.7 MV E/e' (Lateral) 11.3 MV E/e' (Average) 10.5 Aortic Valve Name Value Normal AV Doppler AV Peak Velocity 221 cm/s AV Peak Gradient 17 mmHg AV Mean Gradient 9 mmHg AV VTI 48 cm AV Area (Cont Eq VTI) 1.6 cm2 >=3.0 AV Area (Cont Eq Ronald) 1.6 cm2 AV DI (Ronald) 0.54 AV Regurgitation 2D LVOT Area 3.1 cm2 Ventricles Name Value Normal LV Dimensions 2D/MM IVS Diastolic Thickness (2D) 1.0 cm 0.6-1.0 LVID Diastole (2D) 4.3 cm 3.8-5.2 LVIW Diastolic Thickness (2D) 1.1 cm 0.6-0.9 LVID Systole (2D) 2.9 cm 2.2-3.5 LVOT Diameter 2.0 cm LV Mass (2D Cubed) 148.51 g 67.00-162.00 LV Mass Index (2D Cubed) 86 g/m2 43-95 Relative Wall Thickness (2D) 0.49 <=0.42 LV Fractional Shortening/Ejection Fraction 2D/MM LV Fractional Shortening (2D) 33 % 27-45 LV EF (2D Teichholz) 62 % LV Diastolic Volume (4C MOD) 65 ml LV EF (4C MOD) 50 % LV Diastolic Volume (2C MOD) 86 ml LV EF (2C MOD) 60 % LV Diastolic Volume (BP MOD) 77 ml 46-106 LV Diastolic Volume Index (BP MOD) 44 ml/m2 29-61 LV Systolic Volume (BP MOD) 34 ml 14-42 LV Systolic Volume Index (BP MOD) 20 ml/m2 8-24 LV EF (BP MOD) 55 % 54-74 LV Diastolic Length (4C) 7.3 cm LV Systolic Length (4C) 6.2 cm LV Stroke Volume (4C MOD) 33 ml Atria Name Value Normal LA Dimensions LA Volume (4C A-L) 40 ml LA Volume (BP A-L) 32 ml RA Dimensions RA Systolic Major [place] Length (4C) 4.4 cm 2.2-2.8 RA Area (4C) 10.2 cm2 <=18.0 Report Signatures
[2024-09-28] MEDS: SODIUM CHLORIDE 0.9% IV 1,000 ML 125 ML IV CONT ×2 (01:25→17:00)
[2024-09-28] MEDS: metroNIDAZOLE 500 MG/ISO 100ML 500 MG/100 ML BAG 100 MG IVPB ×3 (05:34→21:14)
[2024-09-28] MEDS: MORPHINE SULFATE (*CRX) 4 MG/ML INJ IV PUSH ×2 (05:36→16:58)
[2024-09-28 06:26] LABS: Basophils Percent Auto 0.3 % (0.2-1.2); Eosinophils Absolute Auto 0.1 K/mm3 (0-0.3); Eosinophils Percent Auto 0.7 % (0-4.4); Hematocrit 32.6 % (37.0-47.0); Immature Granulocyte Absolute 0.07 K/mm3 (0.00-0.031); Immature Granulocyte Percent A 0.5 % (0-0.5); Lymphocytes Absolute Auto 1.53 K/mm3 (0.9-3.2); Lymphocytes Percent Auto 11.7 % (18.3-44.2); Mean Corpuscular HGB Conc 33.7 g/dl (32-36); Mean Corpuscular Hemoglobin 32.6 pg (26-34); Mean Corpuscular Volume 96.7 fl (80-100); Mean Platelet Volume 9.6 fl (7.4-10.4); Monocytes Absolute Auto 0.9 K/mm3 (0.1-0.6); Monocytes Percent Auto 6.6 % (2.6-8.5); Neutrophils Absolute Auto 10.5 K/mm3 (1.3-6.7); Neutrophils Percent Auto 80.2 % (45.5-73.1); Platelet Count Result 149 k/mm3 (150-375); Red Blood Count 3.37 M/mm3 (4.2-5.4); Red Cell Distribution Width 12.6 % (11.5-14.5); White Blood Count 13.1 K/mm3 (4.5-10.0)
[2024-09-28 06:35] LABS: Lactic Acid Reflex 0.9 mmol/L (0.7-2.0)
[2024-09-28 06:41] LABS: Alanine Aminotransferase 29 U/L (6-35); Albumin Level 3.3 g/dL (3.5-5.1); Alkaline Phosphatase 35 U/L (38-126); Anion Gap 6 mmol/L (4-12); Aspartate Amino Transferase 34 U/L (14-36); Bilirubin,Total 1.2 mg/dL (0.2-1.3); Blood Urea Nitrogen 9 mg/dL (7-17); Calcium 7.8 mg/dL (8.4-10.2); Carbon Dioxide 22 mmol/L (22-30); Chloride 107 mmol/L (98-107); Estimated CRCL calculation 59 ml/min; Estimated Glomerular Filt Rate > 60; Glucose 106 mg/dL (65-110); Potassium 3.5 mmol/L (3.4-5.0); Sodium 135 mmol/L (137-145); Total Protein 5.9 g/dL (6.3-8.2)
--- NOTE | 2024-09-28 08:17 | P.PNIM_ITS ---
Progress Note: A&P Assessment and Plan (1) Colitis: Code(s): K52.9 - Noninfective gastroenteritis and colitis, unspecified Status: Acute Assessment and Plan: * Abdomen/pelvis CT: Suspected infectious/inflammatory colitis involving the distal transverse colon, descending colon, and sigmoid colon. No bowel obstruction. No abscess or free air. * Monitor vital signs, I&Os, track stool output, watch for bloody stools, neuro status and patient is a fall risk * Monitor serum electrolytes and CBC * Gentle IV fluid resuscitation * Flagyl 500 mg t.i.d. ceftriaxone q24 hr * Diet: Clear liquid * GI consultation * Stool culture, C diff, fecal calprotectin * Continue IV antibiotics PPI * Initiate dicyclomine 10 mg * Monitor signs for upper/lower GI bleed * Hold endoscopic eval at this time * Guarding still present but symptoms greatly improved today * Denies N/v/d today (2) Pancreatic mass: Code(s): K86.89 - Other specified diseases of pancreas Status: Acute Assessment and Plan: * Abdomen/pelvis CT: 1.5 cm probable cystic mass in the pancreatic head/neck. Consider follow-up MR/MRCP to further evaluate. * Family history of pancreatic cancer * GI following * MRCP ordered for further evaluation * MRCP:1.6 x 1.2 cm cystic lesion at the head of the pancreas with a few subcentimeter cystic lesions at the tail the pancreas which appear to demonstrate communication with the main pancreatic duct favoring either ps eudocysts and dilated pancreatic side branches related to prior acute pancreatitis or intraductal papillary mucinous neoplasm (IPMN) versus less likely mucinous cystic neoplasm (MCN), and the less common serous cystadenoma and neuroendocrine tumor. Correlate for history of pancreatitis. Consider 2 year follow-up pre and postcontrast MRI. * Patient to follow-up with her PCP in the outpatient setting, no further intervention or workup indicated at this time (3) Vasovagal syncope: Code(s): R55 - Syncope and collapse Status: Acute Assessment and Plan: * Syncopal episode occurred wall straining during bowel movement on day of arrival to ED. Patient states that she was trying to pass a bowel movement and became diaphoretic and had a witnessed syncopal episode. was present, states that patient did not fall to the floor or strike her head * Head CT: No acute intracranial hemorrhage or suspicious mass. Inflammatory sinus disease * Chest x-ray: No focal infiltrate or effusion. * EKG: Sinus rhythm, left bundle-branch * Cardiology consult * Likely vasovagal in nature * Monitor on tele, 30 day event monitor at discharge * Obtain TTE, TSH, and free T4 * Monitor electrolytes and daily labs * PT/OT * Stable today, no episodes of dizziness or syncope * ECHO: Normal left and right ventricular size and systolic contractility, mild sclerosis of aortic valve and well-maintained leaflet excursion. Small amount of mitral annular calcium (4) Hypertension: Code(s): I10 - Essential (primary) hypertension Status: Acute Assessment and Plan: Patient's blood pressure was reviewed on 09/27 Blood pressure remains well controlled. Will continue current medications. . Stable (5) Elevated liver transaminase level: Code(s): R74.01 - Elevation of levels of liver transaminase levels Status: Acute Assessment and Plan: * In ED: AST/ALT= 49/49 * Etiology could be secondary to underlying inflammatory/infectious colitis or concerning mass * Monitor daily LFTs * Resolved (6) Hyperlipidemia: Code(s): E78.5 - Hyperlipidemia, unspecified Status: Acute Assessment and Plan: * Continue atorvastatin 80 mg Plan DVT prophylaxis: SCDs Subjective Date/time seen: 09/28/24 08:17 Interval history: 79-year-old female with a past medical history of HTN and osteoporosis who presents to the hospital for abdominal pain and a syncopal episode that occurred on the day of admission. 09/28/2024 Patient sitting comfortably in bed at time of exam. Lactic acid has normalized. Symptoms have subsided at this time. Denies any n/v, abdominal pain, CP, or SOB at this time. She still has some guarding on exam but she states it has greatly improved. Pt to undergo MRCP today. GI still following. Review of Systems Review of Systems: All systems reviewed & are unremarkable except as noted in HPI and below Exam Narrative: Gen - well appearing female in no acute respiratory distress who is nontoxic- appearing lying semi recumbent in bed HEENT - normocephalic. Atraumatic. Pupils equal round and reactive. Sclera clear and anicteric. Nares patent. Oropharynx was clear. No oral lesions. Moist mucous membranes. Neck - neck was supple. No dominant adenopathy, thyromegaly or masses. 2+ carotid upstrokes without bruits. Chest - lungs are clear to auscultation bilaterally. No wheezes or crackles. Breast exam was deferred. CV - heart was regular rate and rhythm. S1-S2. No murmurs gallops or rubs. Abd - abdomen was soft. Nontender. Nondistended. Positive bowel sounds. No organomegaly or masses. Ext - no clubbing, cyanosis or edema. 2+ DP pulses bilaterally. Neuro - patient is alert and oriented x4. Strength is 5/5 in both upper and lower extremities. Cranial nerves 2-12 are intact. Speech is clear. Psych - normal mood and affect. Patient is pleasant and cooperative. Skin - warm and dry. No rashes noted. Objective Data Vital Signs Vital Signs: Vital Signs - 24 hr 09/27/24 09:04 09/27/24 14:00 09/27/24 21:06 Temperature 97.9 F 98.7 F Pulse Rate 84 82 Respiratory Rate 18 16 Blood Pressure 128/51 L 102/44 L Pulse Oximetry 99 98 96 Oxygen Delivery Room Air 09/27/24 22:20 09/27/24 22:24 09/28/24 05:29 Temperature 97.7 F Pulse Rate 68 78 Respiratory Rate 18 Blood Pressure 105/50 L Pulse Oximetry 95 Oxygen Delivery Room Air Intake/Output Intake/Output: Intake & Output 09/25/24 09/26/24 09/27/24 09/28/24 23:59 23:59 23:59 23:59 Intake Total 3590 1550 Output Total 75 Balance -75 3590 1550 Meds/Results Medications: Active Medications Generic Name Dose Route Start Last Admin Trade Name Freq PRN Reason Stop Dose Admin Acetaminophen 650 mg 09/27/24 03:36 Acetaminophen 325 Mg Tablet PO Q4H PRN Mild Pain (1-3) or Fever Atorvastatin Calcium 80 mg 09/27/24 18:00 09/27/24 17:18 Atorvastatin 40 Mg Tablet PO 80 mg QPM [facility]YREE Administration Calcium Carbonate 250 mg 09/28/24 09:00 Calcium Carbonate (Oscal) 250 Mg Tablet PO DAILY [facility] Dicyclomine HCl 10 mg 09/27/24 10:25 09/27/24 17:18 Dicyclomine Hcl 10 Mg Capsule PO 10 mg BID TYREE Administration Sodium Chloride 1,000 mls @ 125 mls/hr 09/27/24 03:40 09/28/24 01:25 Normal Saline Iv IV CONT 125 mls/hr .Q8H TYREE Administration Ceftriaxone Sodium 1 gm in 50 mls @ 100 mls/hr 09/27/24 07:00 09/28/24 06:38 Rocephin 1 Gm/Ns 50 Ml IVPB 100 mls/hr Q24H [facility]REE Administration Metronidazole 500 mg in 100 mls @ 100 mls/hr 09/27/24 07:30 09/28/24 06:35 Flagyl 500 Mg/Iso Soln 100 Ml IVPB Infused Q8HR [facility]REE Infusion Lisinopril 10 mg 09/28/24 09:00 Lisinopril 10 Mg Tablet PO DAILY [facility]REE Metoprolol Succinate 25 mg 09/27/24 21:00 09/27/24 22:24 Metoprolol Succinate Ext Rel 25 Mg Tabcr PO 25 mg Q12HR [facility]REE Administration Miscellaneous Information 1 each 09/27/24 00:01 Risedronate Is Nonform; Can Pt Use From Home? Or Ok To Hold If Pt Will Be Discharged Befor XX 10/27/24 00:00 CLARIFY [facility] Morphine Sulfate 4 mg 09/27/24 03:36 09/28/24 05:36 Morphine Sulfate (*Crx) 4 Mg/Ml Inj IV PUSH 4 mg Q2H PRN Administration Pain Rated 7-10 Non-Formulary Medication 150 mg 10/27/24 09:00 Risedronate PO 11/26/24 08:59 MONTHLY [facility] Ondansetron HCl 4 mg 09/27/24 03:36 09/27/24 07:30 Ondansetron Inj 4 Mg/2 Ml Vial IV PUSH 4 mg Q4H PRN Administration Nausea Pantoprazole Sodium 40 mg 09/27/24 09:00 09/27/24 08:55 Pantoprazole Sodium Iv 40 Mg Vial IV PUSH 40 mg QAM TYREE Administration Perflutren Lipid Microsphere 0 ml 09/27/24 14:37 Perflutren Lipid Microspheres 1.5 Ml Vial Diluted To 10 Ml Total Volume IV PUSH 09/30/24 14:37 ONCE PRN adequate visualization Protocol Vitamin D 125 mcg 09/28/24 09:00 Cholecalciferol (Vitamin D3) 125 Mcg (5,000 Units) Tablet PO DAILY [facility] Radiology Results: ITS Impressions Chest X-Ray 09/27/24 00:31 IMPRESSION: No focal infiltrate or effusion. Head CT 09/27/24 00:33 Impression: No acute intracranial hemorrhage or suspicious mass effect. Inflammatory sinus disease Abdomen/Pelvis CT 09/27/24 05:53 Impression: Suspected infectious/inflammatory colitis involving the distal transverse colon, descending colon, and sigmoid colon. No bowel obstruction. No abscess or free air. 1.5 cm probable cystic mass in the pancreatic head/neck. Consider follow-up MR/MRCP to further evaluate. Labs Labs: Laboratory Results - last 24 hr 09/27/24 09/27/24 09/28/24 11:30 14:08 06:04 WBC 12.7 H 13.1 H RBC 3.59 L 3.37 L Hgb 11.6 L 11.0 L Hct 34.3 L 32.6 L MCV 95.5 96.7 MCH 32.3 32.6 MCHC 33.8 33.7 RDW 12.2 12.6 Plt Count 144 L 149 L MPV 9.3 9.6 Immature Gran % (Auto) 0.4 0.5 Neut % (Auto) 79.6 H 80.2 H Lymph % (Auto) 12.9 L 11.7 L [place] % (Auto) 6.9 6.6 Eos % (Auto) 0.0 0.7 Baso % (Auto) 0.2 0.3 Lymph # (Auto) 1.64 1.53 [place] # (Auto) 0.9 H 0.9 H Eos # (Auto) 0.0 0.1 Baso # (Auto) 0.0 0.0 Abs Immat Gran (auto) 0.05 H 0.07 H Absolute Neuts (auto) 10.1 H 10.5 H Absolute Nucleated RBC 0.000 0.000 Nucleated RBC % 0.0 0.0 % Immature Plt Fraction 2.0 Sodium 138 135 L Potassium 4.1 3.5 Chloride 110 H 107 Carbon Dioxide 21 L 22 Anion Gap 7 6 BUN 14 9 D Creatinine 0.62 L 0.55 L Estim Creat Clear Calc 53 59 Estimated GFR > 60 > 60 Glucose 106 106 Lactic Acid 1.2 0.9 Calcium 7.9 L 7.8 L Magnesium 2.0 Total Bilirubin 0.9 1.2 AST 34 34 ALT 32 29 Alkaline Phosphatase 39 35 L Total Protein 6.0 L 5.9 L Albumin 3.4 L 3.3 L C. difficile (PCR) Negative Quality VTE Prophylaxis VTE prophylaxis: mechanical ordered
[2024-09-28] MEDS: PANTOPRAZOLE SODIUM IV 40 MG VIAL IV PUSH (08:55)
[2024-09-28] MEDS: CALCIUM CARBONATE (OSCAL) 250 MG TABLET PO (08:55)
[2024-09-28] MEDS: CHOLECALCIFEROL (VITAMIN D3) 125 MCG (5,000 UNITS) TABLET PO (08:55)
[2024-09-28] MEDS: DICYCLOMINE HCL 10 MG CAPSULE PO ×2 (08:55→16:59)
--- NOTE | 2024-09-28 12:07 | P.PNCA_ITS ---
Progress Note: A&P Assessment and Plan (1) Vasovagal syncope: Code(s): R55 - Syncope and collapse Status: Acute Plan 79-year-old lady with an episode of typical vasovagal syncope. She does not have any additional cardiac concerns at this time. I believe it is safe cardiac chao for her to be discharged and will would intend of course to follow-up with her established physicians in [place] where she and her live. Keshav Jacobs MD [facility] Subjective Date/time seen: Date of service: 09/28/24 12:07 Interval history: Follow-up visit in this 79-year-old lady with: Episode of vasovagal syncope based on clinical history. She does not have any previous cardiac history and feels well today. No arrhythmias on telemetry since consultation yesterday. Conversation with the patient and her regarding the nature of vasovagal syncope. Following discharge an event monitor was recommended in the initial consultation. Patient tells me that she is traveling through this area and resides in [place]. I therefore told her to follow-up with her PCP in [place] where an event monitor can be arranged if they are in agreement. There is no plan for ongoing follow-up with our practice since she lives out of counts include [address] beds at the [facility] Exam Const: General: comfortable and no acute distress Other: Pleasant elderly lady appears to be comfortable in no distress HENMT: Mouth: Yes moist mucous membranes Eyes: Sclera: sclerae normal Neck: Neck: supple and no JVD Resp: Effort & Inspection: normal respiratory effort Auscultation: clear to auscultation bilaterally Cardio: Rate: regular rate Rhythm: regular rhythm GI: GI Palp: Yes Soft to palpation Auscultation: normal bowel sounds Skin: General skin exam: normal color Neuro: Other: Alert and oriented x3 Extrem: General: normal to inspection Other: No edema, good pulses Objective Data Vital Signs Vital Signs: Vital Signs - 24 hr 09/27/24 14:00 09/27/24 21:06 09/27/24 22:20 Temperature 36.6 C 37.1 C Pulse Rate 84 82 Respiratory Rate 18 16 Blood Pressure 128/51 L 102/44 L Pulse Oximetry 98 96 Oxygen Delivery Room Air 09/27/24 22:24 09/28/24 05:29 09/28/24 08:54 Temperature 36.5 C Pulse Rate 68 78 68 Respiratory Rate 18 Blood Pressure 105/50 L 107/48 L Pulse Oximetry 95 Oxygen Delivery 09/28/24 08:55 Temperature Pulse Rate 68 Respiratory Rate Blood Pressure Pulse Oximetry Oxygen Delivery Intake/Output Intake/Output: Intake & Output 09/25/24 09/26/24 09/27/24 09/28/24 23:59 23:59 23:59 23:59 Intake Total 3590 1550 Output Total 75 Balance -75 3590 1550 Meds/Results Medications: Active Medications Generic Name Dose Route Start Last Admin Trade Name Freq PRN Reason Stop Dose Admin Acetaminophen 650 mg 09/27/24 03:36 Acetaminophen 325 Mg Tablet PO Q4H PRN Mild Pain (1-3) or Fever Atorvastatin Calcium 80 mg 09/27/24 18:00 09/27/24 17:18 Atorvastatin 40 Mg Tablet PO 80 mg QPM TYREE Administration Calcium Carbonate 250 mg 09/28/24 09:00 09/28/24 08:55 Calcium Carbonate (Oscal) 250 Mg Tablet PO 250 mg DAILY T[facility]REE Administration Dicyclomine HCl 10 mg 09/27/24 10:25 09/28/24 08:55 Dicyclomine Hcl 10 Mg Capsule PO 10 mg BID TYREE Administration Sodium Chloride 1,000 mls @ 125 mls/hr 09/27/24 03:40 09/28/24 01:25 Normal Saline Iv IV CONT 125 mls/hr .Q8H TYREE Administration Ceftriaxone Sodium 1 gm in 50 mls @ 100 mls/hr 09/27/24 07:00 09/28/24 06:38 Rocephin 1 Gm/Ns 50 Ml IVPB 100 mls/hr Q24H TYREE Administration Metronidazole 500 mg in 100 mls @ 100 mls/hr 09/27/24 07:30 09/28/24 06:35 Flagyl 500 Mg/Iso Soln 100 Ml IVPB Infused Q8HR [facility] Infusion Lisinopril 10 mg 09/28/24 09:00 09/28/24 08:55 Lisinopril 10 Mg Tablet PO Not Given DAILY [facility] Metoprolol Succinate 25 mg 09/27/24 21:00 09/28/24 08:55 Metoprolol Succinate Ext Rel 25 Mg Tabcr PO Not Given Q12HR [facility] Miscellaneous Information 1 each 09/27/24 00:01 Risedronate Is Nonform; Can Pt Use From Home? Or Ok To Hold If Pt Will Be Discharged Befor XX 10/27/24 00:00 CLARIFY [facility] Morphine Sulfate 4 mg 09/27/24 03:36 09/28/24 05:36 Morphine Sulfate (*Crx) 4 Mg/Ml Inj IV PUSH 4 mg Q2H PRN Administration Pain Rated 7-10 Non-Formulary Medication 150 mg 10/27/24 09:00 Risedronate PO 11/26/24 08:59 MONTHLY [facility] Ondansetron HCl 4 mg 09/27/24 03:36 09/27/24 07:30 Ondansetron Inj 4 Mg/2 Ml Vial IV PUSH 4 mg Q4H PRN Administration Nausea Pantoprazole Sodium 40 mg 09/27/24 09:00 09/28/24 08:55 Pantoprazole Sodium Iv 40 Mg Vial IV PUSH 40 mg QAM TYREE Administration Perflutren Lipid Microsphere 0 ml 09/27/24 14:37 Perflutren Lipid Microspheres 1.5 Ml Vial Diluted To 10 Ml Total Volume IV PUSH 09/30/24 14:37 ONCE PRN adequate visualization Protocol Vitamin D 125 mcg 09/28/24 09:00 09/28/24 08:55 Cholecalciferol (Vitamin D3) 125 Mcg (5,000 Units) Tablet PO 125 mcg DAILY [facility] Administration Radiology Results: ITS Impressions Chest X-Ray 09/27/24 00:31 IMPRESSION: No focal infiltrate or effusion. Head CT 09/27/24 00:33 Impression: No acute intracranial hemorrhage or suspicious mass effect. Inflammatory sinus disease Abdomen/Pelvis CT 09/27/24 05:53 Impression: Suspected infectious/inflammatory colitis involving the distal transverse colon, descending colon, and sigmoid colon. No bowel obstruction. No abscess or free air. 1.5 cm probable cystic mass in the pancreatic head/neck. Consider follow-up MR/MRCP to further evaluate. Labs Labs: Laboratory Results - last 24 hr 09/27/24 09/27/24 09/28/24 11:30 14:08 06:04 WBC 12.7 H 13.1 H RBC 3.59 L 3.37 L Hgb 11.6 L 11.0 L Hct 34.3 L 32.6 L MCV 95.5 96.7 MCH 32.3 32.6 MCHC 33.8 33.7 RDW 12.2 12.6 Plt Count 144 L 149 L MPV 9.3 9.6 Immature Gran % (Auto) 0.4 0.5 Neut % (Auto) 79.6 H 80.2 H Lymph % (Auto) 12.9 L 11.7 L [place] % (Auto) 6.9 6.6 Eos % (Auto) 0.0 0.7 Baso % (Auto) 0.2 0.3 Lymph # (Auto) 1.64 1.53 [place] # (Auto) 0.9 H 0.9 H Eos # (Auto) 0.0 0.1 Baso # (Auto) 0.0 0.0 Abs Immat Gran (auto) 0.05 H 0.07 H Absolute Neuts (auto) 10.1 H 10.5 H Absolute Nucleated RBC 0.000 0.000 Nucleated RBC % 0.0 0.0 % Immature Plt Fraction 2.0 Sodium 138 135 L Potassium 4.1 3.5 Chloride 110 H 107 Carbon Dioxide 21 L 22 Anion Gap 7 6 BUN 14 9 D Creatinine 0.62 L 0.55 L Estim Creat Clear Calc 53 59 Estimated GFR > 60 > 60 Glucose 106 106 Lactic Acid 1.2 0.9 Calcium 7.9 L 7.8 L Magnesium 2.0 Total Bilirubin 0.9 1.2 AST 34 34 ALT 32 29 Alkaline Phosphatase 39 35 L Total Protein 6.0 L 5.9 L Albumin 3.4 L 3.3 L C. difficile (PCR) Negative
--- NOTE | 2024-09-28 15:00 | P.PNGI_ITS ---
Progress Note: A&P Assessment and Plan (1) Colitis: Code(s): K52.9 - Noninfective gastroenteritis and colitis, unspecified Status: Acute Assessment and Plan: wonder if was ischemic but much better now, normalization of lactic acid doing better after fluids, abx diet as tolerated (2) Lower abdominal pain: Code(s): R10.30 - Lower abdominal pain, unspecified Status: Acute Assessment and Plan: almost gone (3) Lactic acidosis: Code(s): E87.20 - Acidosis, unspecified Status: Acute Assessment and Plan: resolved (4) Vasovagal syncope: Code(s): R55 - Syncope and collapse Status: Acute Assessment and Plan: cardiology on board (5) Elevated liver transaminase level: Code(s): R74.01 - Elevation of levels of liver transaminase levels Status: Acute (6) Chronic constipation: Code(s): K59.09 - Other constipation Status: Acute Subjective Date/time seen: 09/28/24 15:00 Interval history: she is doing much better, pain is almost gone Review of Systems Review of Systems: All systems reviewed & are unremarkable except as noted in HPI and below Exam Const: General: comfortable and no acute distress Other: Pleasant elderly lady appears to be comfortable in no distress HENMT: Mouth: Yes moist mucous membranes Eyes: Sclera: sclerae normal Neck: Neck: supple Resp: Effort & Inspection: normal respiratory effort Auscultation: clear to auscultation bilaterally Cardio: Rate: regular rate Rhythm: regular rhythm GI: GI Palp: Yes Soft to palpation and No Tenderness to palpation present (GI) Auscultation: normal bowel sounds Skin: General skin exam: normal color Neuro: Speech: normal speech Motor exam (neuro): 5/5 motor strength present throughout Other: Alert and oriented x3 Extrem: General: normal to inspection Other: No edema, good pulses Objective Data Vital Signs Vital Signs: Vital Signs - 24 hr 09/27/24 21:06 09/27/24 22:20 09/27/24 22:24 Temperature 98.7 F Pulse Rate 82 68 Respiratory Rate 16 Blood Pressure 102/44 L Pulse Oximetry 96 Oxygen Delivery Room Air 09/28/24 05:29 09/28/24 08:54 09/28/24 08:55 Temperature 97.7 F Pulse Rate 78 68 68 Respiratory Rate 18 Blood Pressure 105/50 L 107/48 L Pulse Oximetry 95 Oxygen Delivery Intake/Output Intake/Output: Intake & Output 09/25/24 09/26/24 09/27/24 09/28/24 23:59 23:59 23:59 23:59 Intake Total 3590 1790 Output Total 75 Balance -75 3590 1790 Meds/Results Medications: Active Medications Generic Name Dose Route Start Last Admin Trade Name Freq PRN Reason Stop Dose Admin Acetaminophen 650 mg 09/27/24 03:36 Acetaminophen 325 Mg Tablet PO Q4H PRN Mild Pain (1-3) or Fever Atorvastatin Calcium 80 mg 09/27/24 18:00 09/27/24 17:18 Atorvastatin 40 Mg Tablet PO 80 mg QPM TYREE Administration Calcium Carbonate 250 mg 09/28/24 09:00 09/28/24 08:55 Calcium Carbonate (Oscal) 250 Mg Tablet PO 250 mg DAILY TYREE Administration Dicyclomine HCl 10 mg 09/27/24 10:25 09/28/24 08:55 Dicyclomine Hcl 10 Mg Capsule PO 10 mg BID TYREE Administration Sodium Chloride 1,000 mls @ 125 mls/hr 09/27/24 03:40 09/28/24 01:25 Normal Saline Iv IV CONT 125 mls/hr .Q8H TYREE Administration Ceftriaxone Sodium 1 gm in 50 mls @ 100 mls/hr 09/27/24 07:00 09/28/24 06:38 Rocephin 1 Gm/Ns 50 Ml IVPB 100 mls/hr Q24H TYREE Administration Metronidazole 500 mg in 100 mls @ 100 mls/hr 09/27/24 07:30 09/28/24 13:11 Flagyl 500 Mg/Iso Soln 100 Ml IVPB 100 mls/hr Q8HR TYREE Administration Lisinopril 10 mg 09/28/24 09:00 09/28/24 08:55 Lisinopril 10 Mg Tablet PO Not Given DAILY [facility] Metoprolol Succinate 25 mg 09/27/24 21:00 09/28/24 08:55 Metoprolol Succinate Ext Rel 25 Mg Tabcr PO Not Given Q12HR [facility] Miscellaneous Information 1 each 09/27/24 00:01 Risedronate Is Nonform; Can Pt Use From Home? Or Ok To Hold If Pt Will Be Discharged Befor XX 10/27/24 00:00 CLARIFY [facility] Morphine Sulfate 4 mg 09/27/24 03:36 09/28/24 05:36 Morphine Sulfate (*Crx) 4 Mg/Ml Inj IV PUSH 4 mg Q2H PRN Administration Pain Rated 7-10 Non-Formulary Medication 150 mg 10/27/24 09:00 Risedronate PO 11/26/24 08:59 MONTHLY [facility] Ondansetron HCl 4 mg 09/27/24 03:36 09/27/24 07:30 Ondansetron Inj 4 Mg/2 Ml Vial IV PUSH 4 mg Q4H PRN Administration Nausea Pantoprazole Sodium 40 mg 09/27/24 09:00 09/28/24 08:55 Pantoprazole Sodium Iv 40 Mg Vial IV PUSH 40 mg QAM TYREE Administration Perflutren Lipid Microsphere 0 ml 09/27/24 14:37 Perflutren Lipid Microspheres 1.5 Ml Vial Diluted To 10 Ml Total Volume IV PUSH 09/30/24 14:37 ONCE PRN adequate visualization Protocol Vitamin D 125 mcg 09/28/24 09:00 09/28/24 08:55 Cholecalciferol (Vitamin D3) 125 Mcg (5,000 Units) Tablet PO 125 mcg DAILY [facility]REE Administration Radiology Results: ITS Impressions Chest X-Ray 09/27/24 00:31 IMPRESSION: No focal infiltrate or effusion. Head CT 09/27/24 00:33 Impression: No acute intracranial hemorrhage or suspicious mass effect. Inflammatory sinus disease Abdomen/Pelvis CT 09/27/24 05:53 Impression: Suspected infectious/inflammatory colitis involving the distal transverse colon, descending colon, and sigmoid colon. No bowel obstruction. No abscess or free air. 1.5 cm probable cystic mass in the pancreatic head/neck. Consider follow-up MR/MRCP to further evaluate. MRCP 09/28/24 12:01 IMPRESSION: 1. Prominent edematous wall thickening of the distal transverse and descending colon consistent with colitis which could be infectious, inflammatory or ischemic in etiology. 2. 1.6 x 1.2 cm cystic lesion at the head of the pancreas with a few subcentimeter cystic lesions at the tail the pancreas which appear to demonstrate communication with the main pancreatic duct favoring either pseudocysts and dilated pancreatic side branches related to prior acute pancreatitis or intraductal papillary mucinous neoplasm (IPMN) versus less likely mucinous cystic neoplasm (MCN), and the less common serous cystadenoma and neuroendocrine tumor. Correlate for history of pancreatitis. Consider 2 year follow-up pre and postcontrast MRI. 3. Small amount of likely reactive ascites in the abdomen and pelvis. 4. Small bilateral pleural effusions with dependent consolidation the bilateral lower lobes which could represent atelectasis or pneumonia. Labs Labs: Laboratory Results - last 24 hr 09/28/24 06:04 WBC 13.1 H RBC 3.37 L Hgb 11.0 L Hct 32.6 L MCV 96.7 MCH 32.6 MCHC 33.7 RDW 12.6 Plt Count 149 L MPV 9.6 Immature Gran % (Auto) 0.5 Neut % (Auto) 80.2 H Lymph % (Auto) 11.7 L [place] % (Auto) 6.6 Eos % (Auto) 0.7 Baso % (Auto) 0.3 Lymph # (Auto) 1.53 [place] # (Auto) 0.9 H Eos # (Auto) 0.1 Baso # (Auto) 0.0 Abs Immat Gran (auto) 0.07 H Absolute Neuts (auto) 10.5 H Absolute Nucleated RBC 0.000 Nucleated RBC % 0.0 % Immature Plt Fraction 2.0 Sodium 135 L Potassium 3.5 Chloride 107 Carbon Dioxide 22 Anion Gap 6 BUN 9 D Creatinine 0.55 L Estim Creat Clear Calc 59 Estimated GFR > 60 Glucose 106 Lactic Acid 0.9 Calcium 7.8 L Total Bilirubin 1.2 AST 34 ALT 29 Alkaline Phosphatase 35 L Total Protein 5.9 L Albumin 3.3 L
[2024-09-28] MEDS: ATORVASTATIN 40 MG TABLET 80 MG PO (16:59)
[2024-09-28] MEDS: METOPROLOL SUCCINATE EXT REL 25 MG TABCR PO (21:12)
[2024-09-28] MEDS: ACETAMINOPHEN 325 MG TABLET 650 MG PO (21:13)
[2024-09-29] MEDS: SODIUM CHLORIDE 0.9% IV 1,000 ML 125 ML IV CONT ×2 (01:10→20:29)
[2024-09-29 04:12] VITALS: BP 133/56; PULSE 70; RESP 16; TEMP 36.6; O2SAT 96
[2024-09-29] MEDS: metroNIDAZOLE 500 MG/ISO 100ML 500 MG/100 ML BAG 100 MG IVPB ×3 (05:43→20:40)
[2024-09-29] MEDS: MORPHINE SULFATE (*CRX) 4 MG/ML INJ IV PUSH (05:46)
[2024-09-29 05:52] LABS: Basophils Percent Auto 0.4 % (0.2-1.2); Eosinophils Absolute Auto 0.2 K/mm3 (0-0.3); Eosinophils Percent Auto 2.4 % (0-4.4); Hematocrit 34.6 % (37.0-47.0); Hemoglobin 11.5 g/dL (12.0-15.0); Immature Granulocyte Absolute 0.05 K/mm3 (0.00-0.031); Immature Granulocyte Percent A 0.5 % (0-0.5); Lymphocytes Absolute Auto 1.82 K/mm3 (0.9-3.2); Lymphocytes Percent Auto 19.2 % (18.3-44.2); Mean Corpuscular HGB Conc 33.2 g/dl (32-36); Mean Corpuscular Hemoglobin 32.2 pg (26-34); Mean Corpuscular Volume 96.9 fl (80-100); Mean Platelet Volume 9.7 fl (7.4-10.4); Monocytes Absolute Auto 0.6 K/mm3 (0.1-0.6); Monocytes Percent Auto 6.5 % (2.6-8.5); Neutrophils Absolute Auto 6.7 K/mm3 (1.3-6.7); Platelet Count Result 140 k/mm3 (150-375); Red Blood Count 3.57 M/mm3 (4.2-5.4); Red Cell Distribution Width 12.4 % (11.5-14.5); White Blood Count 9.5 K/mm3 (4.5-10.0)
[2024-09-29 06:07] LABS: Alanine Aminotransferase 26 U/L (6-35); Albumin Level 3.4 g/dL (3.5-5.1); Alkaline Phosphatase 25 U/L (38-126); Anion Gap 7 mmol/L (4-12); Aspartate Amino Transferase 38 U/L (14-36); Bilirubin,Total 0.7 mg/dL (0.2-1.3); Blood Urea Nitrogen 6 mg/dL (7-17); Calcium 7.7 mg/dL (8.4-10.2); Carbon Dioxide 21 mmol/L (22-30); Chloride 110 mmol/L (98-107); Estimated CRCL calculation 67 ml/min; Estimated Glomerular Filt Rate > 60; Glucose 100 mg/dL (65-110); Potassium 3.6 mmol/L (3.4-5.0); Sodium 138 mmol/L (137-145)
[2024-09-29 08:30] VITALS: O2SAT 96
--- NOTE | 2024-09-29 09:14 | WPDGIPROGNO ---
Progress Note: A&P Assessment and Plan (1) Colitis: Code(s): K52.9 - Noninfective gastroenteritis and colitis, unspecified Status: Acute Assessment and Plan: wonder if was ischemic but much better, normalization of lactic acid doing better after fluids, empirically on abx diet as tolerated (2) Lower abdominal pain: Code(s): R10.30 - Lower abdominal pain, unspecified Status: Acute Assessment and Plan: will add simethicone (3) Lactic acidosis: Code(s): E87.20 - Acidosis, unspecified Status: Acute Assessment and Plan: resolved (4) Vasovagal syncope: Code(s): R55 - Syncope and collapse Status: Acute Assessment and Plan: cardiology on board (5) Elevated liver transaminase level: Code(s): R74.01 - Elevation of levels of liver transaminase levels Status: Acute (6) Chronic constipation: Code(s): K59.09 - Other constipation Status: Acute Subjective Date/time seen: 09/29/24 09:14 Interval history: bloated and still some discomfort Review of Systems Review of Systems: All systems reviewed & are unremarkable except as noted in HPI and below Exam Const: General: comfortable and no acute distress Other: Pleasant elderly lady appears to be comfortable in no distress HENMT: Mouth: Yes moist mucous membranes Eyes: Sclera: sclerae normal Neck: Neck: supple Resp: Effort & Inspection: normal respiratory effort Auscultation: clear to auscultation bilaterally Cardio: Rate: regular rate Rhythm: regular rhythm GI: GI Palp: Yes Soft to palpation and Yes Tenderness to palpation present (GI) (mild ttp, no rebound) Auscultation: normal bowel sounds Skin: General skin exam: normal color Neuro: Speech: normal speech Motor exam (neuro): 5/5 motor strength present throughout Other: Alert and oriented x3 Extrem: General: normal to inspection Other: No edema Psych: Mental Status: mental status grossly normal Objective Data Vital Signs Vital Signs: Vital Signs - 24 hr 09/28/24 14:45 09/28/24 20:14 09/28/24 21:10 Temperature 98.4 F 98.2 F Pulse Rate 76 83 Respiratory Rate 18 16 Blood Pressure 118/48 L 113/48 L Pulse Oximetry 94 94 Oxygen Delivery Room Air Fraction of Inspired Oxygen 09/28/24 21:12 09/28/24 21:39 09/29/24 04:12 Temperature 98 F Pulse Rate 60 70 Respiratory Rate 16 Blood Pressure 133/56 L Pulse Oximetry 94 96 Oxygen Delivery Room Air Fraction of Inspired Oxygen 21 Intake/Output Intake/Output: Intake & Output 09/26/24 09/27/24 09/28/24 09/29/24 23:59 23:59 23:59 23:59 Intake Total 3590 3520 1500 Output Total 75 Balance -75 3590 3520 1500 Meds/Results Medications: Active Medications Generic Name Dose Route Start Last Admin Trade Name Freq PRN Reason Stop Dose Admin Acetaminophen 650 mg 09/27/24 03:36 09/28/24 21:13 Acetaminophen 325 Mg Tablet PO 650 mg Q4H PRN Administration Mild Pain (1-3) or Fever Atorvastatin Calcium 80 mg 09/27/24 18:00 09/28/24 16:59 Atorvastatin 40 Mg Tablet PO 80 mg QPM TYREE Administration Calcium Carbonate 250 mg 09/28/24 09:00 09/28/24 08:55 Calcium Carbonate (Oscal) 250 Mg Tablet PO 250 mg DAILY TYREE Administration Dicyclomine HCl 10 mg 09/27/24 10:25 09/28/24 16:59 Dicyclomine Hcl 10 Mg Capsule PO 10 mg BID TYREE Administration Sodium Chloride 1,000 mls @ 125 mls/hr 09/27/24 03:40 09/29/24 05:53 Normal Saline Iv IV CONT Not Given .Q8H TYREE Ceftriaxone Sodium 1 gm in 50 mls @ 100 mls/hr 09/27/24 07:00 09/29/24 07:04 Rocephin 1 Gm/Ns 50 Ml IVPB Infused Q24H TYREE Infusion Metronidazole 500 mg in 100 mls @ 100 mls/hr 09/27/24 07:30 09/29/24 06:40 Flagyl 500 Mg/Iso Soln 100 Ml IVPB Infused Q8HR TYREE Infusion Lisinopril 10 mg 09/28/24 09:00 09/28/24 08:55 Lisinopril 10 Mg Tablet PO Not Given DAILY TYREE Metoprolol Succinate 25 mg 09/27/24 21:00 09/28/24 21:12 Metoprolol Succinate Ext Rel 25 Mg Tabcr PO 25 mg Q12HR TYREE Administration Morphine Sulfate 4 mg 09/27/24 03:36 09/29/24 05:46 Morphine Sulfate (*Crx) 4 Mg/Ml Inj IV PUSH 4 mg Q2H PRN Administration Pain Rated 7-10 Non-Formulary Medication 150 mg 10/27/24 09:00 Risedronate PO 11/26/24 08:59 MONTHLY TYREE Ondansetron HCl 4 mg 09/27/24 03:36 09/27/24 07:30 Ondansetron Inj 4 Mg/2 Ml Vial IV PUSH 4 mg Q4H PRN Administration Nausea Pantoprazole Sodium 40 mg 09/27/24 09:00 09/28/24 08:55 Pantoprazole Sodium Iv 40 Mg Vial IV PUSH 40 mg QAM TYREE Administration Perflutren Lipid Microsphere 0 ml 09/27/24 14:37 Perflutren Lipid Microspheres 1.5 Ml Vial Diluted To 10 Ml Total Volume IV PUSH 09/30/24 14:37 ONCE PRN adequate visualization Protocol Vitamin D 125 mcg 09/28/24 09:00 09/28/24 08:55 Cholecalciferol (Vitamin D3) 125 Mcg (5,000 Units) Tablet PO 125 mcg DAILY TYREE Administration Radiology Results: ITS Impressions Chest X-Ray 09/27/24 00:31 IMPRESSION: No focal infiltrate or effusion. Head CT 09/27/24 00:33 Impression: No acute intracranial hemorrhage or suspicious mass effect. Inflammatory sinus disease Abdomen/Pelvis CT 09/27/24 05:53 Impression: Suspected infectious/inflammatory colitis involving the distal transverse colon, descending colon, and sigmoid colon. No bowel obstruction. No abscess or free air. 1.5 cm probable cystic mass in the pancreatic head/neck. Consider follow-up MR/MRCP to further evaluate. MRCP 09/28/24 12:01 IMPRESSION: 1. Prominent edematous wall thickening of the distal transverse and descending colon consistent with colitis which could be infectious, inflammatory or ischemic in etiology. 2. 1.6 x 1.2 cm cystic lesion at the head of the pancreas with a few subcentimeter cystic lesions at the tail the pancreas which appear to demonstrate communication with the main pancreatic duct favoring either pseudocysts and dilated pancreatic side branches related to prior acute pancreatitis or intraductal papillary mucinous neoplasm (IPMN) versus less likely mucinous cystic neoplasm (MCN), and the less common serous cystadenoma and neuroendocrine tumor. Correlate for history of pancreatitis. Consider 2 year follow-up pre and postcontrast MRI. 3. Small amount of likely reactive ascites in the abdomen and pelvis. 4. Small bilateral pleural effusions with dependent consolidation the bilateral lower lobes which could represent atelectasis or pneumonia. Labs Labs: Laboratory Results - last 24 hr 09/29/24 05:24 WBC 9.5 RBC 3.57 L Hgb 11.5 L Hct 34.6 L MCV 96.9 MCH 32.2 MCHC 33.2 RDW 12.4 Plt Count 140 L MPV 9.7 Immature Gran % (Auto) 0.5 Neut % (Auto) 71.0 Lymph % (Auto) 19.2 [place] % (Auto) 6.5 Eos % (Auto) 2.4 Baso % (Auto) 0.4 Lymph # (Auto) 1.82 [place] # (Auto) 0.6 Eos # (Auto) 0.2 Baso # (Auto) 0.0 Abs Immat Gran (auto) 0.05 H Absolute Neuts (auto) 6.7 Absolute Nucleated RBC 0.000 Nucleated RBC % 0.0 Sodium 138 Potassium 3.6 Chloride 110 H Carbon Dioxide 21 L Anion Gap 7 BUN 6 L Creatinine 0.48 L Estim Creat Clear Calc 67 Estimated GFR > 60 Glucose 100 Calcium 7.7 L Total Bilirubin 0.7 AST 38 H ALT 26 Alkaline Phosphatase 25 L Total Protein 6.0 L Albumin 3.4 L
[2024-09-29 09:49] VITALS: PULSE 77
[2024-09-29] MEDS: METOPROLOL SUCCINATE EXT REL 25 MG TABCR PO ×2 (09:49→20:40)
[2024-09-29] MEDS: PANTOPRAZOLE SODIUM IV 40 MG VIAL IV PUSH (09:49)
[2024-09-29] MEDS: CHOLECALCIFEROL (VITAMIN D3) 125 MCG (5,000 UNITS) TABLET PO (09:49)
[2024-09-29] MEDS: DICYCLOMINE HCL 10 MG CAPSULE PO ×2 (09:50→17:43)
[2024-09-29] MEDS: lisinopriL 10 MG TABLET PO (09:50)
[2024-09-29] MEDS: CALCIUM CARBONATE (OSCAL) 250 MG TABLET PO (09:50)
[2024-09-29] MEDS: SIMETHICONE 80 MG TAB.CHEW PO ×2 (09:54→17:43)
--- NOTE | 2024-09-29 13:47 | P.PNIM_ITS ---
Progress Note: A&P Assessment and Plan (1) Colitis: Code(s): K52.9 - Noninfective gastroenteritis and colitis, unspecified Status: Acute Assessment and Plan: * Abdomen/pelvis CT: Suspected infectious/inflammatory colitis involving the distal transverse colon, descending colon, and sigmoid colon. No bowel obstruction. No abscess or free air. * Monitor vital signs, I&Os, track stool output, watch for bloody stools, neuro status and patient is a fall risk * Monitor serum electrolytes and CBC * Gentle IV fluid resuscitation * Flagyl 500 mg t.i.d. ceftriaxone q24 hr * Diet: Clear liquid * GI consultation * Stool culture, C diff, fecal calprotectin * Continue IV antibiotics PPI * Initiate dicyclomine 10 mg * Monitor signs for upper/lower GI bleed * Hold endoscopic eval at this time * Patient endorsing worsening bloating and generalized abdominal discomfort today * Denies any nausea/vomiting * Endorses some passage of blood clots in the stool, likely secondary to underlying inflammatory colitis (2) Pancreatic mass: Code(s): K86.89 - Other specified diseases of pancreas Status: Acute Assessment and Plan: * Abdomen/pelvis CT: 1.5 cm probable cystic mass in the pancreatic head/neck. Consider follow-up MR/MRCP to further evaluate. * Family history of pancreatic cancer * GI following * MRCP ordered for further evaluation * MRCP:1.6 x 1.2 cm cystic lesion at the head of the pancreas with a few subcentimeter cystic lesions at the tail the pancreas which appear to demonstrate communication with the main pancreatic duct favoring either pseudocysts and dilated pancreatic side branches related to prior acute pancreatitis or intraductal papillary mucinous neoplasm (IPMN) versus less likely mucinous cystic neoplasm (MCN), and the less common serous cystadenoma and neuroendocrine tumor. Correlate for history of pancreatitis. Consider 2 year follow-up pre and postcontrast MRI. * Patient to follow-up with her PCP in the outpatient setting, no further intervention or workup indicated at this time (3) Vasovagal syncope: Code(s): R55 - Syncope and collapse Status: Acute Assessment and Plan: * Syncopal episode occurred wall straining during bowel movement on day of arrival to ED. Patient states that she was trying to pass a bowel movement and became diaphoretic and had a witnessed syncopal episode. was present, states that patient did not fall to the floor or strike her head * Head CT: No acute intracranial hemorrhage or suspicious mass. Inflammatory sinus disease * Chest x-ray: No focal infiltrate or effusion. * EKG: Sinus rhythm, left bundle-branch * Cardiology consult * Likely vasovagal in nature * Monitor on tele, 30 day event monitor at discharge * Obtain TTE, TSH, and free T4 * Monitor electrolytes and daily labs * PT/OT * ECHO: Normal left and right ventricular size and systolic contractility, mild sclerosis of aortic valve and well-maintained leaflet excursion. Small amount of mitral annular calcium * 09/29: Stable, no episodes of dizziness or syncope (4) Hypertension: Code(s): I10 - Essential (primary) hypertension Status: Acute Assessment and Plan: Patient's blood pressure was reviewed on 09/27 Blood pressure remains well controlled. Will continue current medications. . Stable (5) Elevated liver transaminase level: Code(s): R74.01 - Elevation of levels of liver transaminase levels Status: Acute Assessment and Plan: * In ED: AST/ALT= 49/49 * Etiology could be secondary to underlying inflammatory/infectious colitis or concerning mass * Monitor daily LFTs * Resolved (6) Hyperlipidemia: Code(s): E78.5 - Hyperlipidemia, unspecified Status: Acute Assessment and Plan: * Continue atorvastatin 80 mg Plan DVT prophylaxis: SCDs Subjective Date/time seen: 09/29/24 13:47 Interval history: 79-year-old female with a past medical history of HTN and osteoporosis who presents to the hospital for abdominal pain and a syncopal episode that occurred on the day of admission. 09/29/2024 Patient sitting comfortably in bed at time of exam. She is endorsing some more bloating and generalized abdominal discomfort today. Also endorses passage of blood clots in the stool. Spoke with GI regarding these complaints and they agree that these are likely secondary to underlying inflammatory/infectious colitis. Leukocytosis improving. Denies any nausea/vomiting today. MRCP showed the inflammatory/infectious colitis as well as a possible pseudocyst on the pancreas, recommend follow-up in 2 years with an MRI. Likely candidate for discharge tomorrow if symptoms continue to improve Review of Systems Review of Systems: All systems reviewed & are unremarkable except as noted in HPI and below Exam Narrative: Gen - well appearing female in no acute respiratory distress who is nontoxic- appearing lying semi recumbent in bed HEENT - normocephalic. Atraumatic. Pupils equal round and reactive. Sclera clear and anicteric. Nares patent. Oropharynx was clear. No oral lesions. Moist mucous membranes. Neck - neck was supple. No dominant adenopathy, thyromegaly or masses. 2+ carotid upstrokes without bruits. Chest - lungs are clear to auscultation bilaterally. No wheezes or crackles. Breast exam was deferred. CV - heart was regular rate and rhythm. S1-S2. No murmurs gallops or rubs. Abd - abdomen was soft. Nontender. Nondistended. Positive bowel sounds. No organomegaly or masses. Ext - no clubbing, cyanosis or edema. 2+ DP pulses bilaterally. Neuro - patient is alert and oriented x4. Strength is 5/5 in both upper and lower extremities. Cranial nerves 2-12 are intact. Speech is clear. Psych - normal mood and affect. Patient is pleasant and cooperative. Skin - warm and dry. No rashes noted. Objective Data Vital Signs Vital Signs: Vital Signs - 24 hr 09/28/24 14:45 09/28/24 20:14 09/28/24 21:10 Temperature 98.4 F 98.2 F Pulse Rate 76 83 Respiratory Rate 18 16 Blood Pressure 118/48 L 113/48 L Pulse Oximetry 94 94 Oxygen Delivery Room Air Fraction of Inspired Oxygen 09/28/24 21:12 09/28/24 21:39 09/29/24 04:12 Temperature 98 F Pulse Rate 60 70 Respiratory Rate 16 Blood Pressure 133/56 L Pulse Oximetry 94 96 Oxygen Delivery Room Air Fraction of Inspired Oxygen 09/29/24 09:49 Temperature Pulse Rate 77 Respiratory Rate Blood Pressure Pulse Oximetry Oxygen Delivery Fraction of Inspired Oxygen Intake/Output Intake/Output: Intake & Output 09/26/24 09/27/24 09/28/24 09/29/24 23:59 23:59 23:59 23:59 Intake Total 3590 3520 1740 Output Total 75 Balance -75 3590 3520 1740 Meds/Results Medications: Active Medications Generic Name Dose Route Start Last Admin Trade Name Freq PRN Reason Stop Dose Admin Acetaminophen 650 mg 09/27/24 03:36 09/28/24 21:13 Acetaminophen 325 Mg Tablet PO 650 mg Q4H PRN Administration Mild Pain (1-3) or Fever Atorvastatin Calcium 80 mg 09/27/24 18:00 09/28/24 16:59 Atorvastatin 40 Mg Tablet PO 80 mg QPM TYREE Administration Calcium Carbonate 250 mg 09/28/24 09:00 09/29/24 09:50 Calcium Carbonate (Oscal) 250 Mg Tablet PO 250 mg DAILY TYREE Administration Dicyclomine HCl 10 mg 09/27/24 10:25 09/29/24 09:50 Dicyclomine Hcl 10 Mg Capsule PO 10 mg BID TYREE Administration Sodium Chloride 1,000 mls @ 125 mls/hr 09/27/24 03:40 09/29/24 05:53 Normal Saline Iv IV CONT Not Given .Q8H TYREE Ceftriaxone Sodium 1 gm in 50 mls @ 100 mls/hr 09/27/24 07:00 09/29/24 07:04 Rocephin 1 Gm/Ns 50 Ml IVPB Infused Q24H TYREE Infusion Metronidazole 500 mg in 100 mls @ 100 mls/hr 09/27/24 07:30 09/29/24 13:02 Flagyl 500 Mg/Iso Soln 100 Ml IVPB 100 mls/hr Q8HR TYREE Administration Lisinopril 10 mg 09/28/24 09:00 09/29/24 09:50 Lisinopril 10 Mg Tablet PO 10 mg DAILY TYREE Administration Metoprolol Succinate 25 mg 09/27/24 21:00 09/29/24 09:49 Metoprolol Succinate Ext Rel 25 Mg Tabcr PO 25 mg Q12HR TYREE Administration Morphine Sulfate 4 mg 09/27/24 03:36 09/29/24 05:46 Morphine Sulfate (*Crx) 4 Mg/Ml Inj IV PUSH 4 mg Q2H PRN Administration Pain Rated 7-10 Non-Formulary Medication 150 mg 10/27/24 09:00 Risedronate PO 11/26/24 08:59 MONTHLY [facility] Ondansetron HCl 4 mg 09/27/24 03:36 09/27/24 07:30 Ondansetron Inj 4 Mg/2 Ml Vial IV PUSH 4 mg Q4H PRN Administration Nausea Pantoprazole Sodium 40 mg 09/27/24 09:00 09/29/24 09:49 Pantoprazole Sodium Iv 40 Mg Vial IV PUSH 40 mg QAM TYREE Administration Perflutren Lipid Microsphere 0 ml 09/27/24 14:37 Perflutren Lipid Microspheres 1.5 Ml Vial Diluted To 10 Ml Total Volume IV PUSH 09/30/24 14:37 ONCE PRN adequate visualization Protocol Simethicone 80 mg 09/29/24 10:00 09/29/24 09:54 Simethicone 80 Mg Tab.Chew PO 80 mg Q8H TYREE Administration Vitamin D 125 mcg 09/28/24 09:00 09/29/24 09:49 Cholecalciferol (Vitamin D3) 125 Mcg (5,000 Units) Tablet PO 125 mcg DAILY TYREE Administration Radiology Results: ITS Impressions Chest X-Ray 09/27/24 00:31 IMPRESSION: No focal infiltrate or effusion. Head CT 09/27/24 00:33 Impression: No acute intracranial hemorrhage or suspicious mass effect. Inflammatory sinus disease Abdomen/Pelvis CT 09/27/24 05:53 Impression: Suspected infectious/inflammatory colitis involving the distal transverse colon, descending colon, and sigmoid colon. No bowel obstruction. No abscess or free air. 1.5 cm probable cystic mass in the pancreatic head/neck. Consider follow-up MR/MRCP to further evaluate. MRCP 09/28/24 12:01 IMPRESSION: 1. Prominent edematous wall thickening of the distal transverse and descending colon consistent with colitis which could be infectious, inflammatory or ischemic in etiology. 2. 1.6 x 1.2 cm cystic lesion at the head of the pancreas with a few subcentimeter cystic lesions at the tail the pancreas which appear to demonstrate communication with the main pancreatic duct favoring either pseudocysts and dilated pancreatic side branches related to prior acute pancreatitis or intraductal papillary mucinous neoplasm (IPMN) versus less likely mucinous cystic neoplasm (MCN), and the less common serous cystadenoma and neuroendocrine tumor. Correlate for history of pancreatitis. Consider 2 year follow-up pre and postcontrast MRI. 3. Small amount of likely reactive ascites in the abdomen and pelvis. 4. Small bilateral pleural effusions with dependent consolidation the bilateral lower lobes which could represent atelectasis or pneumonia. Labs Labs: Laboratory Results - last 24 hr 09/29/24 05:24 WBC 9.5 RBC 3.57 L Hgb 11.5 L Hct 34.6 L MCV 96.9 MCH 32.2 MCHC 33.2 RDW 12.4 Plt Count 140 L MPV 9.7 Immature Gran % (Auto) 0.5 Neut % (Auto) 71.0 Lymph % (Auto) 19.2 [place] % (Auto) 6.5 Eos % (Auto) 2.4 Baso % (Auto) 0.4 Lymph # (Auto) 1.82 [place] # (Auto) 0.6 Eos # (Auto) 0.2 Baso # (Auto) 0.0 Abs Immat Gran (auto) 0.05 H Absolute Neuts (auto) 6.7 Absolute Nucleated RBC 0.000 Nucleated RBC % 0.0 Sodium 138 Potassium 3.6 Chloride 110 H Carbon Dioxide 21 L Anion Gap 7 BUN 6 L Creatinine 0.48 L Estim Creat Clear Calc 67 Estimated GFR > 60 Glucose 100 Calcium 7.7 L Total Bilirubin 0.7 AST 38 H ALT 26 Alkaline Phosphatase 25 L Total Protein 6.0 L Albumin 3.4 L
[2024-09-29 15:07] VITALS: BP 127/60; PULSE 69; RESP 16; TEMP 36.8; O2SAT 99
[2024-09-29] MEDS: ATORVASTATIN 40 MG TABLET 80 MG PO (17:43)
[2024-09-29] MEDS: ACETAMINOPHEN 325 MG TABLET 650 MG PO (20:38)
[2024-09-29 20:40] VITALS: PULSE 75
[2024-09-29 21:09] VITALS: BP 141/54; PULSE 75; RESP 18; TEMP 36.8; O2SAT 99
[2024-09-30] MEDS: SIMETHICONE 80 MG TAB.CHEW PO ×2 (02:20→09:48)
[2024-09-30 05:47] LABS: Basophils Percent Auto 0.5 % (0.2-1.2); Eosinophils Absolute Auto 0.3 K/mm3 (0-0.3); Eosinophils Percent Auto 4.5 % (0-4.4); Hemoglobin 11.3 g/dL (12.0-15.0); Immature Granulocyte Absolute 0.02 K/mm3 (0.00-0.031); Immature Granulocyte Percent A 0.3 % (0-0.5); Lymphocytes Absolute Auto 1.42 K/mm3 (0.9-3.2); Lymphocytes Percent Auto 23.5 % (18.3-44.2); Mean Corpuscular HGB Conc 34.2 g/dl (32-36); Mean Corpuscular Volume 93.5 fl (80-100); Mean Platelet Volume 9.6 fl (7.4-10.4); Monocytes Absolute Auto 0.4 K/mm3 (0.1-0.6); Monocytes Percent Auto 6.8 % (2.6-8.5); Neutrophils Absolute Auto 3.9 K/mm3 (1.3-6.7); Neutrophils Percent Auto 64.4 % (45.5-73.1); Platelet Count Result 148 k/mm3 (150-375); Red Blood Count 3.53 M/mm3 (4.2-5.4); Red Cell Distribution Width 12.1 % (11.5-14.5); White Blood Count 6.1 K/mm3 (4.5-10.0)
[2024-09-30 06:00] VITALS: BP 148/67; PULSE 72; RESP 18; TEMP 36.8; O2SAT 96
[2024-09-30 06:07] LABS: Potassium 3.3 mmol/L (3.4-5.0)
[2024-09-30 06:18] LABS: Alanine Aminotransferase 27 U/L (6-35); Albumin Level 3.4 g/dL (3.5-5.1); Alkaline Phosphatase 34 U/L (38-126); Anion Gap 7 mmol/L (4-12); Aspartate Amino Transferase 36 U/L (14-36); Bilirubin,Total 0.8 mg/dL (0.2-1.3); Blood Urea Nitrogen 5 mg/dL (7-17); Calcium 8.4 mg/dL (8.4-10.2); Carbon Dioxide 25 mmol/L (22-30); Chloride 109 mmol/L (98-107); Estimated CRCL calculation 66 ml/min; Estimated Glomerular Filt Rate > 60; Glucose 104 mg/dL (65-110); Sodium 141 mmol/L (137-145); Total Protein 6.2 g/dL (6.3-8.2)
[2024-09-30 09:46] VITALS: PULSE 76
[2024-09-30] MEDS: METOPROLOL SUCCINATE EXT REL 25 MG TABCR PO (09:46)
[2024-09-30] MEDS: PANTOPRAZOLE SODIUM IV 40 MG VIAL IV PUSH (09:48)
[2024-09-30] MEDS: CHOLECALCIFEROL (VITAMIN D3) 125 MCG (5,000 UNITS) TABLET PO (09:48)
[2024-09-30] MEDS: DICYCLOMINE HCL 10 MG CAPSULE PO (09:48)
[2024-09-30] MEDS: CALCIUM CARBONATE (OSCAL) 250 MG TABLET PO (09:48)
[2024-09-30] MEDS: lisinopriL 10 MG TABLET PO (09:48)
[2024-09-30] MEDS: POTASSIUM CHLORIDE 20 MEQ PACKET (FOR LIQUID) PO (09:51)
--- NOTE | 2024-09-30 12:49 | PM.DS ---
DS: Admitting Diagnosis Discharge Date 09/30/2024 Admitting Diagnosis Colitis, pancreatic mass, syncope DS: Discharge Diagnosis Discharge Diagnosis (1) Colitis: Code(s): K52.9 - Noninfective gastroenteritis and colitis, unspecified Status: Acute (2) Pancreatic mass: Code(s): K86.89 - Other specified diseases of pancreas Status: Acute (3) Vasovagal syncope: Code(s): R55 - Syncope and collapse Status: Acute (4) Hypertension: Code(s): I10 - Essential (primary) hypertension Status: Acute (5) Elevated liver transaminase level: Code(s): R74.01 - Elevation of levels of liver transaminase levels Status: Acute (6) Hyperlipidemia: Code(s): E78.5 - Hyperlipidemia, unspecified Status: Acute DS: Summary Hospital Course Reason for hospitalization: Syncope, abdominal pain Hospital Course: Belen Pineda is a 79-year-old female with a past medical history of HTN and osteoporosis who presents to the hospital for abdominal pain and a syncopal episode that occurred on the day of admission. Patient states that for the past several days she has felt off and has had intermittent lower abdominal pain. She has a history of constipation, usually only passing stool every 3 days while on a high fiber diet along with regular miralax. She states that her usual pattern includes constipation with strenuous straining, which then progressed to diarrhea after having to use MiraLax or other stool softeners. She says that this has been going on since the 1960s after she had back surgery. She has previously had a barium enema which showed a ?kinked intestine?, and is not able to have a colonoscopy performed. She states that she was straining so much at home to pass a stool, that she caused herself to become diaphoretic and have a syncopal episode for roughly 5 seconds. This was witnessed by , denies falling to the ground or hitting her head, stating that she just slumped over for a few seconds. She states that her lower abdominal pain started prior to arrival to emergency department. Endorses some nausea and vomiting in the ambulance but no episodes since then. He denies any abdominal bloating, dysphagia, regurgitation, appetite loss, unexplained weight loss, or hematochezia. Takes a daily aspirin 81 mg but denies excessive NSAID or anticoagulation use. Denies smoking history, nondrinker. Family history of pancreatic cancer. No family history of IBD. In ED: 37.6C, 73 HR, 16 RR, 121/59, 100% on RA CBC unremarkable. No electrolyte abnormalities. Lactic acid was2.7, decreased to 2.2 after fluid bolus. Mg 3.1. CXR: No focal infiltrate or effusion. Head CT: No acute intracranial hemorrhage or suspicious mass effect. Inflammatory sinus disease Abd/Pelvis CT: Suspected infectious/inflammatory colitis involving the distal transverse colon, descending colon, and sigmoid colon. No bowel obstruction. No abscess or free air. 1.5 cm probable cystic mass in the pancreatic head/neck. Consider follow-up MR/MRCP to further evaluate EKG: Sinus rhythm, LAD, LBBB GI was consulted regarding colitis/chronic constipation. Last colonoscopy was performed more than 5 years ago in [place], where The patient is from. Colonoscopy was unsuccessful, barium enema was attempted and was normal. Upon hospitalization today, patient had a CT scan which showed suspected infectious/inflammatory colitis involving the distal transverse colon, descending colon and sigmoid colon. GI agree with checking fecal calprotectin, stool culture, C diff, continuing IV antibiotics and PPI, and starting dicyclomine. Cardiology consulted regarding basally 0 syncope. Agree that given history, this is likely a syncopal episode that is face a vagal in nature, as the patient had this episode that occurred while straining during a bowel movement. Troponins were negative, patient denies any chest pain at any time, no redness seen on telemetry, and echocardiogram was obtained which was unremarkable. Thirty day cardiac event monitor will be recommended once the patient returns back to [place]. Patient was monitor the hospital for infectious/inflammatory colitis. At 1 point on 09/29 she did experience passage of blood clots in her stool, which she has been told can be expected findings for colitis. On 09/30 she felt much better and endorsed desire for being discharged. MRCP was obtained on 09/28 which showed Prominent edematous wall thickening of the distal transverse and descending colon consistent with colitis which could be infectious, inflammatory or ischemic in etiology and 1.6 x 1.2 cm cystic lesion at the head of the pancreas with a few subcentimeter cystic lesions at the tail the pancreas which appear to demonstrate communication with the main pancreatic duct favoring either pseudocysts and dilated pancreatic side branches related to prior acute pancreatitis or intraductal papillary mucinous neoplasm (IPMN) versus less likely mucinous cystic neoplasm (MCN), and the less common serous cystadenoma and neuroendocrine tumor. Correlate for history of pancreatitis. Consider 2 year follow-up pre and postcontrast MRI. Small bilateral pleural effusions with dependent consolidation the bilateral lower lobes which could represent atelectasis or pneumonia. Small amount of likely reactive ascites in the abdomen and pelvis.Findings in the bilateral lobes likely atelectasis, correlate with lack of leukocytosis, afebrile, and lack of shortness of breath/cough consistent with incidental findings. Low likelihood of pneumonia. Leukocytosis has improved and vital signs remained stable. No evidence of acute GI bleed at this time. Patient is otherwise hemodynamically stable for discharge with appropriate follow-up in the outpatient setting with her PCP. Was stressed importance of follow-up with her PCP regarding the MRCP findings with the pancreatic cystic lesion. Will give additional doses of cefdinir and Flagyl for colitis. Status at Discharge Functional status at discharge: independent ambulation Overall status at discharge: patient is back to baseline Time Spent with Patient Time attestation: Total time spent providing and/or coordinating discharge services: 41 Exam Narrative: Gen - well appearing female in no acute respiratory distress who is nontoxic-appearing lying semi recumbent in bed HEENT - normocephalic. Atraumatic. Pupils equal round and reactive. Sclera clear and anicteric. Nares patent. Oropharynx was clear. No oral lesions. Moist mucous membranes. Neck - neck was supple. No dominant adenopathy, thyromegaly or masses. 2+ carotid upstrokes without bruits. Chest - lungs are clear to auscultation bilaterally. No wheezes or crackles. Breast exam was deferred. CV - heart was regular rate and rhythm. S1-S2. No murmurs gallops or rubs. Abd - abdomen was soft. Nontender. Nondistended. Positive bowel sounds. No organomegaly or masses. Ext - no clubbing, cyanosis or edema. 2+ DP pulses bilaterally. Neuro - patient is alert and oriented x4. Strength is 5/5 in both upper and lower extremities. Cranial nerves 2-12 are intact. Speech is clear. Psych - normal mood and affect. Patient is pleasant and cooperative. Skin - warm and dry. No rashes noted. DS: Data Data Completed and Pending Labs on day of discharge: Labs from last 24 hours 09/30/24 05:24 WBC 6.1 RBC 3.53 L Hgb 11.3 L Hct 33.0 L MCV 93.5 MCH 32.0 MCHC 34.2 RDW 12.1 Plt Count 148 L MPV 9.6 Immature Gran % (Auto) 0.3 Neut % (Auto) 64.4 Lymph % (Auto) 23.5 [place] % (Auto) 6.8 Eos % (Auto) 4.5 H Baso % (Auto) 0.5 Lymph # (Auto) 1.42 [place] # (Auto) 0.4 Eos # (Auto) 0.3 Baso # (Auto) 0.0 Abs Immat Gran (auto) 0.02 Absolute Neuts (auto) 3.9 Absolute Nucleated RBC 0.000 Nucleated RBC % 0.0 Sodium 141 Potassium 3.3 L Chloride 109 H Carbon Dioxide 25 Anion Gap 7 BUN 5 L Creatinine 0.49 L Estim Creat Clear Calc 66 Estimated GFR > 60 Glucose 104 Calcium 8.4 Total Bilirubin 0.8 AST 36 ALT 27 Alkaline Phosphatase 34 L Total Protein 6.2 L Albumin 3.4 L Discharge Plan Discharge Attending physician on discharge: June Bear Consulting providers: Elton Mccrary; Won Natarajan; Martha Fink Discharging Clinician: Elton Mccrary Anticipated Discharge Date/Time: 09/30/24 12:37 Patient Disposition: Home Activity: as tolerated Diet: as tolerated Discharge Instructions: Discharge disposition: Stable Take medications as prescribed. He will be screened 6 additional doses of cefdinir to be taken once every 12 hours (twice daily), and 10 additional doses of Flagyl to be taken once every 8 hours (3 times daily). Monitor blood pressures Take caution while standing, rising, or moving Change positions slowly taking a break between each position change If you standing feel dizzy sit back down and take a break Encouraged to continue with yearly vaccinations Return to the emergency department if he developed sudden shortness of breath, chest pain, nausea, vomiting, upset stomach or intractable diarrhea Return to the emergency department if you develop fever greater than 101.5 Follow-up with the primary care physician within 1-2 weeks regarding hospitalization. Follow-up with your PCP regarding your MRCP findings which showed a cystic lesion at the head of the pancreas. They will likely want to do follow-up imaging with a pre and postcontrast abdominal MRI. You will also be given a 30 day cardiac event monitor to be monitored by your primary care physician. Thank you for [facility] for your healthcare needs Patient Instructions: Antibiotic Form Patient Language: Portuguese Stand Alone Forms: General Discharge Information Follow-up/Referrals: Woody, Clinton [Other] Discharge Medications: New cefdinir 300 mg capsule 300 mg PO Q12H Qty: 6 0RF metronidazole 500 mg tablet 500 mg PO Q8H Qty: 11 0RF Continued atorvastatin 80 mg tablet 80 mg PO QPM lisinopril 10 mg tablet 10 mg PO DAILY metoprolol succinate 25 mg tablet extended release 24 hr 25 mg PO Q12H risedronate 150 mg tablet 150 mg PO MONTHLY Rx Instructions: TAKES LAST MONDAY OF THE MONTH cholecalciferol (vitamin D3) 125 mcg (5,000 unit) tablet 125 mcg PO DAILY calcium 250 mg tablet 250 mg PO DAILY magnesium 100 mg capsule 100 mg PO DAILY Other Ambulatory Orders: [place] cardiac event monitor (Routine) Timeframe: 1 Month Location: Determined by Patient Ordered By: Elton Mccrary Date of admission: 09/28/24 12:44 Primary Care Provider: WoodyClinton Admitting Provider: Lexie Peterson Attending physician on admission: Lexie Peterson Condition: Stable Quality VTE Prophylaxis VTE prophylaxis: mechanical ordered
--- NOTE | 2024-09-30 12:50 | P.PNGI_ITS ---
Progress Note: A&P Assessment and Plan (1) Colitis: Code(s): K52.9 - Noninfective gastroenteritis and colitis, unspecified Status: Acute Assessment and Plan: probably ischemic but much better, normalization of lactic acid she can go home today abdominal pain almost gone (2) Lower abdominal pain: Code(s): R10.30 - Lower abdominal pain, unspecified Status: Acute Assessment and Plan: resolved (3) Lactic acidosis: Code(s): E87.20 - Acidosis, unspecified Status: Acute Assessment and Plan: resolved (4) Vasovagal syncope: Code(s): R55 - Syncope and collapse Status: Acute Assessment and Plan: cardiology on board (5) Elevated liver transaminase level: Code(s): R74.01 - Elevation of levels of liver transaminase levels Status: Acute (6) Chronic constipation: Code(s): K59.09 - Other constipation Status: Acute Subjective Date/time seen: 09/30/24 12:50 Interval history: had soft stool without blood abdominal pain almost gone and she is feeling like going home today Review of Systems Review of Systems: All systems reviewed & are unremarkable except as noted in HPI and below Exam Const: General: comfortable and no acute distress HENMT: Face/Nose/Sinus: Normal nares present Eyes: General: appearance normal, both eyes and all related structures Neck: Neck: no JVD Resp: Auscultation: clear to auscultation bilaterally Cardio: Rate: regular rate Rhythm: regular rhythm GI: Inspection: non-distended GI Palp: Yes Soft to palpation and No Tenderness to palpation present (GI) Auscultation: normal bowel sounds Skin: General skin exam: normal color Neuro: General: gait normal Speech: normal speech Extrem: General: normal to inspection Psych: Mental Status: mental status grossly normal Objective Data Vital Signs Vital Signs: Vital Signs - 24 hr 09/29/24 15:07 09/29/24 20:30 09/29/24 20:40 Temperature 98.2 F Pulse Rate 69 75 Respiratory Rate 16 Blood Pressure 127/60 Pulse Oximetry 99 Oxygen Delivery Room Air 09/29/24 21:09 09/30/24 06:00 09/30/24 09:46 Temperature 98.3 F 98.3 F Pulse Rate 75 72 76 Respiratory Rate 18 18 Blood Pressure 141/54 H 148/67 H Pulse Oximetry 99 96 Oxygen Delivery Intake/Output Intake/Output: Intake & Output 09/27/24 09/28/24 09/29/24 09/30/24 23:59 23:59 23:59 23:59 Intake Total 3590 3520 3970 240 Balance 3590 3520 3970 240 Meds/Results Medications: Active Medications Generic Name Dose Route Start Last Admin Trade Name Freq PRN Reason Stop Dose Admin Acetaminophen 650 mg 09/27/24 03:36 09/29/24 20:38 Acetaminophen 325 Mg Tablet PO 650 mg Q4H PRN Administration Mild Pain (1-3) or Fever Atorvastatin Calcium 80 mg 09/27/24 18:00 09/29/24 17:43 Atorvastatin 40 Mg Tablet PO 80 mg QPM TYREE Administration Calcium Carbonate 250 mg 09/28/24 09:00 09/30/24 09:48 Calcium Carbonate (Oscal) 250 Mg Tablet PO 250 mg DAILY TYREE Administration Cefdinir 300 mg 10/01/24 09:00 Cefdinir 300 Mg Capsule PO 10/03/24 21:01 Q12HR [facility] Dicyclomine HCl 10 mg 09/27/24 10:25 09/30/24 09:48 Dicyclomine Hcl 10 Mg Capsule PO 10 mg BID TYREE Administration Sodium Chloride 1,000 mls @ 125 mls/hr 09/27/24 03:40 09/30/24 12:45 Normal Saline Iv IV CONT Not Given .Q8H TYREE Lisinopril 10 mg 09/28/24 09:00 09/30/24 09:48 Lisinopril 10 Mg Tablet PO 10 mg DAILY TYREE Administration Metoprolol Succinate 25 mg 09/27/24 21:00 09/30/24 09:46 Metoprolol Succinate Ext Rel 25 Mg Tabcr PO 25 mg Q12HR TYREE Administration Metronidazole 500 mg 09/30/24 14:00 Metronidazole 500 Mg Tablet PO 10/03/24 22:01 Q8HR [facility] Morphine Sulfate 4 mg 09/27/24 03:36 09/29/24 05:46 Morphine Sulfate (*Crx) 4 Mg/Ml Inj IV PUSH 4 mg Q2H PRN Administration Pain Rated 7-10 Non-Formulary Medication 150 mg 10/27/24 09:00 Risedronate PO 11/26/24 08:59 MONTHLY [facility] Ondansetron HCl 4 mg 09/27/24 03:36 09/27/24 07:30 Ondansetron Inj 4 Mg/2 Ml Vial IV PUSH 4 mg Q4H PRN Administration Nausea Pantoprazole Sodium 40 mg 09/27/24 09:00 09/30/24 09:48 Pantoprazole Sodium Iv 40 Mg Vial IV PUSH 40 mg QAM TYREE Administration Perflutren Lipid Microsphere 0 ml 09/27/24 14:37 Perflutren Lipid Microspheres 1.5 Ml Vial Diluted To 10 Ml Total Volume IV PUSH 09/30/24 14:37 ONCE PRN adequate visualization Protocol Simethicone 80 mg 09/29/24 10:00 09/30/24 09:48 Simethicone 80 Mg Tab.Chew PO 80 mg Q8H TYREE Administration Vitamin D 125 mcg 09/28/24 09:00 09/30/24 09:48 Cholecalciferol (Vitamin D3) 125 Mcg (5,000 Units) Tablet PO 125 mcg DAILY TYREE Administration Radiology Results: ITS Impressions Chest X-Ray 09/27/24 00:31 IMPRESSION: No focal infiltrate or effusion. Head CT 09/27/24 00:33 Impression: No acute intracranial hemorrhage or suspicious mass effect. Inflammatory sinus disease Abdomen/Pelvis CT 09/27/24 05:53 Impression: Suspected infectious/inflammatory colitis involving the distal transverse colon, descending colon, and sigmoid colon. No bowel obstruction. No abscess or free air. 1.5 cm probable cystic mass in the pancreatic head/neck. Consider follow-up MR/MRCP to further evaluate. MRCP 09/28/24 12:01 IMPRESSION: 1. Prominent edematous wall thickening of the distal transverse and descending colon consistent with colitis which could be infectious, inflammatory or ischemic in etiology. 2. 1.6 x 1.2 cm cystic lesion at the head of the pancreas with a few subcentimeter cystic lesions at the tail the pancreas which appear to demonstrate communication with the main pancreatic duct favoring either pseudocysts and dilated pancreatic side branches related to prior acute pancreatitis or intraductal papillary mucinous neoplasm (IPMN) versus less l ikely mucinous cystic neoplasm (MCN), and the less common serous cystadenoma and neuroendocrine tumor. Correlate for history of pancreatitis. Consider 2 year follow-up pre and postcontrast MRI. 3. Small amount of likely reactive ascites in the abdomen and pelvis. 4. Small bilateral pleural effusions with dependent consolidation the bilateral lower lobes which could represent atelectasis or pneumonia. Labs Labs: Laboratory Results - last 24 hr 09/30/24 05:24 WBC 6.1 RBC 3.53 L Hgb 11.3 L Hct 33.0 L MCV 93.5 MCH 32.0 MCHC 34.2 RDW 12.1 Plt Count 148 L MPV 9.6 Immature Gran % (Auto) 0.3 Neut % (Auto) 64.4 Lymph % (Auto) 23.5 [place] % (Auto) 6.8 Eos % (Auto) 4.5 H Baso % (Auto) 0.5 Lymph # (Auto) 1.42 [place] # (Auto) 0.4 Eos # (Auto) 0.3 Baso # (Auto) 0.0 Abs Immat Gran (auto) 0.02 Absolute Neuts (auto) 3.9 Absolute Nucleated RBC 0.000 Nucleated RBC % 0.0 Sodium 141 Potassium 3.3 L Chloride 109 H Carbon Dioxide 25 Anion Gap 7 BUN 5 L Creatinine 0.49 L Estim Creat Clear Calc 66 Estimated GFR > 60 Glucose 104 Calcium 8.4 Total Bilirubin 0.8 AST 36 ALT 27 Alkaline Phosphatase 34 L Total Protein 6.2 L Albumin 3.4 L
[2024-09-30] MEDS: metroNIDAZOLE 500 MG TABLET PO (12:57)
[2024-10-04 18:28] LABS: Calprotectin, Stool. 3220 mcg/g
== END 2024-09-30 13:59 | disposition home or self-care (01) | DRG 392 ==
LOC: ANHED 09-27 03:28 → ANH3MEDSUR 09-27 04:51 → ANH3MED 09-27 04:54
PROVIDERS: Internal Medicine Gastroenterology; Nurse Practitioner Family; Admitting Provider Internal Medicine; Emergency Provider Emergency Medicine; Visit Provider Physician Assistant
DX: K52.9 Noninfective gastroenteritis and colitis, unspecified (principal); E87.21 Acute metabolic acidosis; R55 Syncope and collapse; K59.09 Other constipation; K86.89 Other specified diseases of pancreas; I10 Essential (primary) hypertension; E78.5 Hyperlipidemia, unspecified; M81.0 Age-related osteoporosis without current pathological fracture; R74.01 Elevation of levels of liver transaminase levels; Z80.0 Family history of malignant neoplasm of digestive organs
CPT/HCPCS: 36415; 70450; 71045; 74177; 74183; 76376; 80053; 81001; 83605; 83690; 83735; 83993; 84484; 85025; 85055; 85610; 85730; 86850; 86900; 86901; 87045; 87427; 87449; 87493; 93005; 93306; 96361; 96365; 96366; 96367; 96375; 96376; 99285; A9270; A9577; G0378; J0696; J1836; J2270; J2405; J2470; J7030; Q9967

== ENCOUNTER 2024-10-17 10:03 | Outpatient (CLI) | payer MEDICARE, OTHER, SELFPAY ==
--- OUTSIDE RECORDS SUMMARY | 2024-10-17 10:11 | XMS_ITS | Clinical Summary ---
Author Organization [facility] Address [address] [place] [id number] Care Team Providers Care Groutman Name Role Phone Unavailable Primary Care Provider Unavailabl e Social History Tobacco Use Types Packs/Day Years Used Date Smoking Tobacco: Never Assessed Comments Unknown Sex and Gender Information Value Date Recorded Sex Assigned at Not on file Legal Sex Female 4:03 PM CDT Gender Identity Not on file Sexual Orientation Not on file Plan of Treatment Health Maintenance Due Date Last Done Comments DTaP, Tdap and Td Vaccines ( 1 - Tdap) 1963 Pneumococcal Vaccine: 50+ Ye ars (1 of 1 - PCV) 1994 Zoster Vaccines (1 of 2) 1994 Dexa Scan (General) 2009 RSV Immunization or 60+ Years (1 - 1-dose 75+ series) 2019 COVID-19 Vaccine (2023-2 5 season) 2023 Meningococcal B Vaccine Aged Out No l onger eligible based on patient's age to complete this topic Meningococcal Vaccine Aged Out No ashley trell eligible based on patient's age to complete this topic RSV Immunizations Under 20 Months Aged Out No longer eligible based on patient's age to complete this topic
--- OUTSIDE RECORDS SUMMARY | 2024-10-17 10:11 | XMS_ITS | Data Portability ---
Author Organization [place] [facility] Certified Pharmacy Technician, autoContract Address [address] [place] [address] Care Team Providers Care Authorizer Name Role Phone HALINA JOHNSONALD Referring Provider [phone] Assessment Encounter Date Assessment Date Assessment LastModified [...] . Lab C-reacti ve protein (CRP) 2012 [email or web address] Not available 4 18:19:14 CPK 2012 [email or web address] Not available 4 18:19:14 ESR, westergr en 2012 [email or web address] Not available 4 18:19:14 vitamin B12 & folate 2012 013 GELY Not available 3 11:18:20 C-reacti ve protein (CRP) 2012 013 GELY Not available 3 10:52:19 ESR, westergr en 2012 013 GELY Not available 3 10:52:18 CPK 2012 013 [email or web address] Not available 4 18:19:13 cyclic citrulli nated peptide ccp Ab igg 2012 013 Not available 4 18:19:13 comprehe nsive metaboli c panel 2012 GELY Not available 3 10:52:17 CBC (include s diff/crow telets) 2012 [email or web address] Not available 4 18:19:13 rheumato id factor 2012 GELY Not available 3 10:52:18 Referral None recorded . Procedures None recorded . Surgeries None recorded . Imaging None recorded . Medication Orders tramadol 50 mg tablet 2013 014 INTERFACE [facility] #[id number], [address] [place], [address], 4 13:25:55 Arthrote c 50 mg-200 mcg tablet,f ilm-coat ed 2013 014 INTERFACE [facility] #[id number], [address], [place], [address], 4 14:02:44 predniso ne 1 mg tablet 2012 013 [email or web address] [facility] #[id number], [address] [place] [place], [address], 3 12:11:41 hydrocod one 5 mg-aceta minophen 325 mg tablet 2012 013 GELY [facility] #8802, [address] [place] [place], [address], 3 03:09:53 Patient TargetsNo targets recorded. Patient InstructionsNo instructions recorded. Reason for Referral None Reported. Results Created Date Observation Date Name Description Value Unit Range Abnormal Flag Note LastModifiedBy Organization Detail LastModifiedTime 07/07/19 13 07/07/2012 rheum atoid facto r rheumatoid factor 31 IU/mL <14 high Not Available [employer] ([facility]) [address] [place] [address], [place], [address], 07/07/2012 07:55:16 02/05/20 13 02/05/2013 C-dewayne ctive prote in (CRP) C-reactive protein, quant 0.8 mg/L 0.0-4. 9 Not Available [facility] ([facility]) [address] [place], [address], 02/07/2013 09:24:23 02/05/20 13 02/05/2013 creat ine kinas e (CK), total creatine kinase,total ,serum 271 U/L 24-173 high Not Available [facility] ([facility]) [address] [place], [address], 02/07/2013 09:24:23 02/05/20 13 02/05/2013 ESR, weste rgren sedimentatio n rate-westerg alejandra 14 mm/HR 0-32 Not Available [facility] ([facility]) [address] [place], [address], 02/07/2013 09:24:23 02/05/20 13 02/06/2013 cycli c citru llina mauro pepti de ccp Ab iga/i gg ccp antibodies IgG/IgA 11 units 0-19 negat tomeka <20 weak posit tomeka 20 - 39 moder ate posit tomeka 40 - 59 stron g posit tomeka >59 Not Available [facility] ([facility]) [address] [place], [address], 02/07/2013 09:24:22 02/05/20 13 02/05/2013 rheum atoid facto r RA latex turbid. 27.9 IU/mL 0.0-13 .9 high Not Available [facility] ([facility]) [address] [place], [address], 02/07/2013 09:24:22 10/28/20 13 02/05/2013 comp. metab olic panel (14) glucose, serum 134 mg/dL 65-99 high Not Available [facility] ([facility]) [address] [place] [address], [address], 02/07/2013 09:24:22 02/05/20 13 02/05/2013 comp. metab olic panel (14) BUN 12 mg/dL 6-24 Not Available [facility] ([facility]) [address] [place] [address], [address], 02/07/2013 09:24:22 02/05/20 13 02/05/2013 comp. metab olic panel (14) creatinine, serum 0.58 mg/dL 0.57-1 .00 Not Available [facility] ([facility]) [address] [place] [address], [address], 02/07/2013 09:24:22 02/05/20 13 02/05/2013 comp. metab olic panel (14) eGFR if nonafricn AM 112 mL/mi n/1.7 3 >59 Not Available [facility] ([facility]) [address] [place] [address], [address], 02/07/2013 09:24:22 02/05/20 13 02/05/2013 comp. metab olic panel (14) eGFR if africn AM 129 mL/mi n/1.7 3 >59 Not Available [facility] ([facility]) [address] [place] [address], [address], 02/07/2013 09:24:22 02/05/20 13 02/05/2013 comp. metab olic panel (14) BUN/creatini ne ratio 21 9-23 Not Available [facility] ([facility]) [address] [place] [address], [address], 02/07/2013 09:24:22 02/05/20 13 02/05/2013 comp. metab olic panel (14) sodium, serum 141 mmol/ L 134-14 4 Not Available [facility] ([facility]) [address] [facility] [place], [address], 02/07/2013 09:24:22 02/05/20 13 02/05/2013 comp. metab olic panel (14) potassium, serum 3.7 mmol/ L 3.5-5. 2 Not Available [facility] ([facility]) [address] [facility] [place], [address], 02/07/2013 09:24:22 02/05/20 13 02/05/2013 comp. metab olic panel (14) chloride, serum 105 mmol/ L 97-108 Not Available [facility] ([facility]) [address] [facility] [place], [address], 02/07/2013 09:24:22 02/05/20 13 02/05/2013 comp. metab olic panel (14) carbon dioxide, total 22 mmol/ L 19-28 Not Available [facility] ([facility]) [address] [facility] [place], [address], 02/07/2013 09:24:22 02/05/20 13 02/05/2013 comp. metab olic panel (14) calcium, serum 9.1 mg/dL 8.7-10 .2 Not Available [facility] ([facility]) [address] [facility] [place], [address], 02/07/2013 09:24:22 02/05/20 13 02/05/2013 comp. metab olic panel (14) protein, total, serum 6.8 g/dL 6.0-8. 5 Not Available [facility] ([facility]) [address] [facility] [place], [address], 02/07/2013 09:24:22 02/05/20 13 02/05/2013 comp. metab olic panel (14) albumin, serum 4.5 g/dL 3.5-5. 5 Not Available [facility] ([facility]) [address] [facility] [place], [address], 02/07/2013 09:24:22 02/05/20 13 02/05/2013 comp. metab olic panel (14) globulin, total 2.3 g/dL 1.5-4. 5 Not Available [facility] ([facility]) [address] [place], [address], 02/07/2013 09:24:22 02/05/20 13 02/05/2013 comp. metab olic panel (14) A/G ratio 2.0 1.1-2. 5 Not Available [facility] ([facility]) [address] [place], [address], 02/07/2013 09:24:22 02/05/20 13 02/05/2013 comp. metab olic panel (14) bilirubin, total 0.4 mg/dL 0.0-1. 2 Not Available [facility] ([facility]) [address] [facility], [place], [address], 02/07/2013 09:24:22 02/05/20 13 02/05/2013 comp. metab olic panel (14) alkaline phosphatase, S 35 IU/L 42-107 low eff ectiv e novem 2012 the refer ence inter hipolito for [...] 117 39 - 117 Not Available [facility] ([facility]) [address] [facility], [place], [address], 02/07/2013 09:24:22 02/05/20 13 02/05/2013 comp. metab olic panel (14) AST (SGOT) 24 IU/L 0-40 Not Available [facility] ([facility]) [address] [facility], [place], [address], 02/07/2013 09:24:22 02/05/20 13 02/05/2013 comp. metab olic panel (14) ALT (SGPT) 26 IU/L 0-32 Not Available [facility] ([facility]) [address] [facility], [place], [address], 02/07/2013 09:24:22 02/05/20 13 02/05/2013 CBC w/dif f WBC 5.0 x10e3 /uL 3.4-10 .8 Not Available [facility] ([facility]) [address] [facility], [place], [address], 02/07/2013 09:24:21 02/05/20 13 02/05/2013 CBC w/dif f RBC 4.14 x10e6 /uL 3.77-5 .28 Not Available [facility] ([facility]) [address] [facility], [place], [address], 02/07/2013 09:24:21 02/05/20 13 02/05/2013 CBC w/dif f hemoglobin 13.3 g/dL 11.1-1 5.9 Not Available [facility] ([facility]) [address] [facility], [place], [address], 02/07/2013 09:24:21 02/05/20 13 02/05/2013 CBC w/dif f hematocrit 39.2 % 34.0-4 6.6 Not Available [facility] ([facility]) [address] [facility], [place], [address], 02/07/2013 09:24:21 02/05/20 13 02/05/2013 CBC w/dif f MCV 95 fL 79-97 Not Available [facility] ([facility]) [address] [facility], [place], [address], 02/07/2013 09:24:21 02/05/20 13 02/05/2013 CBC w/dif f MCH 32.1 pg 26.6-3 3.0 Not Available [facility] ([facility]) [address] [facility], [place], [address], 02/07/2013 09:24:21 02/05/20 13 02/05/2013 CBC w/dif f MCHC 33.9 g/dL 31.5-3 5.7 Not Available [facility] ([facility]) [address] [facility], [place], [address], 02/07/2013 09:24:21 02/05/20 13 02/05/2013 CBC w/dif f RDW 13.4 % 12.3-1 5.4 Not Available [facility] ([facility]) [address] [facility], [place], [address], 02/07/2013 09:24:21 02/05/20 13 02/05/2013 CBC w/dif f platelets 247 x10e3 /uL 155-37 9 Not Available [facility] ([facility]) [address] [facility], [place], [address], 02/07/2013 09:24:21 02/05/20 13 02/05/2013 CBC w/dif f neutrophils 47 % 40-74 Not Available [facility] ([facility]) [address] [facility], [place], [address], 02/07/2013 09:24:21 02/05/20 13 02/05/2013 CBC w/dif f lymphs 40 % 14-46 Not Available [facility] ([facility]) [address] [facility], [place], [address], 02/07/2013 09:24:21 02/05/20 13 02/05/2013 CBC w/dif f monocytes 10 % 4-12 Not Available [facility] ([facility]) [address] [place], [address], 02/07/2013 09:24:21 02/05/20 13 02/05/2013 CBC w/dif f eos 2 % 0-5 Not Available [facility] ([facility]) [facility], [place], [address], 02/07/2013 09:24:21 02/05/20 13 02/05/2013 CBC w/dif f basos 1 % 0-3 Not Available [facility] ([facility]) [address] [place], [address], 02/07/2013 09:24:21 02/05/20 13 02/05/2013 CBC w/dif f neutrophils (absolute) 2.4 x10e3 /uL 1.4-7. 0 Not Available [facility] ([facility]) [address] [place], [address], 02/07/2013 09:24:21 02/05/20 13 02/05/2013 CBC w/dif f lymphs (absolute) 2.0 x10e3 /uL 0.7-3. 1 Not Available [facility] ([facility]) [address] [place], [address], 02/07/2013 09:24:21 02/05/20 13 02/05/2013 CBC w/dif f monocytes(ab solute) 0.5 x10e3 /uL 0.1-0. 9 Not Available [facility] ([facility]) [address] [place] [address], [address], 02/07/2013 09:24:21 02/05/20 13 02/05/2013 CBC w/dif f eos (absolute) 0.1 x10e3 /uL 0.0-0. 4 Not Available [facility] ([facility]) [address] [place] [address], [address], 02/07/2013 09:24:21 02/05/20 13 02/05/2013 CBC w/dif f baso (absolute) 0.0 x10e3 /uL 0.0-0. 2 Not Available [facility] ([facility]) [address] [facility], [place], [address], 02/07/2013 09:24:21 02/05/20 13 02/05/2013 CBC w/dif f immature granulocytes 0 % 0-2 Not Available [facility] ([facility]) [address] [facility], [place], [address], 02/07/2013 09:24:21 02/05/20 13 02/05/2013 CBC w/dif f immature grans (abs) 0.0 x10e3 /uL 0.0-0. 1 Not Available [facility] ([facility]) [address] [facility], [place], [address], 02/07/2013 09:24:21 04/08/20 13 04/09/2013 CBC w/dif f WBC 5.9 x10e3 /uL 3.4-10 .8 Not Available [facility] ([facility]) [address] [place] [address], [place], [address], 04/09/2013 11:18:18 04/08/20 13 04/09/2013 CBC w/dif f RBC 4.26 x10e6 /uL 3.77-5 .28 Not Available [facility] ([facility]) [address] [place] [address], [address], 04/09/2013 11:18:18 04/08/20 13 04/09/2013 CBC w/dif f hemoglobin 13.8 g/dL 11.1-1 5.9 Not Available [facility] ([facility]) [address] [place] [address], [address], 04/09/2013 11:18:18 04/08/20 13 04/09/2013 CBC w/dif f hematocrit 40.0 % 34.0-4 6.6 Not Available [facility] ([facility]) [address] [facility], [place], [address], 04/09/2013 11:18:18 04/08/20 13 04/09/2013 CBC w/dif f MCV 94 fL 79-97 Not Available [facility] ([facility]) [address] [facility], [place], [address], 04/09/2013 11:18:18 04/08/20 13 04/09/2013 CBC w/dif f MCH 32.4 pg 26.6-3 3.0 Not Available [facility] ([facility]) [address] [facility], [place], [address], 04/09/2013 11:18:18 04/08/20 13 04/09/2013 CBC w/dif f MCHC 34.5 g/dL 31.5-3 5.7 Not Available [facility] ([facility]) [address] [facility], [place], [address], 04/09/2013 11:18:18 04/08/20 13 04/09/2013 CBC w/dif f RDW 12.3 % 12.3-1 5.4 Not Available [facility] ([facility]) [address] [facility], [place], [address], 04/09/2013 11:18:18 04/08/20 13 04/09/2013 CBC w/dif f platelets 269 x10e3 /uL 155-37 9 Not Available [facility] ([facility]) [address] [facility], [place], [address], 04/09/2013 11:18:18 04/08/20 13 04/09/2013 CBC w/dif f neutrophils 48 % 40-74 Not Available [facility] ([facility]) [address] [facility], [place], [address], 04/09/2013 11:18:18 04/08/20 13 04/09/2013 CBC w/dif f lymphs 39 % 14-46 Not Available [facility] ([facility]) [address] [facility], [place], [address], 04/09/2013 11:18:18 04/08/20 13 04/09/2013 CBC w/dif f monocytes 8 % 4-12 Not Available [facility] ([facility]) [address] [place] [address], [place], [address], 04/09/2013 11:18:18 04/08/20 13 04/09/2013 CBC w/dif f eos 4 % 0-5 Not Available [facility] ([facility]) [address] [place] [address], [place], [address], 04/09/2013 11:18:18 04/08/20 13 04/09/2013 CBC w/dif f basos 1 % 0-3 Not Available [facility] ([facility]) [address] [place] [address], [place], [address], 04/09/2013 11:18:18 04/08/20 13 04/09/2013 CBC w/dif f neutrophils (absolute) 2.9 x10e3 /uL 1.4-7. 0 Not Available [facility] ([facility]) [address] [place] [address], [place], [address], 04/09/2013 11:18:18 04/08/20 13 04/09/2013 CBC w/dif f lymphs (absolute) 2.3 x10e3 /uL 0.7-3. 1 Not Available [facility] ([facility]) [address] [place] [address], [address], 04/09/2013 11:18:18 04/08/20 13 04/09/2013 CBC w/dif f monocytes(ab solute) 0.5 x10e3 /uL 0.1-0. 9 Not Available [facility] ([facility]) [address] [place] [address], [address], 04/09/2013 11:18:18 04/08/20 13 04/09/2013 CBC w/dif f eos (absolute) 0.2 x10e3 /uL 0.0-0. 4 Not Available [facility] ([facility]) [address] [place], [address], 04/09/2013 11:18:18 04/08/20 13 04/09/2013 CBC w/dif f baso (absolute) 0.1 x10e3 /uL 0.0-0. 2 Not Available [facility] ([facility]) [address] [facility], [place], [address], 04/09/2013 11:18:18 04/08/20 13 04/09/2013 CBC w/dif f immature granulocytes 0 % 0-2 Not Available [facility] ([facility]) [address] [place] [address], [address], 04/09/2013 11:18:18 04/08/20 13 04/09/2013 CBC w/dif f immature grans (abs) 0.0 x10e3 /uL 0.0-0. 1 Not Available [facility] ([facility]) [address] [place] [address], [address], 04/09/2013 11:18:18 04/08/20 13 04/09/2013 compr ehens tomeka metab olic panel glucose, serum 105 mg/dL 65-99 high Not Available [facility] ([facility]) [address] [place] [address], [address], 04/09/2013 11:18:19 04/08/20 13 04/09/2013 compr ehens tomeka metab olic panel BUN 14 mg/dL 8-27 Not Available [facility] ([facility]) [address] [place] [address], [address], 04/09/2013 11:18:19 04/08/20 13 04/09/2013 compr ehens tomeka metab olic panel creatinine, serum 0.56 mg/dL 0.57-1 .00 low Not Available [facility] ([facility]) [address] [facility], [place], [address], 04/09/2013 11:18:19 04/08/20 13 04/09/2013 compr ehens tomeka metab olic panel eGFR if nonafricn AM 96 mL/mi n/1.7 3 >59 Not Available [facility] ([facility]) [address] [place], [address], 04/09/2013 11:18:19 04/08/20 13 04/09/2013 compr ehens tomeka metab olic panel eGFR if africn AM 111 mL/mi n/1.7 3 >59 Not Available [facility] ([facility]) [address] [place], [address], 04/09/2013 11:18:19 04/08/20 13 04/09/2013 compr ehens tomeka metab olic panel BUN/creatini ne ratio 25 11-26 Not Available [facility] ([facility]) [address] [place], [address], 04/09/2013 11:18:19 04/08/20 13 04/09/2013 compr ehens tomeka metab olic panel sodium, serum 142 mmol/ L 134-14 4 Not Available [facility] ([facility]) [address] [place], [address], 04/09/2013 11:18:19 04/08/20 13 04/09/2013 compr ehens tomeka metab olic panel potassium, serum 4.0 mmol/ L 3.5-5. 2 Not Available [facility] ([facility]) [address] [place], [address], 04/09/2013 11:18:19 04/08/20 13 04/09/2013 compr ehens tomeka metab olic panel chloride, serum 103 mmol/ L 97-108 Not Available [facility] ([facility]) [address] [place], [address], 04/09/2013 11:18:19 04/08/20 13 04/09/2013 compr ehens tomeka metab olic panel carbon dioxide, total 24 mmol/ L Not Available [facility] ([facility]) [address] [facility], [place], [address], 04/09/2013 11:18:19 04/08/20 13 04/09/2013 compr ehens tomeka metab olic panel calcium, serum 9.6 mg/dL 8.6-10 .2 Not Available [facility] ([facility]) [address] [facility], [place], [address], 04/09/2013 11:18:19 04/08/20 13 04/09/2013 compr ehens tomeka metab olic panel protein, total, serum 7.1 g/dL 6.0-8. 5 Not Available [facility] ([facility]) [address] [facility], [place], [address], 04/09/2013 11:18:19 04/08/20 13 04/09/2013 compr ehens tomeka metab olic panel albumin, serum 4.7 g/dL 3.6-4. 8 Not Available [facility] ([facility]) [address] [facility], [place], [address], 04/09/2013 11:18:19 04/08/20 13 04/09/2013 compr ehens tomeka metab olic panel globulin, total 2.4 g/dL 1.5-4. 5 Not Available [facility] ([facility]) [address] [facility], [place], [address], 04/09/2013 11:18:19 04/08/20 13 04/09/2013 compr ehens tomeka metab olic panel A/G ratio 2.0 1.1-2. 5 Not Available [facility] ([facility]) [address] [place] [address], [address], 04/09/2013 11:18:19 04/08/20 13 04/09/2013 compr ehens tomeka metab olic panel bilirubin, total 0.3 mg/dL 0.0-1. 2 Not Available [facility] ([facility]) [address] [facility] [place], [address], 04/09/2013 11:18:19 04/08/20 13 04/09/2013 compr ehens tomeka metab olic panel alkaline phosphatase, S 38 IU/L 39-117 low Not Available [facility] ([facility]) [address] [facility], [place], [address], 04/09/2013 11:18:19 04/08/20 13 04/09/2013 compr ehens tomeka metab olic panel AST (SGOT) 23 IU/L 0-40 Not Available [facility] ([facility]) [address] [facility], [place], [address], 04/09/2013 11:18:19 04/08/20 13 04/09/2013 compr ehens tomeka metab olic panel ALT (SGPT) 21 IU/L 0-32 Not Available [facility] ([facility]) [address] [place] [address] [place], [address], 04/09/2013 11:18:19 04/08/20 13 04/09/2013 vitam in B12 & folat e vitamin B12 1272 pg/mL 211-94 6 high Not Available [facility] ([facility]) [address] [facility] [place], [address], 04/09/2013 11:18:20 04/08/20 13 04/09/2013 vitam in B12 & folat e folate (folic acid), serum 18.7 NG/mL >3.0 A serum folat e markos ntrat ion of less than 3.1 NG/mL IS consi dered to repre sent clini shirley defic iency . Not Available [facility] ([facility]) [address] [facility], [place], [address], 04/09/2013 11:18:20 04/08/20 13 04/09/2013 ESR, weste rgren sedimentatio n rate-westerg alejandra 6 mm/HR 0-40 Not Available [facility] ([facility]) [address] [place], [address], 04/09/2013 11:18:20 04/08/20 13 04/09/2013 creat ine kinas e (CK), total creatine kinase,total ,serum 287 U/L 24-173 high Not Available [facility] ([facility]) [address] [place], [address], 04/09/2013 11:18:21 04/08/20 13 04/09/2013 C-dewayne ctive prote in (CRP) C-reactive protein, quant 1.0 mg/L 0.0-4. 9 Not Available [facility] ([facility]) [address] [place], [address], 04/09/2013 11:18:21 04/08/20 13 04/08/2013 repor t comme nts an abbrev CMP14 default SPRCS A hand- writt en panel /prof joe was recei de from your offic e. in accor dance with the lab[facility] rp an uous test code polic y dated october 2002, we have compl eted your order by using the close st curre ntly or forme rl recog nized AMA panel . we have assig monserrat compr ehens tomeka metab olic panel (14), test code #[address] if this IS not the testi ng you wishe d to recei ve on this speci men, pleas e conta ct the labco rp clanaly t inqui ry/te chnic al servi jack depar tment to steph fy the test order . we appre ciate your busin ess. Not Available [facility] ([facility]) [address] [place], [address], 04/09/2013 11:18:22 07/24/19 13 07/23/2012 x-ray , hand No observ ation record ed. [facility] [address], [place], [address], 11/02/2012 03:09:55 07/24/19 13 07/23/2012 x-ray , hand No observ ation record ed. [facility] [address], [place], [address], 11/02/2012 03:09:55 Result Notes None recorded. Problems Name Problem SNOMED Code Status Onset Date Resolution Date Notes Provider Name and Address Organization Details Recorded Time Anemia 440357351 Active Not Available [facility] 3 03:02:23 Arteritis 65555878 Active Not Available [facility] 3 03:02:23 Pain of multiple joints 55124949 Active Not Available [facility] 3 03:02:23 Low back pain 408770629 Active Betty Mastersno MD [address], [place], [address] , [facility] - [facility] Certified Pharmacy Technician 4 13:20:15 Urine finding [id number] Active Not Available [facility] 3 03:02:23 Rheumatoid arthritis 90947110 Active Betty Masterson MD [address] [facility], [place], [address] , [facility] - Rheumatology & Arthritis Certified Pharmacy Technician 4 14:02:52 Vitamin D deficiency 56427638 Active Not Available [facility] 3 03:02:23 Polymyalgia rheumatica 30619033 Active Betty Masterson MD [address], [place], [address] , [facility] - Rheumatology & Arthritis Certified Pharmacy Technician 3 13:59:45 Problem Notes None recorded. Procedures Surgical History Date Name Laterality Status Provider Name and Address Organization Details Recorded Time 06/22/19 13 RAC - Trisha Articular completed Betty Masterson MD [address], [place], [address], [facility] - Rheumatology & Arthritis Certified Pharmacy Technician 06/24/2012 17:23:02 04/10/19 09 Back Surgery completed Pooja Parker [place] - Rheumatology & Arthritis Certified Pharmacy Technician 05/28/2012 17:47:54 04/10/18 92 Other completed Pooja Parker [place] - [facility]ology [facility] Arthritis Certified Pharmacy Technician 05/28/2012 17:47:54 04/10/18 90 Breast Surgery completed Pooja Parker [place] - Rheumatology & Arthritis Certified Pharmacy Technician 05/28/2012 17:47:54 04/10/18 80 Hysterectomy completed Pooja Parker [place] - Rheumatology & Arthritis Certified Pharmacy Technician 05/28/2012 17:47:54 Imaging Results None recorded. Procedure [...] in Arterial blood by Pulse oximetry Systolic And Diastolic Provider Name and Address Organization Details Last Updated DateTime 4 152.4 cm 37888.3 11976 g 30.9 kg/m2 89 /min 99 % 99 % 128/70 mm[Hg] Ilir resendez [place] - Rheumatology & Arthritis Certified Pharmacy Technician 4 13:49:40 Date Recorded Body height Body weight Body mass index (BMI) Heart rate Oxygen saturation Oxygen saturation in Arterial blood by Pulse oximetry Systolic And Diastolic Provider Name and Address Organization Details Last Updated DateTime 4 152.4 cm 71114.0 61270 g 30 kg/m2 81 /min 98 % 98 % 126/68 mm[Hg] Kavya toro [place] - Rheumatology [facility] Arthritis Certified Pharmacy Technician 4 12:48:11 Date Recorded Body height Body weight Body mass index (BMI) Heart rate Body temperature Systolic And Diastolic Provider Name and Address Organization Details Last Updated DateTime 3 152.4 cm 82371.8 9365 g 28.3 kg/m2 88 /min 98.4 [degF] 124/69 mm[Hg] Pallavi Lynn [place] - Rheumatology & Arthritis Certified Pharmacy Technician 3 12:41:04 Date Recorded Body height Body weight Body mass index (BMI) Heart rate Oxygen saturation Oxygen saturation in Arterial blood by Pulse oximetry Systolic And Diastolic Provider Name and Address Organization Details Last Updated DateTime 3 152.4 cm 19731.6 71734 g 31.7 kg/m2 103 /min 98 % 98 % 142/76 mm[Hg] Kavya Burton o [place] - Rheumatology & Arthritis Certified Pharmacy Technician 3 13:56:31 Date Recorded Body height Body weight Body mass index (BMI) Heart rate Oxygen saturation Oxygen saturation in Arterial blood by Pulse oximetry Systolic And Diastolic Provider Name and Address Organization Details Last Updated DateTime 3 152.4 cm 67910.5 9446 g 30.9 kg/m2 93 /min 95 % 95 % 110/74 mm[Hg] Kavya toro [place] - Rhe[facility]ology [facility] Arthritis Certified Pharmacy Technician 3 12:11:40 Social History Question Answer Notes LastModified by [employer] Details LastModified Time Tobacco Smoking Status Never Smoker Not Available [facility] 01/24/2020 03:09:35 Do You Have An Advance Directive? No [id number] Information not available 01/24/2020 What Is Your Level Of Caffeine Consumption? Occasional [id number] Information not available 01/24/2020 How Much Tobacco Do You Chew? None [id number] Information not available 01/24/2020 Education 12 [email or web address] Information not available 05/28/2012 Hours Of Sleep Per Night On Average 6-7 [email or web address] Information not available 05/28/2012 Marital Status [email or web address] Informat ion not available 05/28/2012 How Much Tobacco Do You Smoke? No [id number] Information not available 01/24/2020 Do You Use Sunscreen Routinely? No [id number] Information not available 01/24/2020 Sex: Unknown Functional Status Question Answer Note LastModified by Organizat ion Details LastModified Time What is your level of alcohol consumption? 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 Heavy [id number] Information not available 01/24/2020 Mental Status None recorded. Family History Relationship Description Onset Age of this Age Resolved Age Notes LastModified by Organization Details LastModified Time Father Myocardial infarction 56 previo usly record ed as Heart Attack ([place]) [email or web address] Not available 05/21/2013 12:48:11 Mother Malignant neoplastic disease 71 previo usly record ed as Cancer [email or web address] Not available 05/21/2013 12:48:11 Medical History Condition Response Coronary Artery Disease N Gout N Arthritis (unkown type) N Kidney Stones N COPD N Depression N Pneumonia N Lupus or SLE N Cancer N Stroke N HIV/AIDS N Rheumatoid Arthritis N Fibromyalgia N Kidney Disease N Bad headaches Y UlcerativeColitis/Crohn's Dz N Vasculitis N Catarcts N Recurrent Infections N Sjogren's Syndrome N Celiac Disease N Rheumatic Fever N Stomach ulcers Y CHF N Tuberculosis N Asthma N Jaundice N GERD/Reflux N Sarcoidosis N Glaucoma N Cystic Fibrosis N Pulmonary Embolism/DVT N High Cholesterol N Liver Disease N Osteoarthritis N Anemia N Multiple Sclerosis N Diabetes N Ankylosing Spondylitis N Psoriasis N leukemia N Thyroid disese N Hypertension Y Osteoporosis N Gynecological History Statement/Question Response Menses Monthly N Current Control Method None History of Miscarriages? N Obstetrics History GPAL:G 0 P 0 0 0 0 Immunizations Vaccine Type Date Status Note Provider Nam e and Address Organization Details Recorded Time Pneumococcal conjugate PCV 13 0 completed Ilir armendariz, [facility] Rheumatology & Arthritis Certified Pharmacy Technician 06/21/2012 18:57:16 Influenza, high-dose, trivalent, PF 2 completed Kavya armendariz, [facility] Rheumatology & Arthritis Certified Pharmacy Technician 02/04/2013 13:56:32 Influenza, split virus, trivalent, preservative 3 completed Kavya armendariz, [facility] Rheumatology & Arthritis Certified Pharmacy Technician 05/21/2013 12:48:10 Past Encounters Encounter ID Performer Location Encounter Start Date Encounter Closed Date Diagnosis/Indication Diagnosis SNOMED-CT Code Diagnosis ICD10 Code Diagnosis Note [id number] Betty Masterson MD [facility] [address] [place] [address] 05/28/2012 17:40:47 05/28/2012 19:07:06 [id number] Betty Masters[facility] MD [facility] [address] [place] [address] 06/21/2012 18:51:56 06/21/2012 20:10:03 [id number] Betty Masterson MD [facility] [address] [place] [address] 07/23/2012 12:34:14 07/23/2012 13:03:10 [id number] Betty Masterson MD OFFICE- [place] [address] [place] [address] 02/04/2013 13:51:53 02/04/2013 14:37:14 [id number] Betty Masterson MD OFFICE- [facility] [address] [place] [address] 03/14/2013 12:05:17 03/14/2013 12:35:20 [id number] Betty Masterson MD OFFICE- [place] [address] [place] [address] 04/16/2013 13:44:30 04/16/2013 14:33:37 Rheumatoid arthritis [id number] Betty Masterson MD [facility] [address] [facility] [address] [place] [address] 05/21/2013 12:37:01 05/21/2013 13:18:40 Low back pain [id number] Health Concerns Section Related Observation LastModified by Organization Detai ls LastModified Time None Recorded Concern Status LastModified by Organization Details LastModified Time None Recorded Advance Directives Directive N: Payers Insurance Date Sequence Insurance Name Policy Number Policy Cárdenas Covered Member ID Cárdenas Member ID Guarantor Name 11/23/2013 1 [place] Belen Pineda [id number] Belen Pineda 11/23/2013 2 [facility] (MEDICARE SUPPLEMENT) Belen Pineda [id number] Belen Pineda Notes Date Note Type [...] mechanical. [facility] - Rheumatology & Arthritis Certified Pharmacy Technician 07/25/2012 15:39:56 02/04/2013 text/html PMR/RA. Pt denie [...] town. [facility] - Rheumatology & Arthritis Certified Pharmacy Technician 02/04/2013 16:35:48 03/14/2013 text/html PMR/RA. Pt denie [...] paresthesia. [facility] - Rheumatology & Arthritis Certified Pharmacy Technician 03/15/2013 14:11:56 04/16/2013 text/html PMR/RA. Pt denie [...] help. [facility] - Rheumatology & Arthritis Certified Pharmacy Technician 04/18/2013 12:51:36 05/21/2013 text/html PMR/RA. Pt denie [...] for inflammatory arthritis negative. Betty Masterson MD [address], [place], [address], [facility] - Rheumatology & Arthritis Certified Pharmacy Technician 05/21/2013 13:21:27 OBGyn Episode No OBEpisode recorded.
--- OUTSIDE RECORDS SUMMARY | 2024-10-17 10:11 | XMS_ITS | Patient Health Record ---
Author Organization [facility] Address [address] [place] [address] Care Team Providers Care Race Relations Professor Name Role Phone [facility] [phone] [facility] Primary Care Provider Unavailable Hugo Alarcon Unavailable [phone] Reason For Referral No Information Medications Medication [...] Problem Status W/U Status Risk Notes Problem [id number] Pain of both sacroiliac joints (M53.3) Active confirmed Problem 465965334 Hx of laminectomy (Z98.890) Active confirmed Plan Of Treatment No Information Insurance Providers Payer Name Payer Address Payer Phone Subscriber Number Group Number Insured Name Patient Relationship to Insured Coverage Start Date Coverage End Date MEDICARE PART B [address] [phone] [id number] SINTIA GUEVARA Self [place] [address] [id number] PLAN F SINTIA GUEVARA Self - patient [...]
--- OUTSIDE RECORDS SUMMARY | 2024-10-17 10:12 | XMS_ITS | Data Portability ---
Author Organization [facility], [facility], OFFICE Address [address] [facility] [address] [place] [address] Care Team Providers Care Director Of Catering Sales Name Role Phone DARLING MONDRAGON Referring Provider [...] instrumented fusion in [address]with Dr. Sheppard in [place] but none since surgery. CT Lspine done [...] instrumented fusion in [address]with Dr. Sheppard in [place] but none since surgery. CT Lspine done [...] fusion [place] [address] Sheppard in [place] but none since surgery. CT Lspine done [...] By Organization Details Last Modified Time 01/20/2016 01324 low back arthritis: exercises [email or web address] Not available [...] Details Recorded Time Lumbosacral spondylosis without myelopathy [id number] Soha Gruber MD [address], [address] , [facility], [facility] 18:34:21 Degeneration of lumbosacral intervertebral disc 72994557 Soha Gruber MD [address] [address], [place], [address] , [facility] [place], [facility] 18:34:21 Low back pain [id number] Soha Gruber MD [address],[place] [address], [place], [address] , [facility], [facility] 18:34:21 Lumbar post-laminecto my syndrome 273904085 Soha Gruber MD [address] [facility], [place], [address] , [facility], [facility] 18:34:21 Lumbosacral radiculitis [id number] Soha Gruber MD [address], [place], [address], [facility] [place], [facility] 18:34:21 Problem Notes None recorded. Procedures Surgical History Date Name Laterality Status Provider Name and Address Organization Details Recorded Time 04/10/19 14 Cataract Surgery completed [facility] [place], [facility] 01/20/2016 17:03:25 09/07/19 09 Spinal Surgery completed [facility] [place], [facility] 01/20/2016 17:24:18 04/10/18 84 Shoulder Surgery completed [facility] [place], [facility] 01/20/2016 17:03:25 04/10/18 82 Shoulder Surgery completed [facility] [place], [facility] 01/20/2016 17:03:25 04/10/18 74 Hysterectomy completed [facility] [place], [facility] 01/20/2016 17:03:25 Other completed [facility] 01/20/2016 17:03:25 Imaging Results None recorded. Procedure [...] Body height Body mass index (BMI) Systolic And Diastolic Provider Name and Address Organization Details Last Updated DateTime 01/20/2016 70533.54 4656 g 98.2 [degF] 154.94 cm 28.1 kg/m2 149/77 mm[Hg] Leon Neumann [facility] [place], [facility] 17:20:13 Date Recorded Heart rate Systolic And Diastolic Provider Name and Address Organization Details Last Updated DateTime 03/08/2016 78 /min 147/89 mm[Hg] Miguel Gruber MD [address] [facility] [address], [place], [address], [facility] [place], [facility] 03/08/2016 17:57:44 Date Recorded Body mass index (BMI) Body height Body weight Provider Name and Address Organization Details Last Updated DateTime 03/08/2016 28 kg/m2 154.94 cm 47171.54977 g aida daria [facility] [place], [facility] 03/08/2016 16:58:33 Social History Question Answer Notes LastModified by Organizat ion Details LastModified Time Tobacco Smoking Status Never Smoker Not Available [employer] 02/04/2020 03:20:54 Are You Blind Or Do You Have Difficulty Seeing? No [id number] Information not available 02/04/2020 What Is Your Level Of Caffeine Consumption? None [id number] Information not available 02/04/2020 Are You Deaf Or Do You Have Serious Difficulty Hearing? No [id number] Information not available 02/04/2020 Which Illicit Or Recreational Drugs Have You Used? Denies [id number] Information not available 02/04/2020 Marital Status [email or web address] Informati on not available 01/20/2016 Do You Have Difficulty Walking Or Climbing Stairs? Yes [id number] Information not available 02/04/2020 Sex: Unknown Functional Status Question Answer Note LastModified by Organization D etails LastModified Time What is your level of alcohol consumption? None [id number] Information not available 02/04/2020 Do you have difficulty doing errands alone? No [id number] Information not available 02/04/2020 What is your occupation? retired [id number] Information not available 02/04/2020 Do you have difficulty dressing or bathing? No [id number] Information not available 02/04/2020 Mental Status Question Answer Note LastModified by Organization D etails LastModified Time Do you have difficulty concentrating, remembering or making decisions? No [id number] Information no t available 02/04/2020 Family History [...] COPD N Multiple Sclerosis N Heart Attack ([place]) N Ulcers N Anxiety Disorder N Diabetes [...] SNOMED-CT Code Diagnosis ICD10 Code Diagnosis Note [id number] Yobany Ibarra OFFICE [address] [facility] [address] [place] [address] 01/20/2016 16:53:38 01/20/2016 18:19:25 Lumbosacral spondylosis without myelopathy 40864385 M47.817 Degenerati on of lumbosacral intervertebral disc 67251331 M51.37 Low back pain 042357408 M54.5 Lumbar post-laminectomy syndrome 683983862 M96.1 Lumbosacra l radiculitis 68236623 M54.17 [id number] Miguel Gruber MD OFFICE [address] [facility] [facility] [address] [place] [address] 03/08/2016 16:32:40 03/08/2016 18:31:42 Lumbosacral spondylosis without myelopathy 46739293 M47.817 Degenerati on of lumbosacral intervertebral disc 58050081 M51.37 Low back pain 123913983 M54.5 Lumbosacra l radiculitis 62129784 M54.17 Lumbar post-laminectomy syndrome 000534209 M96.1 Health Concerns Section Related Observation LastModified by Organization Detai ls LastModified Time None Recorded Concern Status LastModified by Organization Details LastModified Time None Recorded Advance Directives Directive None Recorded Payers Insurance Date Sequence Insurance Name Policy Number Policy Cárdenas Covered Member ID Cárdenas Member ID Guarantor Name 03/05/2016 1 [place] Belen Pineda [id number] Belen Pineda 03/05/2016 2 [facility] (MEDICARE SUPPLEMENT) Belen Pineda [id number] Belen Pineda Notes Date Note Type [...] no incontinence; no shortness of breath Yobany Fleming[address], [place], [address], [facility], [facility] 01/20/2016 18:19:07 03/08/2016 text/html Back PainReporte [...] shortness of breath Miguel Gruber MD [address] [facility] [address], [place], [address], [facility], [facility] 03/09/2016 14:18:20 OBGyn Episode No OBEpisode recorded.
--- OUTSIDE RECORDS SUMMARY | 2024-10-17 10:12 | XMS_ITS | Data Portability ---
Author Organization [place] - [facility] - Address [address] [place] [address] Assessment No assessment recorded. Plan of Treatment Reminders Order Date Submit Date Provider Last Modified By Organization Details Last Modified Time Details Appointments None recorded. Lab CMP, serum or plasma 2024 025 [facility] (Lab), [place] [address], [address], 5 03:16:59 CMP, serum or plasma [address] (Lab), [address], [place], [address], 4 13:08:30 CBC [address] (Lab), [address] [place], [address], 4 13:08:31 TSH, serum or plasma [address] (Lab), [address], [place], [address], 4 13:08:31 LDL, calculated , serum (OBS) [address] (Lab), [address], [place], [address], 4 13:08:31 Referral physical therapist referral 2023 024 [facility], [address], [place], [address], 4 15:15:22 Procedures None recorded. Surgeries None recorded. Imaging US, breast, unilateral 2022 023 [email or web address] 0 [facility] (Radiology), [address], [place], [address], 3 16:40:32 Medication Orders dexamethas one sodium phosphate 10 mg/mL injection solution 2024 025 [email or web address], [address] [place] [address], [address], 5 14:11:15 metoprolol succinate ER 25 mg tablet,ext ended release 24 hr 2023 024 [email or web address], [address] [place] [address], [address], 5 13:16:06 gabapentin 100 mg capsule 2023 024 [email or web address], [address] [place] [address], [address], 5 13:15:25 Valium 2 mg tablet 2023 024 [facility] #[id number], [address] [place], [address], 4 16:39:28 Actonel 150 mg tablet 2022 023 [id number], [address] [place], [address], 3 16:36:01 Voltaren Arthritis Pain 1 % topical gel 2022 023 [facility] #[id number], [address] [place], [address], 3 16:25:22 Patient TargetsNo targets recorded. Patient Instructions Encounter Date Encounter Id Patient Instructions Last Modified By Organization Details Last Modified Time 04/17/2024 [id number] high blood pressure: care instructions Not available [...] Abnormal Flag Note LastModifiedBy Organization Detail LastModifiedTime 02/29/2002/15/2023 MAMMO , scree robert, digit al, bilat eral No observ ation record ed. [id number], [place], [address], 06/10/2023 10:38:04 03/21/20 23 02/15/2023 MAMMO , scree robert, bilat eral No observ ation record ed. [email or web address] Not Available 2022 18:21:24 09/29/19 25 09/28/2024 MR, malvin ngiop ancre atogr am, w/wo contr ast No observ ation record ed. [email or web address] [facility] [address], [place], [address], 09/30/2024 09:52:01 Result Notes None recorded. Problems Name Problem SNOMED Code Status Onset Date Resolution Date Notes Provider Name and Address Organization Details Recorded Time Essential hypertensio n 92618669 Active 2022 Jordyn Archer [facility] 3 11:33:07 Mammography abnormal 628915373 Active 2022 AVA Abbi [address] [place] [address], [place], [address] [place] [facility] [place] 3 16:21:52 Osteoarthri tis 232489710 Active [address], [address], [facility] [place] 3 16:24:28 Osteoporosi s 45040853 Active [address], [address], [place] [facility] [place] 3 16:35:08 Spasm of back muscles 817351461 Active [address], [address], [facility] [place] 4 15:46:32 Hyperlipide mya 96654840 Active [address] [facility] [place] 4 09:27:56 Occult blood detected in feces 83963784 Active [address] [facility] [place] 4 09:28:07 Pain of right knee joint 0968711462235 00 Active [address] [facility] [place] 4 09:28:13 Rheumatoid arthritis 14262129 Active [address] 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 Procedures Surgical History Date Name Laterality Status Provider Name and Address Organization Details Recorded Time 08/10/19 Knee Replacement completed Not Available [facility] 05/2023 10:37:05 Neurosurgery completed Jennifer Prince [facility] [place] 04/24/2018 16:21:54 Back Surgery completed Not Available [facility] 06/10/2023 10:37:05 Cataract Surgery completed Not Available [facility] 06/10/2023 10:37:05 Unlisted procedure stomach completed Not Available [facility] 06/10/2023 10:37:05 Unlisted procedure shoulder completed Not Available [facility] 06/10/2023 10:37:05 Imaging Results None recorded. Procedure [...] PANTOPRA ZOLE SODIUM M odify By: HATTIE Practic e ID: [id number] Enc ounter DateTime : [...] iginal Start Date: [id number] Modify By: HATTIE Practic e ID: [id number] Enc ounter DateTime : [...] and Address Organization Details Last Updated DateTime 5 152.4 cm 27.7 kg/m2 66634.1 2 g 72 /min 97 % 97 % 110/68 mm[Hg] [facility] [place] 5 13:19:10 Date Recorded Body height Oxygen saturation Oxygen saturation in Arterial blood by Pulse oximetry Heart rate Body mass index (BMI) Body weight Systolic And Diastolic Provider Name and Address Organization Details Last Updated DateTime 4 152.4 cm 99 % 99 % 97 /min 26.4 kg/m2 28110.9 7 g 97/53 mm[Hg] [facility] [place] 4 15:24:57 Date Recorded Body height Heart rate Oxygen saturation Oxygen saturation in Arterial blood by Pulse oximetry Systolic And Diastolic Provider Name and Address Organization Details Last Updated DateTime 4 152.4 cm 101 /min 99 % 99 % 116/62 mm[Hg] [facility] [place] 4 17:26:11 Date Recorded Body height Body mass index (BMI) Body weight Heart rate Oxygen saturation Oxygen saturation in Arterial blood by Pulse oximetry Systolic And Diastolic Provider Name and Address Organization Details Last Updated DateTime 4 152.4 cm 26.6 kg/m2 07869.5 6 g 80 /min 98 % 98 % 110/60 mm[Hg] [facility] 4 16:43:21 Date Recorded Body weight Body mass index (BMI) Body height Oxygen saturation Oxygen saturation in Arterial blood by Pulse oximetry Heart rate Systolic And Diastolic Provider Name and Address Organization Details Last Updated DateTime 3 84250.3 8 g 26.2 kg/m2 152.4 cm 98 % 98 % 78 /min 120/62 mm[Hg] [facility] [place] 3 16:13:28 Social History Question Answer Notes LastModified by Organizat ion Details LastModified Time Tobacco Smoking Status Never Smoker Jennifer Prince [facility] 04/24/2018 16:29:31 Do You Have An Advance Directive? Yes Information not available 04/24/2018 Are You Blind Or Do You Have Difficulty Seeing? No [email or web address] Information not available 04/17/2024 What Is Your Level Of Caffeine Consumption? Occasional Information not available 03/13/2023 Are You Deaf Or Do You Have Serious Difficulty Hearing? No [email or web address] Information not available 04/17/2024 Diabetes No Information no t available 04/24/2018 What Type Of Diet Are You Following? REGULAR Information not available 04/24/2018 Family History Of Heart Disease? Yes Information not available 04/24/2018 High Blood Pressure Yes Information not available 04/24/2018 High Cholesterol No Informat ion not available 04/24/2018 Do You Have Difficulty Bathing Yourself Without Assistance? No Information not available 04/17/2024 Are You Able To Eat And Drink Without Assistance? Yes [email or web address] Information not available 04/17/2024 Is It Difficult To Get Yourself Up And Out Of Bed Or A Chair? No [email or web address] Information not available 04/17/2024 Marital Status Informatio n not available 04/24/2018 Do You Have A Medical Power Of Oyster Sorter? Yes Information not available 04/17/2024 What Was The Date Of Your Most Recent Tobacco Screening? 04/17/2024 [email or web address] Information not available 04/17/2024 What Is Your Relationship Status? [id number] Information not available 06/10/2023 Do You Use Your Seat Belt Or Car Seat Routinely? Yes [email or web address] Information not available 04/17/2024 How Much Tobacco Do You Smoke? No Information not available 04/24/2018 General Stress Level Low Information not available 04/24/2018 Do You Use Sunscreen Routinely? Yes [email or web address] Information not available 04/17/2024 Has Tobacco Cessation Counseling Been Provided? Yes Information not available 03/13/2023 On What Date Was Tobacco Cessation Counseling Provided? 04/17/2024 [email or web address] Information not available 04/17/2024 How Many Years Have You Smoked Tobacco? 0 Information not available 04/24/2018 Do You Have Difficulty Walking Or Climbing Stairs? No [email or web address] Information not available 04/17/2024 Sex: Unknown Functional [...] 04/24/2018 Do you have transportation difficulties? No [email or web address] Information not available 04/17/2024 Are you able to walk? YESWOREST [email or web address] Information not available 04/17/2024 Do you have difficulty doing errands alone? No [email or web address] Information not available 04/17/2024 Are you able to care for yourself? Yes [id number] Information not available 06/10/2023 What is your occupation? retired Information not available 04/24/2018 Do you have difficulty dressing or bathing? No [email or web address] Information not available 04/17/2024 What is your exercise level? Occasional Information not available 04/24/2018 Mental Status Question Answer Note LastModified by Organization D etails LastModified Time Do you have difficulty concentrating, remembering or making decisions? No [email or web address] Information no t available 04/17/2024 Family History Relationship Description Onset Age of this Age Resolved Age Notes LastModified by Organization Details LastModified Time Father Heart disease Not available 2018 16:21:13 Mother Heart disease Not available 2018 16:21:13 Medical History Condition Response Coronary Artery Disease N CVA/TIA (Stroke) N Neurologic Disorder (Parkinson's, tremor , MS) N COPD N Depression/Anxiety N Peripheral Arterial Disease N Pacemaker N Anemia N Genitourinary Disease N Heart Attack (ID) N Gastrointestinal Disease N Deep Vein Thrombosis N Diabetes N [...] SNOMED-CT Code Diagnosis ICD10 Code Diagnosis Note [id number] PEDRO JOHN MD. OFFICE - [facility] (SPECIALT Y OFFICE) [address] [place] [address] 04/24/2018 15:42:55 08/15/2020 03:48:50 Peripheral cyanosis 23028629 R23.0 Patient here to establish with CV [...] be CV in origin. Rheumatoid arthritis 698 70447 M06.9 See above [id number] PEDRO JOHN MD. OFFICE - [facility] (thePlatformT Y OFFICE) [address] [place] [address] 06/05/2018 14:17:41 06/05/2018 14:36:14 Peripheral cyanosis 47734765 R23.0 Patient here to establish with CV [...] and sooner if needed. Rheumatoid arthritis 698 26229 M06.9 See above Pre-surger y evaluation 119297125 Z01.818 RCRI would be moderate with FC >4 METs. No on exam and EKG noted No further testing needed prior prior [id number] [facility] [address] [place] [address] 03/13/2023 15:36:33 03/13/2023 16:40:32 Mammography abnormal 052129942 R92.8 will order ultrasound of left breast Osteoarthritis 965845722 M19.90 trial voltaren gel AAA qidl prn Osteoporosis 50786277 M8 1.0 will cont vitamin d and calciumwil l start actonel 150mg monthly [id number] [facility] [address] [place] [address] 04/27/2023 15:13:02 04/27/2023 16:17:05 Essential hypertension 42776965 I10 cont to monitor bp at homelow salt and caffeineco nt medication Osteoporosis 57614746 M8 1.0 will cont vitamin d and calciumwil l resume actonel 150mg monthly Spasm of back muscles 20 8499672 M62.830 will cont pain medication will refer to physical therapy [id number] [facility] [address] [place] [address] 05/16/2023 16:18:36 05/16/2023 17:37:00 Strain of neck muscle 035751812 S16.1XXA will give valium 2mg one po tid prn.use otc motrin /[facility]ol[facility] [id number] KYLE DIOP [facility] [address] [place] [address] 02/02/2022 00:00:00 02/02/2022 16:50:16 [id number] [facility] [address] [place] [address] 12/28/2022 00:00:00 12/28/2022 14:06:10 [id number] [facility] [address] [place] [address] 01/18/2023 00:00:00 01/18/2023 15:08:02 [id number] [facility] [address] [place] [address] 07/05/2023 16:29:41 07/05/2023 17:44:30 Essential hypertension 53383880 I10 cont to monitor bp at homelow salt and caffeineco nt medication Hyperlipidemia 19470402 E78.5 discussed diet and exerciseco nt current medication labs in 3-6 mos Neuropathy 668565320 G62 .9 medication refilled. [id number] [facility] [address] [place] [address] 04/17/2024 13:00:42 04/17/2024 14:11:16 Essential hypertension 13311210 I10 cont to monitor bp at homelow salt and caffeineco nt medication Hyperlipidemia 04225476 E78.5 discussed diet and exerciseco nt current medication labs in 3-6 mos Physical examination 588 0005 Z00.00 exam completed today Rheumatoid arteritis 399 863776 M05.20 will give decadron 10mg imfollow up with rheumatolo gy in [place] Liver enzy mes level above reference range 473925287 R74.8 will repeat liver enzymes in 6 moscall with results. Health Concerns Section Related Observation LastModified by Organization Detai ls LastModified Time None Recorded Concern Status LastModified by Organization Details LastModified Time None Recorded Advance Directives Directive Y: Payers Insurance Date Sequence Insurance Name Policy Number Policy Cárdenas Covered Member ID Cárdenas Member ID Guarantor Name 05/14/2024 2 [facility] (MEDICARE SUPPLEMENT) Belen Miriam [id number] Belen Miriam 04/17/2024 1 [place] Belen Pineda [id number] Belen Pineda Notes Date Note Type Note Provider Name and Address Organization Details Recorded Time 023 text/ht ml Pt is here for f/u mammo.dexa scan demonstrates osteoporosis of upper ext and osteopenia of lower spine and pelvis. AVA_Abbi [address] [place] [address], [place], [address] , [facility] 03/13/2023 16:36:45 024 text/ht ml Mrs. Pineda is a 77yo female who has a history of basal cell carcinoma and hypertension. Pt is here for a medication review. Risedronate- states took it and felt woozy. Thinks this caused her fall. Been taking hydrocodone 5/325 from neisha, states not helping.Fell 03/21/[address]. [address] [facility]. got Xrays. Neisha did surgery 03/31/23. currently doing rehab in [place] for wrist. Also has pain in shoulder and neck on lft side. Requesting muscle relaxer instead of pain pill. [address], [place], [address] , [facility] [place] 04/27/2023 15:48:31 024 text/ht ml Pt requesting referral. Pt reports left shoulder aching pain. She has noted since recent fall 03/21. Pt fell onto left side and tried to catch herself with the left wrist. She states pain is episodic. She has treated with acupuncture/massage/ice/heat with mild improvement. She would like to discuss options. [address], [place], [address] , [facility] [place] 05/16/2023 17:33:28 024 text/ht ml HyperlipidemiaReported bypatient.Compliance:compliantHyperte nsionReported bypatient.Associated Symptoms:no shortness of breath; no palpitations Pt is here to have labs ordered for annual wellness appt. [address], [place], [address] , [facility] [place] 07/05/2023 17:11:42 025 text/ht ml Annual Wellness [...] labs.Last colon screening-FOBT 01/02/23 negativeLast mammo-3DEXA-3Depress ion-noneUrinary yzpfvh-fuljLVD-[id number] blood count-3.[address], [address] , [facility] 04/17/2024 15:01:51 OBGyn Episode No OBEpisode recorded.
[2024-10-19 23:07] LABS: Calprotectin, Fecal 6 ug/g (0-120)
== END 2024-10-17 10:04 | disposition home or self-care (01) ==
PROVIDERS: Visit Provider Nurse Practitioner Family
DX: R19.5 Other fecal abnormalities (principal)
CPT/HCPCS: 83993